=== PATIENT | female | born 1960 | race African-American/Black ===

== ENCOUNTER 2020-08-14 20:43 | Inpatient (IN) | payer MEDICARE, MEDICAID, SELFPAY ==
[2020-08-14] VITALS (7 sets, daily range): BP systolic 159–188; BP diastolic 77–93; PULSE 82–131; RESP 16–30; TEMP 36.6–37.3; O2SAT 99–100
--- NOTE | ~2020-08-14 | XR_ITS ---
EXAMINATION: XR abdomen/kub 1V DATE: 08/15/2020 15:28 INDICATION: Nonfunctioning femoral dialysis catheter. TECHNIQUE: A supine view of the abdomen was obtained. COMPARISON: None. FINDINGS: Large-bore right femoral dialysis catheter with distal tip projecting over the expected region of the confluence of the inferior vena cava and right common iliac vein. Normal bowel gas pattern with mode rate amount of scattered colonic stool. Visualized lung bases are clear. IMPRESSION: 1. Right femoral central venous catheter in expected position with distal tip tip near the junction o f the inferior vena cava and right common iliac vein. Reviewed, dictated and finalized at location A. IMPRESSION: 1. Right femoral central venous catheter in expected position with distal tip t ip near the junction of the inferior vena cava and right common iliac vein.
--- NOTE | ~2020-08-14 | XR_ITS ---
EXAMINATION: XR abdomen/kub 1V INDICATION: Lower abdominal pain, nausea and vomiting TECHNIQUE: Supine view of the abdomen is obtained. COMPARISON: 08/15/2020 FINDINGS: A right-sided femoral catheter ends with its tip projecting to the right of midline at the level of the L4 vertebral body. The bowel gas pattern is normal. No dilated loops of bowel are eviden t. IMPRESSION: 1. No radiographic correlate for the patient's symptoms. Reviewed, dictated and finalized at location A.
--- NOTE | ~2020-08-14 | XR_ITS ---
EXAMINATION: XR foot LT min 3V DATE: 08/14/2020 23:12 INDICATION: Dorsal left foot pain TECHNIQUE: Dorsoplantar, two oblique and lateral views of the left foot were obtained. COMPARISON: None. FINDINGS: Alignment is normal. No fracture. Joint spaces are normal. Diffuse osteopenia. Small enthesophytes an d minimal enthesopathic ossification at the calcaneal insertion of the distal Achilles tendon. Additi onal small enthesophytes at the dorsal aspect of the navicular cuneiform articulation. Mild soft tiss ue swelling over the dorsum of the hindfoot. IMPRESSION: 1. No acute osseous abnormality. Reviewed, dictated and finalized at location A.
--- NOTE | ~2020-08-14 | XR_ITS ---
EXAMINATION: XR chest port-a-cath/central EXAM DATE: 08/19/2020 11:21 INDICATION: Tunneled catheter insertion. TECHNIQUE: Portable AP frontal chest x-ray was obtained. Comparison is made to prior examination from 08/14/2020. FINDINGS: There is a new right-sided Aguilar catheter, IJ approach, in position. No evidence of postp rocedure pneumothorax. There is no focal acute air space disease. There are no pleural effusions. Car diomediastinal silhouette is normal. There is aortic arteriosclerosis. The bones are osteopenic. The re are bony degenerative changes. IMPRESSION: 1. Catheter in position. 2. No evidence postprocedure pneumothorax. Reviewed, dictated and finalized at location B.
--- NOTE | ~2020-08-14 | US_ITS ---
EXAMINATION: US right upper quadrant DATE: 08/21/2020 08:42 INDICATION: Nausea and vomiting. TECHNIQUE: Multiple grayscale and Doppler ultrasound images of the abdomen were obtained. COMPARISON: None FINDINGS: The visualized portions of the head and body of the pancreas are normal. The liver is hilda l without focal lesion. There is normal flow in main portal vein. The gallbladder is normal in size. No gallstones or gallbladder wall thickening. There was no sonographic Woods sign. The common duct i s normal and measures 4 mm. There is a 1.7 cm cyst in right kidney. There is increased parenchymal ec hogenicity in right kidney, consistent with medical renal disease. IMPRESSION: 1. Increased renal parenchymal echogenicity, consistent with medical renal disease. Reviewed, dictated and finalized at location D. IMPRESSION: 1. Increased renal parenchymal echogenicity, consistent with medical renal dise ase.
--- NOTE | ~2020-08-14 | US_ITS ---
EXAMINATION: US renal BI EXAM DATE: 08/15/2020 08:27 INDICATION: Uremia. TECHNIQUE: Multiple grayscale and Doppler images of the kidneys were obtained (by a technologist who performed the scan) and subsequently reviewed. There is no prior study for comparison. FINDINGS: Right kidney: There is normal contour and increased echogenicity. It measures 8.7 x 5.5 x 4.9 centim eters. There are several right renal cysts, largest measuring 1.8 cm. There is no hydronephrosis. Left kidney: There is normal contour and increased echogenicity. It measures 8.9 x 4.9 x 5.1 centime ters. There is a renal cyst measuring 1.0 cm. There is no hydronephrosis. Bladder unremarkable. Both ureteral jets were confirmed in the bladder. IMPRESSION: 1. Echogenic renal parenchyma, medical renal disease. 2. Renal cysts. 3. No hydronephrosis. Reviewed, dictated and finalized at location A.
--- NOTE | ~2020-08-14 | XR_ITS ---
EXAMINATION: XR chest 2V DATE: 08/14/2020 21:46 INDICATION: Weakness and vomiting TECHNIQUE: frontal and lateral views of the chest were obtained. COMPARISON: None FINDINGS: The lungs are clear with no focal airspace opacities, pulmonary edema, pleural effusion or pneumothor ax. Cardiomegaly. Likely coronary artery stenting versus atherosclerotic calcification. Mild thoracic spondylosis. IMPRESSION: 1. Cardiomegaly. No acute cardiopulmonary disease. Reviewed, dictated and finalized at location A.
--- NOTE | ~2020-08-14 | XR_ITS ---
EXAMINATION: XR fl guide central line place DATE: 08/19/2020 11:08 INDICATION: Insertion of tunneled dialysis catheter TECHNIQUE: A single fluoroscopic spot image of the upper chest was obtained during procedure performe d by Dr. Bar. Radiologist was not present for the imaging or procedure. The amount of fluoroscopy ti me used during this procedure was 0.8 minutes. COMPARISON: None. FINDINGS: A right internal jugular central venous catheter is seen looping into the inferior neck and then exte nding caudally to at least the mid superior vena cava and beyond the inferior margin of the field of imaging. IMPRESSION: 1. Fluoroscopy utilized during right internal jugular central venous catheter placement the visualize d portion of which appears unremarkable on the provided image. See procedure note for further detail. Reviewed, dictated and finalized at location A. IMPRESSION: 1. Fluoroscopy utilized during right internal jugular central venous catheter p lacement the visualized portion of which appears unremarkable on the provided i mage. See procedure note for further detail.
--- NOTE | 2020-08-14 21:04 | ECG_ITS ---
Measurements Intervals [place] Rate: 116 P: 68 [place]: 133 QRS: -15 QRSD: 86 T: 120 QT: 334 QTc: 464 Interpretive Statements SINUS TACHYCARDIA ATRIAL PREMATURE COMPLEX LEFT ATRIAL ENLARGEMENT VOLTAGE CRITERIA FOR LVH CANNOT RULE OUT SEPTAL INFARCT, AGE INDETERMINATE ST-T WAVE ABNORMALITY IN HIGH LATERAL LEADS- CONSIDER ISCHEMIA BASELINE ARTIFACT- I, II, AVR, AVL, AVF, V1-V2 ABNORMAL ECG Electronically Signed On 08-15-2020 7:27:58 CDT by Amrit Harvey D.O.
--- NOTE | 2020-08-14 21:11 | ED.NAVMDI ---
HPI - Nausea/Vomiting/Diarrhea General Chief complaint: Nausea/Vomiting/Diarrhea Stated complaint: vomiting Time Seen by Provider: 08/14/20 20:56 Source: patient Mode of arrival: ambulatory History of Present Illness HPI Narrative: This patient is a 59 year old female with history of Stage 5 kidney disease, hypertension and hyperlipidemia who presents for evaluation of nausea and vomiting for 4 days. She denies associated abdominal pain, chest pain, fever or chills. She is preparing to have a AV fistula placed at [facility] on 08/24/20 so that she can get started on dialysis. She states she urinates very little. She has urinated a small amount today. She denies cough or sob. She reports weakness. MD elicited complaint: nausea and vomiting Related Data Home Medications Medication Instructions Recorded Confirmed aspirin 81 mg PO DAILY 08/14/20 08/15/20 atorvastatin 80 mg PO DAILY 08/14/20 08/15/20 clonidine HCl 0.3 mg PO BID 08/14/20 08/15/20 ezetimibe 10 mg PO DAILY 08/14/20 08/15/20 icosapent ethyl [Vascepa] 1 g PO DAILY 08/14/20 08/15/20 semaglutide [Ozempic] 0.5 mg SUBCUT WEEKLY 08/15/20 08/15/20 Allergies Allergy/AdvReac Type Severity Reaction Status Date / Time codeine Allergy Hives Verified 08/14/20 20:48 rivaroxaban [From Xarelto] Allergy Hives Verified 08/14/20 20:48 Review of Systems Review of Systems: All systems reviewed & are unremarkable except as noted in HPI and below Constitutional: Constitutional: Denies chills and Denies fever(s) Cardiovascular: Cardiovascular: Denies chest pain Respiratory: Respiratory: Denies cough and Denies dyspnea Gastrointestinal: Gastrointestinal: Denies abdominal pain, Denies diarrhea, Reports nausea and Reports vomiting Genitourinary: Genitourinary: Denies hematuria and Denies dysuria [facility] Past Medical History Medical History (Updated 08/15/20 @ 05:32 by Priyanka William MD) End-stage renal disease (ESRD) Hypertension Family History Family History (Updated 08/15/20 @ 00:59 by Lurdes Conley RN) Mother Acute myocardial infarction Multiple myeloma Mother Diabetes mellitus Sibling Liver cancer Social History Social History Smoking packs per day: 0.5 Smoking cigarettes per day: 10.0 Smoking status: Current every day smoker Tobacco type: cigarettes Additional smoking assessment comments: started smoking around age 16 Alcohol intake: never Substance use: current Substance use type: marijuana Gender identity (if verbalized by the patient): Female Spiritual care concerns: No Exam Const: General: no acute distress and alert Nutritional Appearance: thin Orientation/consciousness: patient oriented x3 HENMT: Head: normocephalic and atraumatic Face and sinus: face symmetric Mouth: Yes Normal oral and palatal mucosa present and Yes oropharynx normal Teeth and gingiva: poor dentition Eyes: Pupils: Equal, round and reactive pupils present EOM: EOMs intact bilaterally Chest: Chest palpation & inspection: normal inspection of the chest Resp: Effort & Inspection: normal respiratory effort, no retractions and no use of accessory muscles Auscultation: clear to auscultation bilaterally Cardio: Rate: regular rate Rhythm: regular rhythm Heart sounds: Murmur heart sound present GI: GI Palp: Yes Soft to palpation, No Tenderness to palpation present (GI), No Guarding due to palpation present (GI) and No Rigid due to palpation Skin: General skin exam: normal color Rashes: no rashes Neuro: General: patient oriented x3 and moves all extremities Extrem: Other: left foot swelling Psych: Mental Status: mental status grossly normal Affect: normal affect Course Reevaluation(s) Reevaluation #1: I discussed with patient that she will need to be admitted and the cause of her symptoms is likely that she needs dialysis. She reports her doctors are in [place] but she does not want to go there for care at
[2020-08-14] MEDS: ONDANSETRON INJ 4 MG/2 ML VIAL IV PUSH (21:12)
[2020-08-14] MEDS: SODIUM CHLORIDE 0.9% IV 500 ML 999 ML IV CONT (21:20)
--- NOTE | 2020-08-14 21:27 | PC.NURSE ---
Andrez took the EKG, I am just charting it for him.
[2020-08-14 21:34] LABS: Basophils Percent Auto 0.4 % (0.2-1.2); Eosinophils Percent Auto 9.1 % (0-4.4); Hematocrit 31.2 % (37.0-47.0); Hemoglobin 9.8 g/dL (12.0-15.0); Immature Granulocyte Absolute 0.04 K/mm3 (0.00-0.031); Immature Granulocyte Percent A 0.4 % (0-0.5); Lymphocytes Absolute Auto 1.61 K/mm3 (0.9-3.2); Lymphocytes Percent Auto 14.6 % (18.3-44.2); Mean Corpuscular HGB Conc 31.4 g/dl (32-36); Mean Corpuscular Hemoglobin 24.4 pg (26-34); Mean Corpuscular Volume 77.8 fl (80-100); Mean Platelet Volume 10.4 fl (7.4-10.4); Monocytes Absolute Auto 0.7 K/mm3 (0.1-0.6); Neutrophils Absolute Auto 7.7 K/mm3 (1.3-6.7); Neutrophils Percent Auto 69.5 % (45.5-73.1); Platelet Count Result 452 k/mm3 (150-375); Red Blood Count 4.01 M/mm3 (4.2-5.4); Red Cell Distribution Width 16.5 % (11.5-14.5)
[2020-08-14 21:41] LABS: Add Urine Microscopic? YES; Appearance Urine Cloudy (Clear); Bilirubin Urine Negative (Negative); Blood Urine Negative (Negative); Color Urine Yellow (Yellow); Glucose Urine UA Negative (Negative); Ketones Urine Negative (Negative); Leukocyte Esterase Ur Negative LEU/UL (Negative); Mucus Urine Rare /lpf; Nitrate Urine Negative (Negative); Protein Urine 3+ mg/dL (Negative); RBC Urine 0-2 /hpf (0-2); Specific Grav Ur 1.013 (1.001-1.035); Squamous Epithelial Cell Urine Many /hpf (Few); Urobilinogen Urine Negative mg/dL (<2.0)
[2020-08-14 21:50] LABS: Alanine Aminotransferase 16 U/L (4-35); Albumin Level 4.6 g/dL (3.5-5.1); Alkaline Phosphatase 116 U/L (38-126); Anion Gap 20 mmol/L (8-16); Aspartate Amino Transferase 19 U/L (14-36); Bilirubin,Total 0.3 mg/dL (0.2-1.3); Blood Urea Nitrogen 112 mg/dL (7-17); Calcium 10.1 mg/dL (8.4-10.2); Carbon Dioxide 20 mmol/L (22-30); Chloride 103 mmol/L (98-107); Estimated CRCL calculation 6 ml/min; Estimated Glomerular Filt Rate 7; Glucose 123 mg/dL (65-105); Potassium 3.5 mmol/L (3.4-5.0); Sodium 143 mmol/L (137-145)
[2020-08-14 22:25] LABS: Glucose Point of Care 102 (65-105)
[2020-08-14 22:32] LABS: Lactic Acid Reflex 0.8 mmol/L (0.7-2.1)
[2020-08-14] MEDS: SODIUM CHLORIDE 0.9% IV 1,000 ML 75 ML IV CONT (23:01)
[2020-08-15] VITALS (13 sets, daily range): BP systolic 142–190; BP diastolic 68–87; PULSE 60–88; RESP 12–18; TEMP 36.2–37.2; O2SAT 99–100; BMI 17.0
--- NOTE | 2020-08-15 00:40 | ADMGEN ---
This patient, Rayne Gracia, was admitted to Medical [facility]- at 0035. Patient/family oriented to hospital policies and general routines including ID bracelet, bed and alarms, visiting hours, pain management, procedures, bathroom and other care routines, personal items, smoking policy, room service/diet, and visiting hours. Valuables list has been completed. Information on how to activate the Rapid Response Team has been discussed. Patient/Family are encouraged to report perceived risks to care and to ask questions if they do not understand what they are told or what they should do.
[2020-08-15] MEDS: SODIUM CHLORIDE 0.9% IV 1,000 ML 75 ML IV CONT (02:26)
--- NOTE | 2020-08-15 05:41 | PM.IMHP ---
H&P: HPI History of Present Illness Date/Time: 08/15/20 06:10 Chief complaint: Nausea and vomiting Narrative: Rayne Gracia is a 59 year old female with a past medical history of hypertension, diabetes mellitus, and chronic kidney disease stage 5 not yet on dialysis who presented to the ER with nausea and vomiting. The patient reports to me that she has had 30-40 lb weight loss over the last 3-4 months. She has had progressive decreased appetite. She has noticed that over the last couple of weeks food has not tasted right. She has had progressive generalized fatigue and itching. Over the last 4 days she has developed nausea and vomiting of clear emesis. She denies any coffee-ground emesis or hematemesis. She has not had any associated abdominal pain or changes in bowel habits. She has had 2 days of a mild headache and has been less organized than usual and feels a bit confused. She has very little urine output over the last several days. She is scheduled to have an AV fistula placed 08/24/2020 4 anticipated need for dialysis in the near future. She denies any cough or congestion. She has not had any fevers or chills. She does have intermittent shortness of breath associated with her COPD. She has obstructive sleep apnea and uses CPAP at home. She does report chronic sharp bilateral lower extremity pain in her feet. The pain is worse in her left foot compared to her right. She denies a history of diabetic peripheral neuropathy. She has been told in the past that she may have some gout. Her feet are chronically tender to palpation but she has not noticed any swelling or wounds. The patient decided to come to this facility instead of going to [facility] because her brother is currently undergoing treatment for liver cancer and he did not feel well enough to drive her to [facility]. Review of Systems Review of Systems: Narrative: 12 systems were reviewed with pertinent positives and negatives per HPI. Except as documented in the HPI, all other systems were reviewed and are negative. 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 Diabetes mellitus Diabetic retinopathy End-stage renal disease (ESRD) Patient is scheduled to have an AV fistula placed 08/24/2020 Hyperlipidemia Hypertension Obstructive sleep apnea With CPAP use with a pressure of 9 Surgical History Surgical History (Updated 08/15/20 @ 08:05 by Martha June DO) History of left-sided carotid endarterectomy 2005 History of total hysterectomy with bilateral salpingo-oophorectomy (BSO) Due to uterine fibroid and menorrhagia Family History Family History Mother Acute myocardial infarction Multiple myeloma Diabetes mellitus Sibling Liver cancer Brother age 51 Social History Social History (Updated 08/15/20 @ 08:01 by Martha June DO) Smoking packs per day: 0.5 Smoking cigarettes per day: 10.0 Years smoked: 43 Smoking pack-years: 21.50 Smoking status: Current every day smoker Tobacco type: cigarettes Additional smoking assessment comments: started smoking around age 16 Alcohol intake: former Alcohol use details: She is a recovering alcoholic. She used to drink a pt of Nelly had day but quit drinking 11 years ago when she had to raise her granddaughter while her daughter was in custodial. Substance use: current Substance use type: marijuana Other substance usage details: Twice weekly Additional living arrangements comments: She lives at home with her mother has multiple myeloma and her brother who is suffering from liver cancer. Gender identity (if verbalized by the patient): Female
[2020-08-15 06:21] LABS: Anion Gap 19 mmol/L (8-16); Blood Urea Nitrogen 113 mg/dL (7-17); Calcium 9.2 mg/dL (8.4-10.2); Carbon Dioxide 17 mmol/L (22-30); Chloride 109 mmol/L (98-107); Estimated CRCL calculation 7 ml/min; Estimated Glomerular Filt Rate 9; Glucose 124 mg/dL (65-105); Potassium 3.7 mmol/L (3.4-5.0); Sodium 145 mmol/L (137-145)
[2020-08-15 07:38] LABS: Basophils Absolute Auto 0.1 K/mm3 (0.0-0.1); Basophils Percent Auto 0.5 % (0.2-1.2); Eosinophils Percent Auto 9.9 % (0-4.4); Hematocrit 29.5 % (37.0-47.0); Hemoglobin 9.3 g/dL (12.0-15.0); Immature Granulocyte Absolute 0.04 K/mm3 (0.00-0.031); Immature Granulocyte Percent A 0.4 % (0-0.5); Lymphocytes Absolute Auto 1.52 K/mm3 (0.9-3.2); Lymphocytes Percent Auto 15.1 % (18.3-44.2); Mean Corpuscular HGB Conc 31.5 g/dl (32-36); Mean Corpuscular Hemoglobin 24.5 pg (26-34); Mean Corpuscular Volume 77.6 fl (80-100); Monocytes Absolute Auto 0.9 K/mm3 (0.1-0.6); Monocytes Percent Auto 8.5 % (2.6-8.5); Neutrophils Absolute Auto 6.6 K/mm3 (1.3-6.7); Neutrophils Percent Auto 65.6 % (45.5-73.1); Platelet Count Result 411 k/mm3 (150-375); Red Cell Distribution Width 16.2 % (11.5-14.5); White Blood Count 10.1 K/mm3 (4.5-10.0)
[2020-08-15 08:34] LABS: Glucose Point of Care 122 (65-105)
[2020-08-15] MEDS: ASPIRIN 81 MG CHEWABLE TABLET PO (09:36)
[2020-08-15] MEDS: ATORVASTATIN 40 MG TABLET 80 MG PO (09:36)
[2020-08-15] MEDS: cloNIDine HCL 0.1 MG TABLET 0.3 MG PO ×2 (09:36→17:37)
[2020-08-15] MEDS: OMEGA 3 POLYUNSAT FATTY ACIDS 1 GM CAP PO (09:36)
[2020-08-15] MEDS: EZETIMIBE 10 MG TABLET PO (09:36)
--- NOTE | 2020-08-15 09:38 | PM.CNGS ---
Assessment and Plan Assessment and plan (1) End-stage renal disease (ESRD): Code(s): N18.6 - End stage renal disease Status: Chronic (2) Encounter for central line placement: Code(s): Z45.2 - Encounter for adjustment and management of vascular access device Status: Acute Assessment and Plan: no consultation was performed. Patient will have Brian catheter placed femoral vein at the bedside. This should suffice for acute dialysis needs this weekend. 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 Diabetes mellitus Diabetic retinopathy End-stage renal disease (ESRD) Patient is scheduled to have an AV fistula placed 08/24/2020 Hyperlipidemia Hypertension Obstructive sleep apnea With CPAP use with a pressure of 9 Surgical History Surgical History (Updated 08/15/20 @ 08:05 by Martha June DO) History of left-sided carotid endarterectomy 2004 History of total hysterectomy with bilateral salpingo-oophorectomy (BSO) Due to uterine fibroid and menorrhagia Family History Family History Mother Acute myocardial infarction Multiple myeloma Diabetes mellitus Sibling Liver cancer Brother age 51 Social History Social History (Updated 08/15/20 @ 08:01 by Martha June DO) Smoking packs per day: 0.5 Smoking cigarettes per day: 10.0 Years smoked: 43 Smoking pack-years: 21.50 Smoking status: Current every day smoker Tobacco type: cigarettes Additional smoking assessment comments: started smoking around age 16 Alcohol intake: former Alcohol use details: She is a recovering alcoholic. She used to drink a pt of Nelly had day but quit drinking 11 years ago when she had to raise her granddaughter while her daughter was in assisted. Substance use: current Substance use type: marijuana Other substance usage details: Twice weekly Additional living arrangements comments: She lives at home with her mother has multiple myeloma and her brother who is suffering from liver cancer. Gender identity (if verbalized by the patient): Female Spiritual care concerns: No Meds Home Medications and Allergies Home Medications Medication Instructions Recorded Confirmed Type aspirin 81 mg PO DAILY 08/14/20 08/15/20 History atorvastatin 80 mg PO DAILY 08/14/20 08/15/20 History clonidine HCl 0.3 mg PO BID 08/14/20 08/15/20 History ezetimibe 10 mg PO DAILY 08/14/20 08/15/20 History icosapent ethyl [Vascepa] 1 g PO DAILY 08/14/20 08/15/20 History semaglutide [Ozempic] 0.5 mg SUBCUT WEEKLY 08/15/20 08/15/20 History Allergies Allergy/AdvReac Type Severity Reaction Status Date / Time codeine Allergy Hives Verified 08/14/20 20:48 rivaroxaban [From Xarelto] Allergy Hives Verified 08/14/20 20:48 Vital Signs Vital Signs - 24 hr 08/14/20 20:45 08/14/20 21:48 08/14/20 21:49 Temperature 37.3 C Pulse Rate 131 H 84 86 Respiratory Rate 18 Blood Pressure 188/93 H 180/77 H 168/85 H Pulse Oximetry 100 08/14/20 21:50 08/14/20 21:51 08/14/20 21:52 Temperature Pulse Rate 82 97 94 Respiratory Rate 16 30 H Blood Pressure 180/77 H 187/87 H 168/85 H Pulse Oximetry 100 99 08/14/20 22:31 08/15/20 00:18 08/15/20 01:19 Temperature 36.6 C 37.2 C Pulse Rate 86 88 80 Respiratory Rate 18 18 16 Blood Pressure 159/83 H 165/80 H 168/70 H Pulse Oximetry 100 100 08/15/20 06:00 08/15/20 06:20 Temperature 36.8 C Pulse Rate 85 Respiratory Rate 16 Blood Pressure 187/6
--- NOTE | 2020-08-15 09:40 | P.OP_ITS ---
Procedure Note - Detailed Date of procedure: 08/15/20 Pre-op diagnosis: End-stage renal disease, inadequate venous acces end-stage renal disease, inadequate venous access Post-op diagnosis: same Procedure performed: placement right femoral Brian catheter for acute dialysis Description of procedure: the patient was supine in her hospital bed. methods time analyst-out as well as prep and drape was carried out. Full sterile precautions were used. Local anesthetic using 1% lidocaine was infiltrated in the area of the right femoral vein. Several punctures were required to get an adequate venous return. Eventually this was accomplished and I was able to pass a guidewire easily into the inferior vena cava. Additional local was infiltrated. The tract was dilated and a heparinized dual-lumen 20 cm Brian catheter was passed easily from the right femoral vein into the iliac and eventually the vena cava. Both ports aspirated blood and flushed easily. Both ports were flushed with heparin. Both ports were capped. The line was sutured to the skin with 2 0 nylon. Sterile dressing was applied. Patient tolerated the procedure well. Anesthesia: local ( 1% lidocaine) Surgeon: Rakan Bar MD Estimated blood loss (mL): 10 Drains: No Packing: No Pathology: none sent Complications: None Condition: stable Disposition: floor
[2020-08-15 11:36] LABS: Glucose Point of Care 105 (65-105)
--- NOTE | 2020-08-15 12:40 | P.CONNP_ITS ---
Assessment and Plan Assessment and plan (1) End-stage renal disease (ESRD): Code(s): N18.6 - End stage renal disease Status: Chronic Assessment and Plan: * progressive decline in kidney function per patient * referred for vascular access (AVF/AVG) by primary radioisotope technologist (Dr. Anthony Wetzel) * unfortunately, now with evidence of uremic symptoms * plan initiate renal replacement therapy/dialysis -- would have preferred placement of tunneled HD catheter but noted temporary HD catheter placed this AM so for treatment today * plan tunneled HD catheter sometime next week * outpatient dialysis arrangements to be done under the care of Dr. Wetzel (2) Uremia: Code(s): N19 - Unspecified kidney failure Status: Acute Assessment and Plan: * as evidenced by symptoms on admission * per patient these symptoms have been progressively getting worse last few months: - weight loss - progressive decline in appetite. - food not tasting right - fatigue - itching (due to rising phosphorus?) - nausea/vomiting * should improve with dialysis and removal of the uremic toxins but it may take some time (3) Uncontrolled hypertension: Code(s): I10 - Essential (primary) hypertension Status: Chronic Assessment and Plan: * partly due to ESRD but suspect inability to take oral BP medications playing a role * a component of rebound HTN as will since missed doses of clonidine * dialysis may help to some degree * resume oral medications as tolerated * follow trend of hemodynamics (4) Anemia: Code(s): D64.9 - Anemia, unspecified Status: Chronic Assessment and Plan: * likely due to ESRD * check iron studies * Epogen with HD * start IV venofer with HD if needed * follow trend of H/H (5) Metabolic acidosis: Code(s): E87.2 - Acidosis Status: Chronic Assessment and Plan: * due to ESRD * should correct with dialysis * follow trend (6) Renal osteodystrophy: Code(s): N25.0 - Renal osteodystrophy Status: Chronic Assessment and Plan: * check phosphorus and PTH * follow parameters (7) Diabetes mellitus: Qualifiers: Chronic kidney disease stage: stage 5, not on chronic dialysis Diabetes mellitus complication detail: with chronic kidney disease Diabetes mellitus complication status: with kidney complications Diabetes mellitus halfway insulin use: without rat exterminator use Diabetes mellitus type: type 2 Qualified Code(s): E11.22 - Type 2 diabetes mellitus with diabetic chronic kidney disease; N18.5 - Chronic kidney disease, stage 5 Code(s): E11.9 - Type 2 diabetes mellitus without complications Status: Chronic Assessment and Plan: * follow accuchecks * on SSI Will continue to follow. History of Present Illness Reason for Consult Consult date: 08/15/20 Reason for consult: end stage renal disease Chief Complaint Chief complaint: End-stage renal disease, inadequate venous acces History of Present Illness Narrative: The patient is a 59 year old female with a past medical history as outlined below who presented to the [facility] ER with complaints of nausea and vomiting. Along with the nausea and vomiting that was a more recent symptom, she also reports a 30-40 weight loss over the last several months associated with progressive decline in appetite and the sensation that food is not tasting right. Other
--- NOTE | 2020-08-15 12:40 | PM.CNNEP ---
Assessment and Plan Assessment and plan (1) End-stage renal disease (ESRD): Code(s): N18.6 - End stage renal disease Status: Chronic Assessment and Plan: progressive decline in kidney function per patient referred for vascular access (AVF/AVG) by primary cableman (Dr. Anthony Wetzel) unfortunately, now with evidence of uremic symptoms plan initiate renal replacement therapy/dialysis -- would have preferred placement of tunneled HD catheter but noted temporary HD catheter placed this AM so for treatment today plan tunneled HD catheter sometime next week outpatient dialysis arrangements to be done under the care of Dr. Wetzel (2) Uremia: Code(s): N19 - Unspecified kidney failure Status: Acute Assessment and Plan: as evidenced by symptoms on admission per patient these symptoms have been progressively getting worse last few months: - weight loss - progressive decline in appetite. - food not tasting right - fatigue - itching (due to rising phosphorus?) - nausea/vomiting should improve with dialysis and removal of the uremic toxins but it may take some time (3) Uncontrolled hypertension: Code(s): I10 - Essential (primary) hypertension Status: Chronic Assessment and Plan: partly due to ESRD but suspect inability to take oral BP medications playing a role a component of rebound HTN as will since missed doses of clonidine dialysis may help to some degree resume oral medications as tolerated follow trend of hemodynamics (4) Anemia: Code(s): D64.9 - Anemia, unspecified Status: Chronic Assessment and Plan: likely due to ESRD check iron studies Epogen with HD start IV venofer with HD if needed follow trend of H/H (5) Metabolic acidosis: Code(s): E87.2 - Acidosis Status: Chronic Assessment and Plan: due to ESRD should correct with dialysis follow trend (6) Renal osteodystrophy: Code(s): N25.0 - Renal osteodystrophy Status: Chronic Assessment and Plan: check phosphorus and PTH follow parameters (7) Diabetes mellitus: Qualifiers: Chronic kidney disease stage: stage 5, not on chronic dialysis Diabetes mellitus complication detail: with chronic kidney disease Diabetes mellitus complication status: with kidney complications Diabetes mellitus residential door installer insulin use: without residential door installer use Diabetes mellitus type: type 2 Qualified Code(s): E11.22 - Type 2 diabetes mellitus with diabetic chronic kidney disease; N18.5 - Chronic kidney disease, stage 5 Code(s): E11.9 - Type 2 diabetes mellitus without complications Status: Chronic Assessment and Plan: follow accuchecks on SSI Will continue to follow. History of Present Illness Reason for Consult Consult date: 08/15/20 Reason for consult: end stage renal disease Chief Complaint Chief complaint: End-stage renal disease, inadequate venous acces History of Present Illness Narrative: The patient is a 59 year old female with a past medical history as outlined below who presented to the [facility] ER with complaints of nausea and vomiting. Along with the nausea and vomiting that was a more recent symptom, she also reports a 30-40 weight loss over the last several months associated with progressive decline in appetite and the sensation that food is not tasting right. Other associated symptoms include generalized fatigue, itching, and the aforementioned nausea and vomiting which was more been issue in the last 4-5 days. In spite of the nausea and vomiting, she has not noted any type of coffee-ground emesis or bilious content. Other new symptoms is that she has noticed a decrease in urine output in the last several days as well. it should be noted that the patient has fairly advanced chronic kidney disease and was tenta
--- NOTE | 2020-08-15 13:22 | PM.IMPN ---
Progress Note: A&P Assessment and Plan (1) End-stage renal disease (ESRD): Code(s): N18.6 - End stage renal disease Status: Chronic Assessment and Plan: The patient is reporting multiple symptoms consistent with worsening uremia and renal function. Nephrology has been consulted and appreciate recommendations. Temporary HD catheter placed per General Surgery this morning. Appears she will be going for HD. She is feeling better today. Appears she will be going for tunneled catheter next week Await further recommendations from Nephrology Monitor Trend kidney function, uremia (2) Uncontrolled hypertension: Code(s): I10 - Essential (primary) hypertension Status: Chronic Assessment and Plan: BP elevated likely due to ESRD; suspect improvement with HD. She used to be on an ARB but was d/c given worsening renal function. She had not taken her home clonidine given her N/V. Continue home clonidine Monitor (3) Uremia: Code(s): N19 - Unspecified kidney failure Status: Acute Assessment and Plan: Likely secondary to #1. Suspect improvement with HD. Further recommendation from Nephrology appreciated. See above a/p (4) Diabetes mellitus: Qualifiers: Diabetes mellitus type: type 2 Diabetes mellitus installation specialist insulin use: without installation specialist use Diabetes mellitus complication status: with kidney complications Diabetes mellitus complication detail: with chronic kidney disease Chronic kidney disease stage: stage 5, not on chronic dialysis Qualified Code(s): E11.22 - Type 2 diabetes mellitus with diabetic chronic kidney disease; N18.5 - Chronic kidney disease, stage 5 Code(s): E11.9 - Type 2 diabetes mellitus without complications Status: Chronic Assessment and Plan: BGL seems well controlled. Accuchecks ACHS, hypoglycemia protocol, correctional insulin, diabetic diet Ozempic on hold given it is NF (5) Obstructive sleep apnea: Code(s): G47.33 - Obstructive sleep apnea (adult) (pediatric) Status: Acute Assessment and Plan: Continue home CPAP (6) Hyperlipidemia: Code(s): E78.5 - Hyperlipidemia, unspecified Status: Acute Assessment and Plan: LFTs WNL Continue home statin, zetia, and Vascepa (7) Coronary artery disease: Code(s): I25.10 - Atherosclerotic heart disease of [place] coronary artery without angina pectoris Status: Acute Assessment and Plan: Reports [place] in mid 30s. No acute issues Continue with aspirin and statin Monitor (8) Left foot pain: Code(s): M79.672 - Pain in left foot Status: Acute Assessment and Plan: She thinks she may have injured the foot after stepping on it wrong . She says ice helps but tylenol does not help. Xray of foot shows no acute osseous abnormality but shows enthesophytes at dorsal aspect of navicular cuneiform articulation and soft tissue swelling over dorsum of hindfoot. Will do ice packs for now Tylenol PRN for pain as I would like to refrain from NSAIDs given kidney disease Subjective Date/time seen: 08/15/20 13:22 Interval history: Patient is a 59 yo F with hypertension, diabetes mellitus, and chronic kidney disease stage 5 not yet on dialysis who is seen in follow up for CKD5 with uremia likely from worsening kidney disease. Patient states she is feeling better today. Her main complaint is her left foot pain. She states she may have stepped on her foot wrong and now is having some pain over the top of her left foot. She notes producing little urine and occasionally has some lower abdominal pressure; no dysuria. No other complaints a
[2020-08-15 14:09] LABS: Hepatitis B Surface Antigen Negative (Negative)
[2020-08-15 14:15] LABS: HAV RESULT Negative (Negative); Hepatitis B Core IgM Result Negative (Negative)
[2020-08-15 14:27] LABS: Hepatitis B Surface Anti Res Negative; Hepatitis C Virus Antibody Negative (Negative)
[2020-08-15] MEDS: HEPARIN SODIUM 1,000 UNITS/ML VIAL 4000 UNITS (15:05)
[2020-08-15 16:17] LABS: Glucose Point of Care 107 (65-105)
[2020-08-15 21:40] LABS: Glucose Point of Care 146 (65-105)
[2020-08-16] VITALS (21 sets, daily range): BP systolic 120–192; BP diastolic 71–104; PULSE 54–96; RESP 14–18; TEMP 36.3–37.4; O2SAT 98–100
[2020-08-16 05:27] LABS: Basophils Percent Auto 0.5 % (0.2-1.2); Eosinophils Absolute Auto 0.8 K/mm3 (0-0.3); Eosinophils Percent Auto 9.9 % (0-4.4); Hemoglobin 9.1 g/dL (12.0-15.0); Immature Granulocyte Absolute 0.04 K/mm3 (0.00-0.031); Immature Granulocyte Percent A 0.5 % (0-0.5); Lymphocytes Absolute Auto 1.36 K/mm3 (0.9-3.2); Lymphocytes Percent Auto 16.8 % (18.3-44.2); Mean Corpuscular HGB Conc 31.4 g/dl (32-36); Mean Corpuscular Hemoglobin 24.6 pg (26-34); Mean Corpuscular Volume 78.4 fl (80-100); Mean Platelet Volume 10.3 fl (7.4-10.4); Monocytes Absolute Auto 0.5 K/mm3 (0.1-0.6); Monocytes Percent Auto 6.5 % (2.6-8.5); Neutrophils Absolute Auto 5.3 K/mm3 (1.3-6.7); Neutrophils Percent Auto 65.8 % (45.5-73.1); Platelet Count Result 359 k/mm3 (150-375); Red Cell Distribution Width 16.2 % (11.5-14.5); White Blood Count 8.1 K/mm3 (4.5-10.0)
[2020-08-16 05:50] LABS: Albumin Level 3.8 g/dL (3.5-5.1); Anion Gap 15 mmol/L (8-16); Blood Urea Nitrogen 93 mg/dL (7-17); Calcium 9.4 mg/dL (8.4-10.2); Carbon Dioxide 21 mmol/L (22-30); Chloride 109 mmol/L (98-107); Estimated CRCL calculation 7 ml/min; Estimated Glomerular Filt Rate 9; Glucose 119 mg/dL (65-105); Magnesium 2.1 mg/dL (1.6-2.3); Phosphorus 6.5 mg/dL (2.5-4.5); Potassium 3.6 mmol/L (3.4-5.0); Sodium 145 mmol/L (137-145)
[2020-08-16 06:10] LABS: Iron 25 ug/dL (37-170)
[2020-08-16 06:19] LABS: Percent Iron Saturation 11 % (20-50)
[2020-08-16] MEDS: ATORVASTATIN 40 MG TABLET 80 MG PO (07:52)
[2020-08-16] MEDS: ASPIRIN 81 MG CHEWABLE TABLET PO (07:52)
[2020-08-16] MEDS: cloNIDine HCL 0.1 MG TABLET 0.3 MG PO ×2 (07:53→20:18)
[2020-08-16] MEDS: OMEGA 3 POLYUNSAT FATTY ACIDS 1 GM CAP PO (07:53)
[2020-08-16] MEDS: EZETIMIBE 10 MG TABLET PO (07:53)
[2020-08-16 08:19] LABS: Glucose Point of Care 117 (65-105)
--- NOTE | 2020-08-16 11:22 | P.OP_ITS ---
Procedure Note - Detailed Date of procedure: 08/16/20 Pre-op diagnosis: End-stage renal disease, inadequate venous acces Right femoral vein catheter dysfunction Post-op diagnosis: same Procedure performed: removal 20 cm right femoral vein Brain catheter, placeme nt new 24 cm right femoral vein Brian catheter with side port Description of procedure: the patient was supine in her hospital bed. The dressing and the right femoral vein Brian catheter was removed. The sutures were removed. The area was thoroughly prepped with ChloraPrep. Sterile technique was used and sterile draping was then carried out. The catheter and the surrounding area was again prepped with ChloraPrep. Local anesthetic was infiltrated in the skin around the entrance site and where the sutures would later be placed. A guidewire was passed through the lumen of the current 20 cm Brian catheter. This catheter was then removed and discarded leaving the guidewire in place. The new 24 cm Brian catheter with side port was then passed over the guidewire and into the right femoral vein, hopefully passing well into the inferior vena cava. Once in position, the guidewire was removed. Both ports and the side port aspirated blood and flushed easily with saline. I flushed these ports as well with heparin and then capped and occluded them. The new catheter was sutured to the skin with 2 0 nylon suture. A sterile sand wiched type dressing was then placed. Patient tolerated the procedure well. Anesthesia: local ( 1% lidocaine) Surgeon: Rakan Bar MD Estimated blood loss (mL): 3 Drains: No Packing: No Pathology: none sent Complications: None Condition: stable Disposition: floor Findings: new catheter, longer length of 24 cm with side port, placed and in good condition.
[2020-08-16 11:32] LABS: Glucose Point of Care 127 (65-105)
--- NOTE | 2020-08-16 11:55 | P.PNNP_ITS ---
Progress Note: A&P Assessment and Plan (1) End-stage renal disease (ESRD): Code(s): N18.6 - End stage renal disease Status: Chronic Assessment and Plan: * progressive decline in kidney function per patient * referred for vascular access (AVF/AVG) by primary combiner operator (Dr. Anthony Segura) - to be done by Dr. Gong at [facility] in 2 weeks * unfortunately, now with evidence of uremic symptoms * plan initiate renal replacement therapy/dialysis -- would have preferred placement of tunneled HD catheter but not feasible till next week; temporary HD catheter replaced this AM so will attempt treatment today * plan tunneled HD catheter sometime next week * outpatient dialysis arrangements to be done under the care of Dr. Segura (2) Uremia: Code(s): N19 - Unspecified kidney failure Status: Acute Assessment and Plan: * as evidenced by symptoms on admission * per patient these symptoms have been progressively getting worse last few months: - weight loss - progressive decline in appetite. - food not tasting right - fatigue - itching (due to rising phosphorus?) - nausea/vomiting * should improve with dialysis and removal of the uremic toxins but it may take some time (3) Uncontrolled hypertension: Code(s): I10 - Essential (primary) hypertension Status: Chronic Assessment and Plan: * better at this time * partly due to ESRD but suspect inability to take oral BP medications playing a role * a component of rebound HTN as well since missed doses of clonidine * dialysis may help to some degree * resume oral medications as tolerated * consider adding ARB/KARL-I once on chronic dialysis * follow trend of hemodynamics (4) Anemia: Code(s): D64.9 - Anemia, unspecified Status: Chronic Assessment and Plan: * likely due to ESRD * anemia studies with iron deficiency * Epogen with HD * IV venofer with HD * follow trend of H/H (5) Metabolic acidosis: Code(s): E87.2 - Acidosis Status: Chronic Assessment and Plan: * due to ESRD * should correct with dialysis * follow trend (6) Renal osteodystrophy: Code(s): N25.0 - Renal osteodystrophy Status: Chronic Assessment and Plan: * check phosphorus and PTH * follow parameters (7) Diabetes mellitus: Qualifiers: Chronic kidney disease stage: stage 5, not on chronic dialysis Diabetes mellitus complication detail: with chronic kidney disease Diabetes mellitus complication status: with kidney complications Diabetes mellitus termite treater insulin use: without termite treater use Diabetes mellitus type: type 2 Qualified Code(s): E11.22 - Type 2 diabetes mellitus with diabetic chronic kidney disease; N18.5 - Chronic kidney disease, stage 5 Code(s): E11.9 - Type 2 diabetes mellitus without complications Status: Chronic Assessment and Plan: * follow accuchecks * on SSI Will continue to follow. Subjective Date/time seen: 08/16/20 11:55 Attempted dialysis treatment yesterday but temporary femoral HD catheter did not work despite multiple interventions (flushing, adjusting position, reducing blood flow...etc) so treatment abandoned; Dr. Bar placed a new longer femoral HD catheter as unclear when patient will be able to get tunneled HD catheter; BP is doing better at this time Exam Narrative: Exam Narrative: General: thin AA female in NAD Heart: normal S1 and S2; no ru
--- NOTE | 2020-08-16 11:55 | PM.PNNEP ---
Progress Note: A&P Assessment and Plan (1) End-stage renal disease (ESRD): Code(s): N18.6 - End stage renal disease Status: Chronic Assessment and Plan: progressive decline in kidney function per patient referred for vascular access (AVF/AVG) by primary helpdesk specialist (Dr. Anthony Segura) - to be done by Dr. Gong at [facility] in 2 weeks unfortunately, now with evidence of uremic symptoms plan initiate renal replacement therapy/dialysis -- would have preferred placement of tunneled HD catheter but not feasible till next week; temporary HD catheter replaced this AM so will attempt treatment today plan tunneled HD catheter sometime next week outpatient dialysis arrangements to be done under the care of Dr. Segura (2) Uremia: Code(s): N19 - Unspecified kidney failure Status: Acute Assessment and Plan: as evidenced by symptoms on admission per patient these symptoms have been progressively getting worse last few months: - weight loss - progressive decline in appetite. - food not tasting right - fatigue - itching (due to rising phosphorus?) - nausea/vomiting should improve with dialysis and removal of the uremic toxins but it may take some time (3) Uncontrolled hypertension: Code(s): I10 - Essential (primary) hypertension Status: Chronic Assessment and Plan: better at this time partly due to ESRD but suspect inability to take oral BP medications playing a role a component of rebound HTN as well since missed doses of clonidine dialysis may help to some degree resume oral medications as tolerated consider adding ARB/KARL-I once on chronic dialysis follow trend of hemodynamics (4) Anemia: Code(s): D64.9 - Anemia, unspecified Status: Chronic Assessment and Plan: likely due to ESRD anemia studies with iron deficiency Epogen with HD IV venofer with HD follow trend of H/H (5) Metabolic acidosis: Code(s): E87.2 - Acidosis Status: Chronic Assessment and Plan: due to ESRD should correct with dialysis follow trend (6) Renal osteodystrophy: Code(s): N25.0 - Renal osteodystrophy Status: Chronic Assessment and Plan: check phosphorus and PTH follow parameters (7) Diabetes mellitus: Qualifiers: Chronic kidney disease stage: stage 5, not on chronic dialysis Diabetes mellitus complication detail: with chronic kidney disease Diabetes mellitus complication status: with kidney complications Diabetes mellitus mcc insulin use: without laborer marine terminal use Diabetes mellitus type: type 2 Qualified Code(s): E11.22 - Type 2 diabetes mellitus with diabetic chronic kidney disease; N18.5 - Chronic kidney disease, stage 5 Code(s): E11.9 - Type 2 diabetes mellitus without complications Status: Chronic Assessment and Plan: follow accuchecks on SSI Will continue to follow. Subjective Date/time seen: 08/16/20 11:55 Attempted dialysis treatment yesterday but temporary femoral HD catheter did not work despite multiple interventions (flushing, adjusting position, reducing blood flow...etc) so treatment abandoned; Dr. Bar placed a new longer femoral HD catheter as unclear when patient will be able to get tunneled HD catheter; BP is doing better at this time Exam Narrative: Exam Narrative: General: thin AA female in NAD Heart: normal S1 and S2; no rub Lungs: clear to auscultation Abdomen: soft, nontender, nondistended, positive bowel sounds Extremities: no cyanosis or clubbing; no edema Skin: warm and dry Objective Data Vital Signs Vital Signs: Vital Signs Temp Pulse Resp BP Pulse Ox 08/16/20 09:31 96 120/80 08/16/20 09:28 76 150/76 H 08/16/20 09:25 55 L 170/81 H 08/16/20 05:39 36.4 C 64 16 167/75 H 98 08/15/20 20:57 36.2 C L 60 18 146/82 H 100 08/15/20 20:
--- NOTE | 2020-08-16 12:51 | PM.IMPN ---
Progress Note: A&P Assessment and Plan (1) End-stage renal disease (ESRD): Code(s): N18.6 - End stage renal disease Status: Chronic Assessment and Plan: The patient is reporting multiple symptoms consistent with worsening uremia and renal function. Nephrology has been consulted and appreciate recommendations. Temporary HD catheter replaced per General Surgery this morning after first HD catheter failed yesterday. Appears she will be going for HD today. She is feeling better today despite this. Evidence of mild met acidosis likely due to ESRD; suspect will improve with HD. Await further recommendations from Nephrology Monitor Trend kidney function, uremia (2) Uncontrolled hypertension: Code(s): I10 - Essential (primary) hypertension Status: Chronic Assessment and Plan: BP elevated likely due to ESRD; suspect improvement with HD. She used to be on an ARB but was d/c given worsening renal function. She had not taken her home clonidine prior to arrival given her N/V. BP somewhat improved today Continue home clonidine Monitor (3) Uremia: Code(s): N19 - Unspecified kidney failure Status: Acute Assessment and Plan: Likely secondary to #1. Suspect improvement with HD. Further recommendation from Nephrology appreciated. See above a/p (4) Diabetes mellitus: Qualifiers: Diabetes mellitus type: type 2 Diabetes mellitus superintendent terminal insulin use: without nursing home use Diabetes mellitus complication status: with kidney complications Diabetes mellitus complication detail: with chronic kidney disease Chronic kidney disease stage: stage 5, not on chronic dialysis Qualified Code(s): E11.22 - Type 2 diabetes mellitus with diabetic chronic kidney disease; N18.5 - Chronic kidney disease, stage 5 Code(s): E11.9 - Type 2 diabetes mellitus without complications Status: Chronic Assessment and Plan: BGL seems well controlled. Accuchecks ACHS, hypoglycemia protocol, correctional insulin, diabetic diet Ozempic on hold given it is NF (5) Obstructive sleep apnea: Code(s): G47.33 - Obstructive sleep apnea (adult) (pediatric) Status: Acute Assessment and Plan: Continue home CPAP (6) Hyperlipidemia: Code(s): E78.5 - Hyperlipidemia, unspecified Status: Acute Assessment and Plan: LFTs WNL Continue home statin, zetia, and Vascepa (7) Coronary artery disease: Code(s): I25.10 - Atherosclerotic heart disease of [place] coronary artery without angina pectoris Status: Acute Assessment and Plan: Reports [place] in mid 30s. No acute issues Continue with aspirin and statin Monitor (8) Left foot pain: Code(s): M79.672 - Pain in left foot Status: Acute Assessment and Plan: She thinks she may have injured the foot after stepping on it wrong . She says ice helps at home but tylenol does not help. Xray of foot shows no acute osseous abnormality but shows enthesophytes at dorsal aspect of navicular cuneiform articulation and soft tissue swelling over dorsum of hindfoot; suspect this is possible etiology. Will do ice packs PRN for now Tylenol PRN for pain as I would like to refrain from NSAIDs given kidney disease Subjective Date/time seen: 08/16/20 12:51 Interval history: Patient is a 59 yo F with hypertension, diabetes mellitus, and chronic kidney disease stage 5 not yet on dialysis who is seen in follow up for CKD5 with uremia likely from worsening kidney disease. Patient states she is feeling better again today, although has not gotten dialysis treatment yet as her first temporary catheter had failed;
[2020-08-16] MEDS: IRON SUCROSE COMPLEX 200 MG in SODIUM CHLORIDE 0.9% IV 50 ML 240 MG IVPB (17:44)
[2020-08-16] MEDS: EPOETIN ALFA-EPBX 10,000 UNITS/ML VIAL 10000 UNITS IV PUSH (17:44)
[2020-08-16] MEDS: HEPARIN SODIUM 1,000 UNITS/ML VIAL 4000 UNITS (18:59)
[2020-08-16 19:37] LABS: Glucose Point of Care 84 (65-105)
[2020-08-16 20:36] LABS: Glucose Point of Care 125 (65-105)
[2020-08-17] VITALS (20 sets, daily range): BP systolic 105–165; BP diastolic 46–75; PULSE 60–114; RESP 16–22; TEMP 36.4–37; O2SAT 94–100; BMI 17.2
[2020-08-17 05:32] LABS: Hematocrit 29.1 % (37.0-47.0); Hemoglobin 9.2 g/dL (12.0-15.0); Mean Corpuscular HGB Conc 31.6 g/dl (32-36); Mean Corpuscular Hemoglobin 24.1 pg (26-34); Mean Corpuscular Volume 76.4 fl (80-100); Mean Platelet Volume 9.4 fl (7.4-10.4); Platelet Count Result 278 k/mm3 (150-375); Red Blood Count 3.81 M/mm3 (4.2-5.4); White Blood Count 8.6 K/mm3 (4.5-10.0)
[2020-08-17 06:05] LABS: Anion Gap 13 mmol/L (8-16); Blood Urea Nitrogen 39 mg/dL (7-17); Calcium 9.1 mg/dL (8.4-10.2); Carbon Dioxide 28 mmol/L (22-30); Chloride 101 mmol/L (98-107); Estimated CRCL calculation 10 ml/min; Estimated Glomerular Filt Rate 13; Glucose 129 mg/dL (65-105); Phosphorus 4.8 mg/dL (2.5-4.5); Potassium 3.5 mmol/L (3.4-5.0); Sodium 142 mmol/L (137-145)
[2020-08-17 06:11] LABS: Parathyroid Intact 238.6 pg/mL (7.5-53.5)
[2020-08-17 06:32] LABS: Vitamin D 25 Hydroxy 77.9 ng/mL
[2020-08-17 08:03] LABS: Glucose Point of Care 118 (65-105)
--- NOTE | 2020-08-17 09:47 | PM.IMPN ---
Progress Note: A&P Assessment and Plan (1) End-stage renal disease (ESRD): Code(s): N18.6 - End stage renal disease Status: Chronic Assessment and Plan: The patient is reporting multiple symptoms consistent with worsening uremia and renal function. Nephrology has been consulted and appreciate recommendations. Temporary HD catheter replaced per General Surgery 08/16 after first HD catheter failed the day prior. She had HD yesterday with improvement in Cr and BUN and met acidosis. She is feeling nauseous today, but willing to re-try Zofran for her symptoms. Await further recommendations from Nephrology Monitor Trend kidney function, uremia (2) Uncontrolled hypertension: Code(s): I10 - Essential (primary) hypertension Status: Chronic Assessment and Plan: BP elevated likely due to ESRD; suspect improvement with HD. She used to be on an ARB but was d/c given worsening renal function. She had not taken her home clonidine prior to arrival given her N/V. BP 150s sys today Continue home clonidine Monitor (3) Uremia: Code(s): N19 - Unspecified kidney failure Status: Acute Assessment and Plan: Likely secondary to #1. Suspect improvement with HD. Further recommendation from Nephrology appreciated. See above a/p (4) Diabetes mellitus: Qualifiers: Diabetes mellitus type: type 2 Diabetes mellitus supervisor furnace process insulin use: without chcf use Diabetes mellitus complication status: with kidney complications Diabetes mellitus complication detail: with chronic kidney disease Chronic kidney disease stage: stage 5, not on chronic dialysis Qualified Code(s): E11.22 - Type 2 diabetes mellitus with diabetic chronic kidney disease; N18.5 - Chronic kidney disease, stage 5 Code(s): E11.9 - Type 2 diabetes mellitus without complications Status: Chronic Assessment and Plan: BGL seems well controlled. Accuchecks ACHS, hypoglycemia protocol, correctional insulin, diabetic diet Ozempic on hold given it is NF (5) Obstructive sleep apnea: Code(s): G47.33 - Obstructive sleep apnea (adult) (pediatric) Status: Acute Assessment and Plan: Continue home CPAP (6) Hyperlipidemia: Code(s): E78.5 - Hyperlipidemia, unspecified Status: Acute Assessment and Plan: Continue home statin, zetia, and Vascepa (7) Coronary artery disease: Code(s): I25.10 - Atherosclerotic heart disease of [place] coronary artery without angina pectoris Status: Acute Assessment and Plan: Reports [place] in mid-30s. No acute issues Continue with aspirin and statin Monitor (8) Left foot pain: Code(s): M79.672 - Pain in left foot Status: Acute Assessment and Plan: She thinks she may have injured the foot after stepping on it wrong . She says ice helps at home but tylenol does not help. Xray of foot shows no acute osseous abnormality but shows enthesophytes at dorsal aspect of navicular cuneiform articulation and soft tissue swelling over dorsum of hindfoot; suspect this is possible etiology. Will do ice packs PRN for now Tylenol PRN for pain as I would like to refrain from NSAIDs given kidney disease Subjective Date/time seen: 08/17/20 09:47 Interval history: Patient is a 59 yo F with hypertension, diabetes mellitus, and chronic kidney disease stage 5 not yet on dialysis who is seen in follow up for CKD5 with uremia likely from worsening kidney disease. Patient states she is feeling nauseous today but has not vomited. She said Paddy made her even sicker last time she tried it, but is willing to try it again. She tells me she
[2020-08-17] MEDS: ATORVASTATIN 40 MG TABLET 80 MG PO (10:33)
[2020-08-17] MEDS: cloNIDine HCL 0.1 MG TABLET 0.3 MG PO ×2 (10:33→17:15)
[2020-08-17] MEDS: EZETIMIBE 10 MG TABLET PO (10:34)
[2020-08-17] MEDS: ASPIRIN 81 MG CHEWABLE TABLET PO (10:34)
[2020-08-17] MEDS: OMEGA 3 POLYUNSAT FATTY ACIDS 1 GM CAP PO (10:34)
[2020-08-17 12:58] LABS: Glucose Point of Care 118 (65-105)
--- NOTE | 2020-08-17 13:10 | PCNSR ---
On 08/17/20, the student, Devika Martínez, provided care and completed [facility] documentation on this patient. I have reviewed the student's documentation and agree with the findings.
[2020-08-17] MEDS: CENTRAL LINE FLUSH 10 ML IV PUSH ×3 (15:41→21:31)
--- NOTE | 2020-08-17 15:48 | P.PNNP_ITS ---
Progress Note: A&P Assessment and Plan (1) End-stage renal disease (ESRD): Code(s): N18.6 - End stage renal disease Status: Chronic Assessment and Plan: * progressive decline in kidney function per patient * referred for vascular access (AVF/AVG) by primary health administration teacher (Dr. Anthony Segura) - to be done by Dr. Gong at [facility] in 2 weeks * now has a femoral catheter. * She will get dialysis today. * She will get a PermCath at some point. (2) Uremia: Code(s): N19 - Unspecified kidney failure Status: Acute Assessment and Plan: * as evidenced by symptoms on admission * per patient these symptoms have been progressively getting worse last few months: - weight loss - progressive decline in appetite. - food not tasting right - fatigue - itching (due to rising phosphorus?) - nausea/vomiting * No problems with fluid overload. * Hopefully the uremic symptoms will improve over the next few weeks. (3) Uncontrolled hypertension: Code(s): I10 - Essential (primary) hypertension Status: Chronic Assessment and Plan: * Blood pressure still running a bit high anywhere from 150-190 for the most part. * Currently on clonidine. * Will add amlodipine and then fold in lisinopril after she has had a few more treatments. (4) Anemia: Code(s): D64.9 - Anemia, unspecified Status: Chronic Assessment and Plan: * likely due to ESRD * anemia studies with iron deficiency * Epogen with HD * IV venofer with HD * Hemoglobin is 9.2. (5) Metabolic acidosis: Code(s): E87.2 - Acidosis Status: Chronic Assessment and Plan: * Today's bicarbonate up to 28. * On no bicarbonate supplements. (6) Renal osteodystrophy: Code(s): N25.0 - Renal osteodystrophy Status: Chronic Assessment and Plan: * Phosphorus level is okay. * PTH is in range. (7) Diabetes mellitus: Qualifiers: Diabetes mellitus type: type 2 Diabetes mellitus mcfp insulin use: without mcfp use Diabetes mellitus complication status: with kidney complications Diabetes mellitus complication detail: with chronic kidney disease Chronic kidney disease stage: stage 5, not on chronic dialysis Qualified Code(s): E11.22 - Type 2 diabetes mellitus with diabetic chronic kidney disease; N18.5 - Chronic kidney disease, stage 5 Code(s): E11.9 - Type 2 diabetes mellitus without complications Status: Chronic Assessment and Plan: * follow accuchecks * on SSI Subjective Date/time seen: 08/17/20 15:48 Interval history: Patient feels a little better today. She was still nauseated yesterday. She had her 1st dialysis yesterday and it went well. She denies any chest pain or shortness of breath Review of Systems Cardiovascular: Cardiovascular: Reports no additional cardiovascular complaints Respiratory: Respiratory: Reports no additional respiratory complaints Gastrointestinal: Gastrointestinal: Reports no additional gastrointestinal com plaints Genitourinary: Genitourinary: Reports no additional female genitourinary complaints Exam Narrative: Exam Narrative: General: thin AA female in NAD Heart: normal S1 and S2; no rub or gallop Lungs: clear Abdomen: soft, nontender, nondistended, positive bowel sounds Extremities: no cyanosis or clubbing; no
--- NOTE | 2020-08-17 15:48 | PM.PNNEP ---
Progress Note: A&P Assessment and Plan (1) End-stage renal disease (ESRD): Code(s): N18.6 - End stage renal disease Status: Chronic Assessment and Plan: progressive decline in kidney function per patient referred for vascular access (AVF/AVG) by primary service mechanic (Dr. Anthony Segura) - to be done by Dr. Gong at [facility] in 2 weeks now has a femoral catheter. She will get dialysis today. She will get a PermCath at some point. (2) Uremia: Code(s): N19 - Unspecified kidney failure Status: Acute Assessment and Plan: as evidenced by symptoms on admission per patient these symptoms have been progressively getting worse last few months: - weight loss - progressive decline in appetite. - food not tasting right - fatigue - itching (due to rising phosphorus?) - nausea/vomiting No problems with fluid overload. Hopefully the uremic symptoms will improve over the next few weeks. (3) Uncontrolled hypertension: Code(s): I10 - Essential (primary) hypertension Status: Chronic Assessment and Plan: Blood pressure still running a bit high anywhere from 150-190 for the most part. Currently on clonidine. Will add amlodipine and then fold in lisinopril after she has had a few more treatments. (4) Anemia: Code(s): D64.9 - Anemia, unspecified Status: Chronic Assessment and Plan: likely due to ESRD anemia studies with iron deficiency Epogen with HD IV venofer with HD Hemoglobin is 9.2. (5) Metabolic acidosis: Code(s): E87.2 - Acidosis Status: Chronic Assessment and Plan: Today's bicarbonate up to 28. On no bicarbonate supplements. (6) Renal osteodystrophy: Code(s): N25.0 - Renal osteodystrophy Status: Chronic Assessment and Plan: Phosphorus level is okay. PTH is in range. (7) Diabetes mellitus: Qualifiers: Diabetes mellitus type: type 2 Diabetes mellitus ad terminal makeup operator insulin use: without fpc use Diabetes mellitus complication status: with kidney complications Diabetes mellitus complication detail: with chronic kidney disease Chronic kidney disease stage: stage 5, not on chronic dialysis Qualified Code(s): E11.22 - Type 2 diabetes mellitus with diabetic chronic kidney disease; N18.5 - Chronic kidney disease, stage 5 Code(s): E11.9 - Type 2 diabetes mellitus without complications Status: Chronic Assessment and Plan: follow accuchecks on SSI Subjective Date/time seen: 08/17/20 15:48 Interval history: Patient feels a little better today. She was still nauseated yesterday. She had her 1st dialysis yesterday and it went well. She denies any chest pain or shortness of breath Review of Systems Cardiovascular: Cardiovascular: Reports no additional cardiovascular complaints Respiratory: Respiratory: Reports no additional respiratory complaints Gastrointestinal: Gastrointestinal: Reports no additional gastrointestinal complaints Genitourinary: Genitourinary: Reports no additional female genitourinary complaints Exam Narrative: Exam Narrative: General: thin AA female in NAD Heart: normal S1 and S2; no rub or gallop Lungs: clear Abdomen: soft, nontender, nondistended, positive bowel sounds Extremities: no cyanosis or clubbing; no edema Skin: no rash Objective Data Vital Signs Vital Signs: Vital Signs - 24 hr 08/16/20 16:07 08/16/20 16:18 08/16/20 16:30 Temperature 36.4 C L Pulse Rate 64 58 L 70 Respiratory Rate 18 Blood Pressure 168/90 H 192/86 H 169/87 H Pulse Oximetry 08/16/20 16:45 08/16/20 17:00 08/16/20 17:15 Temperature Pulse Rate 75 77 73 Respiratory Rate Blood Pressure 166/86 H 161/95 H 182/95 H Pulse Oximetry 08/16/20 17:30 08/16/20 17:45 08/16/20 18:00 Temperature Pulse Rate 79 80 81
[2020-08-17 17:01] LABS: Glucose Point of Care 128 (65-105)
[2020-08-17] MEDS: amLODIPine BESYLATE 5 MG TABLET PO (17:14)
--- NOTE | 2020-08-17 18:01 | PC.NURSE ---
patient went to dialysis per bed, report given to hammer smith
[2020-08-17] MEDS: HEPARIN SODIUM 1,000 UNITS/ML VIAL 1000 UNITS IV PUSH ×2 (18:27→21:15)
[2020-08-17] MEDS: HEPARIN SODIUM 1,000 UNITS/ML VIAL 500 UNITS IV PUSH ×3 (18:30→20:30)
[2020-08-17] MEDS: EPOETIN ALFA-EPBX 10,000 UNITS/ML VIAL 10000 UNITS IV PUSH (20:26)
[2020-08-17] MEDS: IRON SUCROSE COMPLEX 200 MG in SODIUM CHLORIDE 0.9% IV 50 ML 240 MG IVPB (21:30)
[2020-08-17 21:39] LABS: Glucose Point of Care 133 (65-105)
[2020-08-18] VITALS (20 sets, daily range): BP systolic 78–176; BP diastolic 34–97; PULSE 62–702; RESP 15–28; TEMP 36.8–37.9; O2SAT 94–100
[2020-08-18 05:53] LABS: Hematocrit 33.5 % (37.0-47.0); Hemoglobin 10.3 g/dL (12.0-15.0); Mean Corpuscular HGB Conc 30.7 g/dl (32-36); Mean Corpuscular Hemoglobin 24.6 pg (26-34); Mean Platelet Volume 10.2 fl (7.4-10.4); Platelet Count Result 275 k/mm3 (150-375); Red Blood Count 4.19 M/mm3 (4.2-5.4); Red Cell Distribution Width 16.3 % (11.5-14.5); White Blood Count 12.2 K/mm3 (4.5-10.0)
[2020-08-18] MEDS: CENTRAL LINE FLUSH 10 ML IV PUSH ×3 (06:12→21:00)
[2020-08-18 06:25] LABS: Albumin Level 4.2 g/dL (3.5-5.1); Anion Gap 14 mmol/L (8-16); Blood Urea Nitrogen 25 mg/dL (7-17); Calcium 9.4 mg/dL (8.4-10.2); Carbon Dioxide 30 mmol/L (22-30); Chloride 96 mmol/L (98-107); Estimated CRCL calculation 9 ml/min; Estimated Glomerular Filt Rate 14; Glucose 114 mg/dL (65-105); Magnesium 1.9 mg/dL (1.6-2.3); Phosphorus 5.1 mg/dL (2.5-4.5); Potassium 3.8 mmol/L (3.4-5.0); Sodium 140 mmol/L (137-145)
[2020-08-18 08:03] LABS: Glucose Point of Care 96 (65-105)
[2020-08-18] MEDS: EPOETIN ALFA-EPBX 10,000 UNITS/ML VIAL 10000 UNITS IV PUSH (10:27)
--- NOTE | 2020-08-18 10:32 | P.PNNP_ITS ---
Progress Note: A&P Assessment and Plan (1) End-stage renal disease (ESRD): Code(s): N18.6 - End stage renal disease Status: Chronic Assessment and Plan: * progressive decline in kidney function per patient * referred for vascular access (AVF/AVG) by primary vice president global digital marketing (Dr. Anthony Segura) - to be done by Dr. Gong at [facility] in 2 weeks * now has a femoral catheter. * She will get dialysis today. * She will get a PermCath at some point. I reached to Dr. Bar for plans to place this. She will need to before she goes home. (2) Uremia: Code(s): N19 - Unspecified kidney failure Status: Acute Assessment and Plan: * as evidenced by symptoms on admission * per patient these symptoms have been progressively getting worse last few months: - weight loss - progressive decline in appetite. - food not tasting right - fatigue - itching (due to rising phosphorus?) - nausea/vomiting * No problems with fluid overload. * Hopefully the uremic symptoms will improve over the next few weeks. * She still has some nausea. I talked with SAMUEL Piper. He is considering x-rays of she does not get better (3) Uncontrolled hypertension: Code(s): I10 - Essential (primary) hypertension Status: Chronic Assessment and Plan: * Blood pressure still running a bit high anywhere from 150-190 for the most part. * Currently on clonidine and amlodipine. * Blood pressures seems to be a little bit better today. (4) Anemia: Code(s): D64.9 - Anemia, unspecified Status: Chronic Assessment and Plan: * likely due to ESRD * anemia studies with iron deficiency * Epogen with HD * IV venofer with HD * Hemoglobin is 9.2. (5) Metabolic acidosis: Code(s): E87.2 - Acidosis Status: Chronic Assessment and Plan: * Today's bicarbonate up to 28. * On no bicarbonate supplements. (6) Renal osteodystrophy: Code(s): N25.0 - Renal osteodystrophy Status: Chronic Assessment and Plan: * Phosphorus level is okay. * PTH is in range. (7) Diabetes mellitus: Qualifiers: Diabetes mellitus type: type 2 Diabetes mellitus keno terminal operator insulin use: without retirement use Diabetes mellitus complication status: with kidney complications Diabetes mellitus complication detail: with chronic kidney disease Chronic kidney disease stage: stage 5, not on chronic dialysis Qualified Code(s): E11.22 - Type 2 diabetes mellitus with diabetic chronic kidney disease; N18.5 - Chronic kidney disease, stage 5 Code(s): E11.9 - Type 2 diabetes mellitus without complications Status: Chronic Assessment and Plan: * follow accuchecks * on SSI Subjective Date/time seen: 08/18/20 10:32 Interval history: Patient is on dialysis and tolerating it well. Blood pressure is okay. She did have some nausea and vomiting. She had this earlier today as well. Ultrafiltration was turned off. She was seen at 945 am Possibly she still uremic. Exam Narrative: Exam Narrative: General: thin AA female in NAD Heart: normal S1 and S2; no rub or gallop Lungs: clear Abdomen: soft, nontender, nondistended, positive bowel sounds Extremities: no cyanosis or clubbing; no edema Skin: no rash or subcu nodules Objective Data Vital Signs Vital Signs: Vital Signs - 24 hr
--- NOTE | 2020-08-18 10:32 | PM.PNNEP ---
Progress Note: A&P Assessment and Plan (1) End-stage renal disease (ESRD): Code(s): N18.6 - End stage renal disease Status: Chronic Assessment and Plan: progressive decline in kidney function per patient referred for vascular access (AVF/AVG) by primary sound assistant (Dr. Anthony Segura) - to be done by Dr. Gong at [facility] in 2 weeks now has a femoral catheter. She will get dialysis today. She will get a PermCath at some point. I reached to Dr. Bar for plans to place this. She will need to before she goes home. (2) Uremia: Code(s): N19 - Unspecified kidney failure Status: Acute Assessment and Plan: as evidenced by symptoms on admission per patient these symptoms have been progressively getting worse last few months: - weight loss - progressive decline in appetite. - food not tasting right - fatigue - itching (due to rising phosphorus?) - nausea/vomiting No problems with fluid overload. Hopefully the uremic symptoms will improve over the next few weeks. She still has some nausea. I talked with SAMUEL Piper. He is considering x-rays of she does not get better (3) Uncontrolled hypertension: Code(s): I10 - Essential (primary) hypertension Status: Chronic Assessment and Plan: Blood pressure still running a bit high anywhere from 150-190 for the most part. Currently on clonidine and amlodipine. Blood pressures seems to be a little bit better today. (4) Anemia: Code(s): D64.9 - Anemia, unspecified Status: Chronic Assessment and Plan: likely due to ESRD anemia studies with iron deficiency Epogen with HD IV venofer with HD Hemoglobin is 9.2. (5) Metabolic acidosis: Code(s): E87.2 - Acidosis Status: Chronic Assessment and Plan: Today's bicarbonate up to 28. On no bicarbonate supplements. (6) Renal osteodystrophy: Code(s): N25.0 - Renal osteodystrophy Status: Chronic Assessment and Plan: Phosphorus level is okay. PTH is in range. (7) Diabetes mellitus: Qualifiers: Diabetes mellitus type: type 2 Diabetes mellitus manager long term care insulin use: without retirement use Diabetes mellitus complication status: with kidney complications Diabetes mellitus complication detail: with chronic kidney disease Chronic kidney disease stage: stage 5, not on chronic dialysis Qualified Code(s): E11.22 - Type 2 diabetes mellitus with diabetic chronic kidney disease; N18.5 - Chronic kidney disease, stage 5 Code(s): E11.9 - Type 2 diabetes mellitus without complications Status: Chronic Assessment and Plan: follow accuchecks on SSI Subjective Date/time seen: 08/18/20 10:32 Interval history: Patient is on dialysis and tolerating it well. Blood pressure is okay. She did have some nausea and vomiting. She had this earlier today as well. Ultrafiltration was turned off. She was seen at 945 am Possibly she still uremic. Exam Narrative: Exam Narrative: General: thin AA female in NAD Heart: normal S1 and S2; no rub or gallop Lungs: clear Abdomen: soft, nontender, nondistended, positive bowel sounds Extremities: no cyanosis or clubbing; no edema Skin: no rash or subcu nodules Objective Data Vital Signs Vital Signs: Vital Signs - 24 hr 08/17/20 14:00 08/17/20 17:13 08/17/20 18:15 Temperature 36.8 C 36.9 C Pulse Rate 60 70 64 Respiratory Rate 16 16 Blood Pressure 161/72 H 140/70 165/73 H Pulse Oximetry 100 08/17/20 18:30 08/17/20 18:45 08/17/20 19:00 Temperature Pulse Rate 62 78 76 Respiratory Rate Blood Pressure 162/75 H 128/74 117/57 L Pulse Oximetry 08/17/20 19:15 08/17/20 19:30 08/17/20 19:45 Temperature Pulse Rate 86 88 78 Respiratory Rate Blood Pressure 116/59 L 115/63 111/67 Pulse Oximetry 08/17/20 20:00
[2020-08-18] MEDS: ONDANSETRON INJ 4 MG/2 ML VIAL IV PUSH (11:58)
[2020-08-18] MEDS: ASPIRIN 81 MG CHEWABLE TABLET PO (11:58)
[2020-08-18] MEDS: EZETIMIBE 10 MG TABLET PO (11:58)
[2020-08-18] MEDS: cloNIDine HCL 0.1 MG TABLET 0.3 MG PO ×2 (11:58→17:09)
[2020-08-18] MEDS: amLODIPine BESYLATE 5 MG TABLET PO (11:58)
[2020-08-18] MEDS: OMEGA 3 POLYUNSAT FATTY ACIDS 1 GM CAP PO (11:58)
[2020-08-18] MEDS: ATORVASTATIN 40 MG TABLET 80 MG PO (11:58)
--- NOTE | 2020-08-18 14:17 | PM.IMPN ---
Progress Note: A&P Assessment and Plan (1) End-stage renal disease (ESRD): Code(s): N18.6 - End stage renal disease Status: Chronic Assessment and Plan: The patient was reporting multiple symptoms consistent with worsening uremia and renal function. Nephrology has been consulted and appreciate recommendations. Temporary HD catheter replaced per General Surgery 08/16 after first HD catheter failed the day prior. She had HD the past several days with improvement in Cr and BUN and met acidosis. She is feeling nauseous/vomiting today; suspect due to uremia, but will do KUB and UA to rule out other etiologies; leukocytosis noted as well. Await further recommendations from Nephrology Will do compazine PRN for n/v KUB and UA to rule out other etiologies Monitor Trend kidney function, uremia (2) Uncontrolled hypertension: Code(s): I10 - Essential (primary) hypertension Status: Chronic Assessment and Plan: BP elevated earlier in stay likely due to ESRD; suspect improvement with HD. She used to be on an ARB but was d/c given worsening renal function. She had not taken her home clonidine prior to arrival given her N/V. BP 120s sys today after HD Continue home clonidine Monitor (3) Uremia: Code(s): N19 - Unspecified kidney failure Status: Acute Assessment and Plan: Likely secondary to #1. Suspect improvement with HD. Further recommendation from Nephrology appreciated. See above a/p (4) Diabetes mellitus: Qualifiers: Diabetes mellitus type: type 2 Diabetes mellitus long term care pharmacist insulin use: without long term care pharmacist use Diabetes mellitus complication status: with kidney complications Diabetes mellitus complication detail: with chronic kidney disease Chronic kidney disease stage: stage 5, not on chronic dialysis Qualified Code(s): E11.22 - Type 2 diabetes mellitus with diabetic chronic kidney disease; N18.5 - Chronic kidney disease, stage 5 Code(s): E11.9 - Type 2 diabetes mellitus without complications Status: Chronic Assessment and Plan: BGL seems well controlled. Accuchecks ACHS, hypoglycemia protocol, correctional insulin, diabetic diet Ozempic on hold given it is NF (5) Obstructive sleep apnea: Code(s): G47.33 - Obstructive sleep apnea (adult) (pediatric) Status: Acute Assessment and Plan: Continue home CPAP (6) Hyperlipidemia: Code(s): E78.5 - Hyperlipidemia, unspecified Status: Acute Assessment and Plan: Continue home statin, zetia, and Vascepa (7) Coronary artery disease: Code(s): I25.10 - Atherosclerotic heart disease of [place] coronary artery without angina pectoris Status: Acute Assessment and Plan: Reports RI in mid-30s. No acute issues Continue with aspirin and statin Monitor (8) Left foot pain: Code(s): M79.672 - Pain in left foot Status: Acute Assessment and Plan: She thinks she may have injured the foot after stepping on it wrong . She says ice helps at home but tylenol does not help. Xray of foot shows no acute osseous abnormality but shows enthesophytes at dorsal aspect of navicular cuneiform articulation and soft tissue swelling over dorsum of hindfoot; suspect this is possible etiology. Will do ice packs PRN for now Tylenol PRN for pain as I would like to refrain from NSAIDs given kidney disease (9) Leukocytosis: Code(s): D72.829 - Elevated white blood cell count, unspecified Status: Acute Assessment and Plan: WBC 12.2k today; possibly leukemoid reaction 2/2 n/v? vs infection such as UTI. Patient also noting vague lower abdominal pain
[2020-08-18 16:43] LABS: Glucose Point of Care 136 (65-105)
--- NOTE | 2020-08-18 17:00 | WPDANESEPP ---
Anes - Eval Pre Procedure Procedure: Operation Date: 08/19/20 12:00 Proposed Procedures p Insertion Tunneled Dialysis Catheter With Fluoroscopy - Rakan Bar MD Date/Time: 08/18/20 17:00 Pre Op Diagnosis: End-stage renal disease, inadequate venous acces Patient Data Age: 59 Gender: F Height: 5 ft 4 in Weight: 40.1 kg Last Vital Signs Temp 98.8 F 08/18/20 14:00 Pulse 120 H 08/18/20 14:00 Resp 15 08/18/20 14:00 BP 127/67 08/18/20 14:00 Pulse Ox 99 08/18/20 14:00 Allergies Allergy/AdvReac Type Severity Reaction Status Date / Time codeine Allergy Hives Verified 08/14/20 20:48 rivaroxaban [From Xarelto] Allergy Hives Verified 08/14/20 20:48 Home Medications Medication Instructions Recorded Confirmed Type aspirin 81 mg PO DAILY 08/14/20 08/15/20 History atorvastatin 80 mg PO DAILY 08/14/20 08/15/20 History clonidine HCl 0.3 mg PO BID 08/14/20 08/15/20 History ezetimibe 10 mg PO DAILY 08/14/20 08/15/20 History icosapent ethyl [Vascepa] 1 g PO DAILY 08/14/20 08/15/20 History semaglutide [Ozempic] 0.5 mg SUBCUT WEEKLY 08/15/20 08/15/20 History Laboratory Tests 08/17/20 08/17/20 08/18/20 16:49 21:29 05:02 WBC 12.2 K/mm3 H K/mm3 (4.5-10.0) RBC 4.19 M/mm3 L M/mm3 (4.2-5.4) Hgb 10.3 g/dL L g/dL (12.0-15.0) Hct 33.5 % L % (37.0-47.0) MCV 80.0 fl fl (80-100) MCH 24.6 pg L pg (26-34) MCHC 30.7 g/dl L g/dl (32-36) RDW 16.3 % H % (11.5-14.5) Plt Count 275 k/mm3 k/mm3 (150-375) MPV 10.2 fl fl (7.4-10.4) Sodium Potassium Chloride Carbon Dioxide Anion Gap BUN Creatinine Estim Creat Clear Calc Estimated GFR Glucose POC Capillary Glucose 128 mg/dl H mg/dl 133 mg/dl H mg/dl (65-105) (65-105) Calcium Phosphorus Magnesium Albumin Blood Type Antibody Screen 08/18/20 08/18/20 08/18/20 05:02 06:54 15:14 WBC RBC Hgb Hct MCV MCH MCHC RDW Plt Count MPV Sodium 140 mmol/L mmol/L (137-145) Potassium 3.8 mmol/L mmol/L (3.4-5.0) Chloride 96 mmol/L L mmol/L (98-107) Carbon Dioxide 30 mmol/L mmol/L (22-30) Anion Gap 14 mmol/L mmol/L (8-16) BUN 25 mg/dL H D mg/dL (7-17) Creatinine 3.90 mg/dL H mg/dL (0.7-1.0) Estim Creat Clear Calc 9 ml/min ml/min Estimated GFR 14 L (59 - ) Glucose 114 mg/dL H mg/dL (65-105) POC Capillary Glucose 96 mg/dl mg/dl (65-105) Calcium 9.4 mg/dL mg/dL (8.4-10.2) Phosphorus 5.1 mg/dL H mg/dL (2.5-4.5) Magnesium 1.9 mg/dL mg/dL (1.6-2.3) Albumin 4.2 g/dL g/dL (3.5-5.1) Blood Type B Positive Antibody Screen Negative 08/18/20 16:36 WBC RBC Hgb Hct MCV MCH MCHC RDW Plt Count MPV Sodium Potassium Chloride Carbon Dioxide Anion Gap BUN Creatinine Estim Creat Clear Calc Estimated GFR Glucose POC Capillary Glucose 136 mg/dl H mg/dl (65-105) Calcium Phosphorus Magnesium Albumin Blood Type Antibody Screen Patient hx anesthesia problems: none Family hx anesthesia problems: none PMFSH Past Medical History Medical History (Updated 08/18/20 @ 17:01 by Joby Lewis CRNA) Anemia Anxiety and depression COPD (chronic obstructive pulmonary disease) Coronary artery disease Patient reports she had an TN at age 36 in age 38 CVA (cerebral vascular accident)
[2020-08-18 21:50] LABS: Glucose Point of Care 213 (65-105)
[2020-08-19] VITALS (9 sets, daily range): BP systolic 100–157; BP diastolic 61–70; PULSE 71–90; RESP 11–19; TEMP 36.6–37; O2SAT 98–100
[2020-08-19 05:54] LABS: Basophils Absolute Auto 0.1 K/mm3 (0.0-0.1); Basophils Percent Auto 0.4 % (0.2-1.2); Eosinophils Absolute Auto 0.1 K/mm3 (0-0.3); Eosinophils Percent Auto 0.5 % (0-4.4); Hemoglobin 10.2 g/dL (12.0-15.0); Immature Granulocyte Absolute 0.16 K/mm3 (0.00-0.031); Immature Granulocyte Percent A 1.1 % (0-0.5); Lymphocytes Absolute Auto 2.01 K/mm3 (0.9-3.2); Lymphocytes Percent Auto 14.3 % (18.3-44.2); Mean Corpuscular HGB Conc 30.9 g/dl (32-36); Mean Corpuscular Hemoglobin 24.9 pg (26-34); Mean Corpuscular Volume 80.5 fl (80-100); Monocytes Percent Auto 7.2 % (2.6-8.5); Neutrophils Absolute Auto 10.8 K/mm3 (1.3-6.7); Neutrophils Percent Auto 76.5 % (45.5-73.1); Nucleated Red Blood Cells Absolute Auto 0.4 K/mm3 (0.0-0.012); Nucleated Red Blood Cells Perc 3.1 % (0.0-0.2); Platelet Count Result 287 k/mm3 (150-375); Red Cell Distribution Width 16.7 % (11.5-14.5); White Blood Count 14.1 K/mm3 (4.5-10.0)
[2020-08-19] MEDS: CENTRAL LINE FLUSH 10 ML IV PUSH (05:55)
[2020-08-19 06:10] LABS: Albumin Level 4.2 g/dL (3.5-5.1); Anion Gap 17 mmol/L (8-16); Blood Urea Nitrogen 36 mg/dL (7-17); Calcium 9.3 mg/dL (8.4-10.2); Carbon Dioxide 28 mmol/L (22-30); Chloride 93 mmol/L (98-107); Estimated CRCL calculation 8 ml/min; Estimated Glomerular Filt Rate 12; Glucose 162 mg/dL (65-105); Magnesium 2.2 mg/dL (1.6-2.3); Phosphorus 5.6 mg/dL (2.5-4.5); Potassium 4.4 mmol/L (3.4-5.0); Sodium 138 mmol/L (137-145)
--- NOTE | 2020-08-19 06:48 | WPDHPUPDATE1 ---
History and Physical Update Update Date/Time: 08/19/20 06:48 History and Physical has been reviewed, including an updated exam of the patient. There are NO changes in the patient's condition. Risks, benefits, and alternatives have been discussed and questions answered. Patient agrees to proceed with procedure.
[2020-08-19 07:52] LABS: Glucose Point of Care 165 (65-105)
[2020-08-19] MEDS: cloNIDine HCL 0.1 MG TABLET 0.3 MG PO ×2 (08:39→18:45)
[2020-08-19] MEDS: amLODIPine BESYLATE 5 MG TABLET PO (08:39)
[2020-08-19] MEDS: SODIUM CHLORIDE 0.9% IV 500 ML 30 ML IV CONT (08:55)
--- NOTE | 2020-08-19 09:11 | WPDANESEFPP ---
Anes - Eval Final PreProcedure Day of Procedure 08/19/20 09:11 Patient weight: cachectic Heart: regular rate and rhythm Lungs: clear to auscultation and normal air movement Airway: Mallampati scale class III Neurological: alert and oriented Last oral intake: >/= 8 hours ASA classification: IV Emergent: no Anesthetic plan: proceed Anesthesia type and monitoring: general GIVS and standard monitoring Informed Consent: The patient's anesthetic plan and its attendant risks and benefits were discussed with the patient/family/POA. Questions were solicited and answers provided to the satisfaction of the patient/family/POA.
[2020-08-19] MEDS: ceFAZolin 2 GM/D5W 50 ML 2 GM/50 ML BAG IVPB (10:05)
[2020-08-19] MEDS: LIDO 1%/EPINEPHRINE 1:100,000 20 ML VIAL INFILTRATE (10:34)
[2020-08-19] MEDS: HEPARIN SODIUM, PORCINE 10,000 UNITS/10 ML VIAL 5000 UNITS IRRIGATION (10:35)
[2020-08-19] MEDS: HEPARIN SOD FLUSH 500 UNITS/5 ML SYRINGE 10000 UNITS IV PUSH (10:38)
--- NOTE | 2020-08-19 11:21 | P.OP_ITS ---
Procedure Note - Detailed Date of procedure: 08/19/20 Pre-op diagnosis: End-stage renal disease, inadequate venous acces End-stage renal disease, inadequate venous access for dialysis Post-op diagnosis: same Procedure performed: Placement tunneled Dura Flow central venous catheter under fluoroscopy right internal jugular position, removal right femoral central venous catheter. Description of procedure: The patient was taken to surgery and IV sedation was administered. She was in a supine position with the head turned slightly to the left. The right neck and her upper chest were prepped and draped. She was p laced in Trendelenburg and after administering local anesthetic, the right internal jugular vein was cannulated and a guidewire was able to be passed into the superior vena cava. The position of the guidewire was documented by fluoroscopy. The patient was returned to a neutral position. The general lay out of the Dura Flow tunneled catheter was reviewed under fluoroscopy. Proposed counter incisions on the right neck leading up to the exit site of the guidewire were marked on the skin. Local anesthetic was infiltrated into each of these counter incisions and also around the exit site of the guidewire. Incisions were made at all these locations as well as the exit site of the guidewire. I then tunneled the 32 cm Dura Flow catheter retrograde starting on the right upper chest and proceeding through each counter incision until it exited adjacent to the guidewire in the upper right neck. I then passed serial dilators over the guidewire. The larger dilator with the sheath was then passed over the guidewire. Its position was reviewed with fluoroscopy and appeared to be satisfactory. I then removed the introducer and the guidewire. I pass the Dura Flow catheter into the sheath down into the superior vena cava. The sheath was removed. Any kinking was relieved the as the guidewire crossed the upper neck and turned into the internal jugular vein. I then checked the position of the tunneled dialysis catheter under fluoroscopy. The end appeared to be in the distal SVC and right atrium as planned. There was no kinking as it curved to go into the internal jugular vein. Both ports aspirated blood and flushed easily with heparin. A final flush was given to each of the ports. I then closed the counter incisions with subcuticular interrupted 4 O Vicryl suture. The dura Flow catheter was sutured to the skin with 3 0 nylon. The counter incisions were closed with Exofin surgical adhesive. A dressing was placed over the exit site of the catheter. I then removed my gown and gloves and exposed the right femoral Brian catheter. The dressing overlying the Brian catheter was removed. I placed sterile gloves on and then cut the sutures holding it in place. The right femoral Brian catheter was then removed without incident. Pressure was held on the site and a 4 by 4 dressing was applied. The patient tolerated these procedures well. She transferred to recovery in good condition. Counts were correct x2. Anesthesia: MAC and local (0.5% Marcaine with epinephrine) Surgeon: Rakan Bar MD Sole Splitter: Federico Hart Estimated blood loss (mL): 5 Drains: No Packing: No Pathology: none sent Complications: None Condition: stable Disposition: PACU Findings: Tunneled Dura Flow catheter tip in distal SVC, right atrial junction as expected.
[2020-08-19] MEDS: OMEGA 3 POLYUNSAT FATTY ACIDS 1 GM CAP PO (12:02)
[2020-08-19] MEDS: EZETIMIBE 10 MG TABLET PO (12:02)
[2020-08-19] MEDS: ASPIRIN 81 MG CHEWABLE TABLET PO (12:03)
[2020-08-19] MEDS: ATORVASTATIN 40 MG TABLET 80 MG PO (12:03)
[2020-08-19 12:38] LABS: Glucose Point of Care 159 (65-105)
[2020-08-19] MEDS: ACETAMINOPHEN 325 MG TABLET 650 MG PO (15:17)
--- NOTE | 2020-08-19 15:24 | P.PNNP_ITS ---
Progress Note: A&P Assessment and Plan (1) End-stage renal disease (ESRD): Code(s): N18.6 - End stage renal disease Status: Chronic Assessment and Plan: * progressive decline in kidney function per patient * referred for vascular access (AVF/AVG) by primary pianos and organs salesperson (Dr. Anthony Segura) - to be done by Dr. Gong at [facility] in 2 weeks * will get a PermCath done today. * She can be discharged once set up for an outpatient dialysis unit. (2) Uremia: Code(s): N19 - Unspecified kidney failure Status: Acute Assessment and Plan: * Gradually improving. (3) Uncontrolled hypertension: Code(s): I10 - Essential (primary) hypertension Status: Chronic Assessment and Plan: * Blood pressure Is better. (4) Anemia: Code(s): D64.9 - Anemia, unspecified Status: Chronic Assessment and Plan: * likely due to ESRD * anemia studies with iron deficiency * Epogen with HD * IV venofer with HD * Hemoglobin is 10.2. (5) Metabolic acidosis: Code(s): E87.2 - Acidosis Status: Chronic Assessment and Plan: * Today's bicarbonate up to 28. * On no bicarbonate supplements. (6) Renal osteodystrophy: Code(s): N25.0 - Renal osteodystrophy Status: Chronic Assessment and Plan: * Phosphorus level is okay. * PTH is in range. (7) Diabetes mellitus: Qualifiers: Diabetes mellitus type: type 2 Diabetes mellitus residential insulin use: without zigzag machine operator use Diabetes mellitus complication status: with kidney complications Diabetes mellitus complication detail: with chronic kidney disease Chronic kidney disease stage: stage 5, not on chronic dialysis Qualified Code(s): E11.22 - Type 2 diabetes mellitus with diabetic chronic kidney disease; N18.5 - Chronic kidney disease, stage 5 Code(s): E11.9 - Type 2 diabetes mellitus without complications Status: Chronic Assessment and Plan: * follow accuchecks * on SSI Subjective Date/time seen: 08/19/20 15:24 Interval history: Patient is Feeling okay. No nausea overnight. No shortness of breath Review of Systems Cardiovascular: Cardiovascular: Reports no additional cardiovascular complaints Respiratory: Respiratory: Reports no additional respiratory complaints Gastrointestinal: Gastrointestinal: Reports no additional gastrointestinal complaints Genitourinary: Genitourinary: Reports no additional female genitourinary complaints Exam Narrative: Exam Narrative: General: thin AA female in NAD Heart: normal S1 and S2; no rub or gallop Lungs: clear bilaterally Abdomen: soft, nontender, nondistended, positive bowel sounds Extremities: no cyanosis or clubbing; no edema Skin: no rash Objective Data Vital Signs Vital Signs: Vital Signs - 24 hr 08/18/20 20:00 08/18/20 20:59 08/18/20 22:10 Temperature 37.1 C Pulse Rate 83 83 Respiratory Rate 28 H 28 H Blood Pressure 78/42 L 98/58 L Pulse Oximetry 94 94 08/19/20 06:00 08/19/20 11:05 08/19/20 11:15 Temperature 36.7 C 36.8 C Pulse Rate 84 87 90 Respiratory Rate 16 11 L 15 Blood Pressure 100/61 118/70 106/70 Pulse Oximetry 98 100 100 08/19/20 11:30 08/19/20 11:45
--- NOTE | 2020-08-19 15:24 | PM.PNNEP ---
Progress Note: A&P Assessment and Plan (1) End-stage renal disease (ESRD): Code(s): N18.6 - End stage renal disease Status: Chronic Assessment and Plan: progressive decline in kidney function per patient referred for vascular access (AVF/AVG) by primary branch coordinator (Dr. Anthony Segura) - to be done by Dr. Gong at [facility] in 2 weeks will get a PermCath done today. She can be discharged once set up for an outpatient dialysis unit. (2) Uremia: Code(s): N19 - Unspecified kidney failure Status: Acute Assessment and Plan: Gradually improving. (3) Uncontrolled hypertension: Code(s): I10 - Essential (primary) hypertension Status: Chronic Assessment and Plan: Blood pressure Is better. (4) Anemia: Code(s): D64.9 - Anemia, unspecified Status: Chronic Assessment and Plan: likely due to ESRD anemia studies with iron deficiency Epogen with HD IV venofer with HD Hemoglobin is 10.2. (5) Metabolic acidosis: Code(s): E87.2 - Acidosis Status: Chronic Assessment and Plan: Today's bicarbonate up to 28. On no bicarbonate supplements. (6) Renal osteodystrophy: Code(s): N25.0 - Renal osteodystrophy Status: Chronic Assessment and Plan: Phosphorus level is okay. PTH is in range. (7) Diabetes mellitus: Qualifiers: Diabetes mellitus type: type 2 Diabetes mellitus intermediate accountant insulin use: without intermediate accountant use Diabetes mellitus complication status: with kidney complications Diabetes mellitus complication detail: with chronic kidney disease Chronic kidney disease stage: stage 5, not on chronic dialysis Qualified Code(s): E11.22 - Type 2 diabetes mellitus with diabetic chronic kidney disease; N18.5 - Chronic kidney disease, stage 5 Code(s): E11.9 - Type 2 diabetes mellitus without complications Status: Chronic Assessment and Plan: follow accuchecks on SSI Subjective Date/time seen: 08/19/20 15:24 Interval history: Patient is Feeling okay. No nausea overnight. No shortness of breath Review of Systems Cardiovascular: Cardiovascular: Reports no additional cardiovascular complaints Respiratory: Respiratory: Reports no additional respiratory complaints Gastrointestinal: Gastrointestinal: Reports no additional gastrointestinal complaints Genitourinary: Genitourinary: Reports no additional female genitourinary complaints Exam Narrative: Exam Narrative: General: thin AA female in NAD Heart: normal S1 and S2; no rub or gallop Lungs: clear bilaterally Abdomen: soft, nontender, nondistended, positive bowel sounds Extremities: no cyanosis or clubbing; no edema Skin: no rash Objective Data Vital Signs Vital Signs: Vital Signs - 24 hr 08/18/20 20:00 08/18/20 20:59 08/18/20 22:10 Temperature 37.1 C Pulse Rate 83 83 Respiratory Rate 28 H 28 H Blood Pressure 78/42 L 98/58 L Pulse Oximetry 94 94 08/19/20 06:00 08/19/20 11:05 08/19/20 11:15 Temperature 36.7 C 36.8 C Pulse Rate 84 87 90 Respiratory Rate 16 11 L 15 Blood Pressure 100/61 118/70 106/70 Pulse Oximetry 98 100 100 08/19/20 11:30 08/19/20 11:45 08/19/20 12:00 Temperature 37.0 C Pulse Rate 76 78 81 Respiratory Rate 17 16 17 Blood Pressure 116/70 109/65 127/64 Pulse Oximetry 100 100 100 08/19/20 12:25 Temperature 36.6 C Pulse Rate 72 Respiratory Rate 19 Blood Pressure 120/66 Pulse Oximetry 100 Intake/Output Intake/Output: Intake & Output 08/16/20 08/17/20 08/18/20 08/19/20 23:59 23:59 23:59 23:59 Intake Total 670 1080 490 150 Output Total 1050 1125 10 Balance -380 -45 490 140 Meds/Results Medications: Active Medications Generic Name Dose Route Start Last Admin Trade Name Freq PRN Reason Stop Dose Admin Acetaminophen 650 mg 08/15/20 13:43 08/19/20 15:17 Tylenol Tablet PO 650 mg Q6H PRN Admi
--- NOTE | 2020-08-19 15:42 | PM.IMPN ---
Progress Note: A&P Assessment and Plan (1) End-stage renal disease (ESRD): Code(s): N18.6 - End stage renal disease Status: Chronic Assessment and Plan: The patient was reporting multiple symptoms consistent with worsening uremia and renal function. Nephrology has been consulted and appreciate recommendations. Temporary HD catheter replaced per General Surgery 08/16 after first HD catheter failed the day prior. She had HD the past several days with improvement in Cr and BUN and met acidosis. She had tunneled HD catheter placed today per Dr. Bar Await further recommendations from Nephrology Will hold compazine;continue zofran PRN for n/v Likely discharge once OP HD is set up/confirmed; CC following and still awaiting confirmation. Monitor Trend kidney function, uremia (2) Uncontrolled hypertension: Code(s): I10 - Essential (primary) hypertension Status: Chronic Assessment and Plan: BP elevated earlier in stay likely due to ESRD; suspect improvement with HD. She used to be on an ARB but was d/c given worsening renal function. She had not taken her home clonidine prior to arrival given her N/V. BP 120s sys this afternoon Continue home clonidine Monitor (3) Uremia: Code(s): N19 - Unspecified kidney failure Status: Acute Assessment and Plan: Likely secondary to #1. Suspect improvement with HD. Further recommendation from Nephrology appreciated. See above a/p (4) Diabetes mellitus: Qualifiers: Diabetes mellitus type: type 2 Diabetes mellitus termite helper insulin use: without termite helper use Diabetes mellitus complication status: with kidney complications Diabetes mellitus complication detail: with chronic kidney disease Chronic kidney disease stage: stage 5, not on chronic dialysis Qualified Code(s): E11.22 - Type 2 diabetes mellitus with diabetic chronic kidney disease; N18.5 - Chronic kidney disease, stage 5 Code(s): E11.9 - Type 2 diabetes mellitus without complications Status: Chronic Assessment and Plan: BGL seems well controlled. Accuchecks ACHS, hypoglycemia protocol, correctional insulin, diabetic diet Ozempic on hold given it is NF (5) Obstructive sleep apnea: Code(s): G47.33 - Obstructive sleep apnea (adult) (pediatric) Status: Acute Assessment and Plan: Continue home CPAP (6) Hyperlipidemia: Code(s): E78.5 - Hyperlipidemia, unspecified Status: Acute Assessment and Plan: Continue home statin, zetia, and Vascepa (7) Coronary artery disease: Code(s): I25.10 - Atherosclerotic heart disease of [place] coronary artery without angina pectoris Status: Acute Assessment and Plan: Reports HI in mid-30s. No acute issues Continue with aspirin and statin Monitor (8) Left foot pain: Code(s): M79.672 - Pain in left foot Status: Acute Assessment and Plan: She thinks she may have injured the foot after stepping on it wrong . She says ice helps at home but tylenol does not help. Xray of foot shows no acute osseous abnormality but shows enthesophytes at dorsal aspect of navicular cuneiform articulation and soft tissue swelling over dorsum of hindfoot; suspect this is possible etiology. Pain has significantly improved overnight Continue ice packs PRN Tylenol PRN for pain as I would like to refrain from NSAIDs given kidney disease (9) Leukocytosis: Code(s): D72.829 - Elevated white blood cell count, unspecified Status: Acute Assessment and Plan: WBC 14.1k today; possibly leukemoid reaction 2/2 n/v? vs infection such as UTI, although patient not endor
[2020-08-19] MEDS: oxyCODONE/ACETAMINOPHEN (*CRX) 5-325 MG TABLET 0.5 TABLET PO ×2 (16:07→21:50)
[2020-08-19 16:33] LABS: Glucose Point of Care 186 (65-105)
[2020-08-19 20:49] LABS: Glucose Point of Care 159 (65-105)
[2020-08-20] VITALS (19 sets, daily range): BP systolic 106–167; BP diastolic 62–87; PULSE 63–130; RESP 16–20; TEMP 36.7–37.1; O2SAT 95–100
[2020-08-20] MEDS: oxyCODONE/ACETAMINOPHEN (*CRX) 5-325 MG TABLET 0.5 TABLET PO ×2 (04:00→14:11)
[2020-08-20 06:11] LABS: Basophils Absolute Auto 0.1 K/mm3 (0.0-0.1); Basophils Percent Auto 0.7 % (0.2-1.2); Eosinophils Absolute Auto 0.3 K/mm3 (0-0.3); Eosinophils Percent Auto 2.8 % (0-4.4); Hematocrit 29.3 % (37.0-47.0); Immature Granulocyte Absolute 0.07 K/mm3 (0.00-0.031); Immature Granulocyte Percent A 0.6 % (0-0.5); Lymphocytes Absolute Auto 1.77 K/mm3 (0.9-3.2); Lymphocytes Percent Auto 15.7 % (18.3-44.2); Mean Corpuscular HGB Conc 30.7 g/dl (32-36); Mean Corpuscular Volume 81.4 fl (80-100); Mean Platelet Volume 10.4 fl (7.4-10.4); Monocytes Absolute Auto 0.8 K/mm3 (0.1-0.6); Monocytes Percent Auto 6.9 % (2.6-8.5); Neutrophils Absolute Auto 8.2 K/mm3 (1.3-6.7); Neutrophils Percent Auto 73.3 % (45.5-73.1); Nucleated Red Blood Cells Absolute Auto 0.1 K/mm3 (0.0-0.012); Platelet Count Result 256 k/mm3 (150-375); Red Cell Distribution Width 16.6 % (11.5-14.5); White Blood Count 11.3 K/mm3 (4.5-10.0)
[2020-08-20 07:12] LABS: Albumin Level 3.8 g/dL (3.5-5.1); Anion Gap 20 mmol/L (8-16); Blood Urea Nitrogen 55 mg/dL (7-17); Calcium 8.5 mg/dL (8.4-10.2); Carbon Dioxide 25 mmol/L (22-30); Chloride 90 mmol/L (98-107); Glucose 114 mg/dL (65-105); Magnesium 2.2 mg/dL (1.6-2.3); Phosphorus 7.1 mg/dL (2.5-4.5); Sodium 135 mmol/L (137-145)
[2020-08-20 07:40] LABS: Glucose Point of Care 101 (65-105)
[2020-08-20 08:10] LABS: Estimated CRCL calculation 10 ml/min; Estimated Glomerular Filt Rate 8
--- NOTE | 2020-08-20 09:53 | P.PNAN_ITS ---
Anes - Prog Note Post-Op Date/Time: 08/20/20 09:53 Cardiovascular status: normal Respiratory status: normal Airway patency: baseline Mental status: baseline Post-Op hydration status: normal Vital Signs: Last Vital Signs Temp 37.1 C 08/20/20 04:58 Pulse 63 08/20/20 08:23 Resp 16 08/20/20 08:23 BP 137/65 08/20/20 04:58 Pulse Ox 100 08/20/20 08:23 Pain Score (VAS): 0 I/O: Intake & Output 08/19/20 08/20/20 08/20/20 23:59 07:59 15:59 Intake Total 440 300 120 Output Total 0 Balance 440 300 120 Laboratory Tests 08/20/20 04:11 08/20/20 05:20 08/19/20 08/19/20 08/19/20 12:28 16:30 20:15 WBC RBC Hgb Hct MCV MCH MCHC RDW Plt Count MPV Immature Gran % (Auto) Neut % (Auto) Lymph % (Auto) [place] % (Auto) Eos % (Auto) Baso % (Auto) Lymph # (Auto) [place] # (Auto) Eos # (Auto) Baso # (Auto) Abs Immat Gran (auto) Absolute Neuts (auto) Absolute Nucleated RBC Nucleated RBC % Sodium Potassium Chloride Carbon Dioxide Anion Gap BUN Creatinine Estim Creat Clear Calc Estimated GFR Glucose POC Capillary Glucose 159 H 186 H 159 H Calcium Phosphorus Magnesium Albumin 08/20/20 08/20/20 08/20/20 04:11 05:20 07:36 WBC 11.3 H RBC 3.60 L Hgb 9.0 L Hct 29.3 L MCV 81.4 MCH 25.0 L MCHC 30.7 L RDW 16.6 H Plt Count 256 MPV 10.4 Immature Gran % (Auto) 0.6 H Neut % (Auto) 73.3 H Lymph % (Auto) 15.7 L [place] % (Auto) 6.9 Eos % (Auto) 2.8 Baso % (Auto) 0.7 Lymph # (Auto) 1.77 [place] # (Auto) 0.8 H Eos # (Auto) 0.3 Baso # (Auto) 0.1 Abs Immat Gran (auto) 0.07 H Absolute Neuts (auto) 8.2 H Absolute Nucleated RBC 0.1 H Nucleated RBC % 1.0 H Sodium 135 L Potassium 4.0 Chloride 90 L Carbon Dioxide 25 Anion Gap 20 H BUN 55 H D Creatinine 6.30 H Estim Creat Clear Calc 10 Estimated GFR 8 L Glucose 114 H POC Capillary Glucose 101 Calcium 8.5 Phosphorus 7.1 H Magnesium 2.2 Albumin 3.8 Post-procedural complaints: none Patient Feedback: Patient satisfied with anesthetic care.
--- NOTE | 2020-08-20 11:22 | PCDIET ---
CALL RECEIVED FROM EDUCATION ADMINISTRATOR THAT HR KEEPS JUMPING UP IN 130'S THEN GOES BACK IN THE 70'S. WILL NOTIFY OWEN BAKER
--- NOTE | 2020-08-20 13:01 | PCDIET ---
Nutrition Follow-Up Complete: Inadequate energy intake related to end stage renal disease as evidenced by poor appetite and BMI of 17.3 kg/m2. Pt. will consume 90% of caloric needs abiding by renal diet and promoting weight gain. Goal: Goal not met. Continue with goal. Pt current nutrition is Renal Dialysis Nutrition recommendation: Agree Last recorded weight is 85.9 kg (last wt 45.6kg, question accuracy or this is wt in lbs. Recommend new wt) Bowel Motility:n No BM noted Labs Reviewed:GFR 8, Phos 7.1, Na 135 Meds Noted:NS, Lipitor, Zofran, Oxycodone, Fish Oil Additional Notes: Pt now receiving hemodialysis. Tunneled catheter placed yesterday. No N/V today. Better appetite. Dialysis received this am. Average intake is 35% of meals. Pt agreeable to Nepro BID. Nepro provides 425 kcal and 19.1g protein per serving. It is a good source of fiber and an excellent source of high quality protein to help meet nutritional needs and replace protein lost in dialysis. It is low in phosphorus, potassium, and sodium with a carbohydrate steady blend to manage blood glucose response. Edu on additional protein needs with dialysis provided. We will continue to monitor PO intake, labs, wt every five days.
[2020-08-20 13:07] LABS: Glucose Point of Care 97 (65-105)
--- NOTE | 2020-08-20 13:36 | P.PNNP_ITS ---
Progress Note: A&P Assessment and Plan (1) End-stage renal disease (ESRD): Code(s): N18.6 - End stage renal disease Status: Chronic Assessment and Plan: * progressive decline in kidney function per patient * referred for vascular access (AVF/AVG) by primary fermentation operator (Dr. Anthony Segura) - to be done by Dr. Gong at [facility] in 2 weeks * The patient had her Fourth dialysis treatment today. * she still has nausea. It is unclear if this is uremic or if this is because of dialysis. She says she does have some issues when not on the machine but its worst when she is on the machine. * I wonder if there is another reason for her nausea. * Her obstructive series shows no etiology for the nausea. * The she need more workup? Consider GI consult. Add a PPI. give 4 doses of ondansetron scheduled for 24 hours * if no other reason for the nausea is found and she continues to have problems on dialysis then perhaps she would want to switch to peritoneal dialysis. (2) Uremia: Code(s): N19 - Unspecified kidney failure Status: Acute Assessment and Plan: * Gradually improving. (3) Uncontrolled hypertension: Code(s): I10 - Essential (primary) hypertension Status: Chronic Assessment and Plan: * Blood pressure Is better. (4) Anemia: Code(s): D64.9 - Anemia, unspecified Status: Chronic Assessment and Plan: * likely due to ESRD * anemia studies with iron deficiency * Epogen with HD * IV venofer with HD * Hemoglobin is Up and down between 9 and 10.3. * Check stool guaiac. (5) Metabolic acidosis: Code(s): E87.2 - Acidosis Status: Chronic Assessment and Plan: * Today's bicarbonate Twenty-five * On no bicarbonate supplements. (6) Renal osteodystrophy: Code(s): N25.0 - Renal osteodystrophy Status: Chronic Assessment and Plan: * Phosphorus level is okay. * PTH is in range. (7) Diabetes mellitus: Qualifiers: Chronic kidney disease stage: stage 5, not on chronic dialysis Diabetes mellitus complication detail: with chronic kidney disease Diabetes mellitus complication status: with kidney complications Diabetes mellitus mcc insulin use: without mcc use Diabetes mellitus type: type 2 Qualified Code(s): E11.22 - Type 2 diabetes mellitus with diabetic chronic kidney disease; N18.5 - Chronic kidney disease, stage 5 Code(s): E11.9 - Type 2 diabetes mellitus without complications Status: Chronic Assessment and Plan: * follow accuchecks * on SSI Subjective Date/time seen: 08/20/20 13:36 Interval history: Patient is Feeling poorly. She had dialysis earlier today and had more nausea with the treatment. It was a somewhat gentle treatment today and we skipped yesterday. She says she has lost weight. She has lost some swelling. No shortness of breath She says I cannot go on living like this . She talks about and get all. I told the nurse about this and she has told SAMUEL Piper about this. Review of Systems Cardiovascular: Cardiovascular: Reports no additional cardiovascular complaints Respiratory: Respiratory: Reports no additional respiratory complaints Gastrointestinal: Gastrointestinal: Reports no additional gastrointestinal complaints Genitourinary: Genitourinary: Reports no additional female genitourinary com plaints Exam
--- NOTE | 2020-08-20 13:36 | PM.PNNEP ---
Progress Note: A&P Assessment and Plan (1) End-stage renal disease (ESRD): Code(s): N18.6 - End stage renal disease Status: Chronic Assessment and Plan: progressive decline in kidney function per patient referred for vascular access (AVF/AVG) by primary electrician office (Dr. Anthony Segura) - to be done by Dr. Gong at [facility] in 2 weeks The patient had her Fourth dialysis treatment today. she still has nausea. It is unclear if this is uremic or if this is because of dialysis. She says she does have some issues when not on the machine but its worst when she is on the machine. I wonder if there is another reason for her nausea. Her obstructive series shows no etiology for the nausea. The she need more workup? Consider GI consult. Add a PPI. give 4 doses of ondansetron scheduled for 24 hours if no other reason for the nausea is found and she continues to have problems on dialysis then perhaps she would want to switch to peritoneal dialysis. (2) Uremia: Code(s): N19 - Unspecified kidney failure Status: Acute Assessment and Plan: Gradually improving. (3) Uncontrolled hypertension: Code(s): I10 - Essential (primary) hypertension Status: Chronic Assessment and Plan: Blood pressure Is better. (4) Anemia: Code(s): D64.9 - Anemia, unspecified Status: Chronic Assessment and Plan: likely due to ESRD anemia studies with iron deficiency Epogen with HD IV venofer with HD Hemoglobin is Up and down between 9 and 10.3. Check stool guaiac. (5) Metabolic acidosis: Code(s): E87.2 - Acidosis Status: Chronic Assessment and Plan: Today's bicarbonate Twenty-five On no bicarbonate supplements. (6) Renal osteodystrophy: Code(s): N25.0 - Renal osteodystrophy Status: Chronic Assessment and Plan: Phosphorus level is okay. PTH is in range. (7) Diabetes mellitus: Qualifiers: Chronic kidney disease stage: stage 5, not on chronic dialysis Diabetes mellitus complication detail: with chronic kidney disease Diabetes mellitus complication status: with kidney complications Diabetes mellitus dedicated intermodal truck driver insulin use: without dedicated intermodal truck driver use Diabetes mellitus type: type 2 Qualified Code(s): E11.22 - Type 2 diabetes mellitus with diabetic chronic kidney disease; N18.5 - Chronic kidney disease, stage 5 Code(s): E11.9 - Type 2 diabetes mellitus without complications Status: Chronic Assessment and Plan: follow accuchecks on SSI Subjective Date/time seen: 08/20/20 13:36 Interval history: Patient is Feeling poorly. She had dialysis earlier today and had more nausea with the treatment. It was a somewhat gentle treatment today and we skipped yesterday. She says she has lost weight. She has lost some swelling. No shortness of breath She says I cannot go on living like this . She talks about and get all. I told the nurse about this and she has told SAMUEL Piper about this. Review of Systems Cardiovascular: Cardiovascular: Reports no additional cardiovascular complaints Respiratory: Respiratory: Reports no additional respiratory complaints Gastrointestinal: Gastrointestinal: Reports no additional gastrointestinal complaints Genitourinary: Genitourinary: Reports no additional female genitourinary complaints Exam Narrative: Exam Narrative: General: thin AA female in NAD Heart: normal S1 and S2; no rub or gallop Lungs: clear bilaterally Abdomen: soft, nontender, nondistended, positive bowel sounds Extremities: no cyanosis or clubbing; no edema Skin: no rash Objective Data Vital Signs Vital Signs: Vital Signs - 24 hr 08/19/20 20:00 08/19/20 20:01 08/20/20 04:58 Temperature 36.9 C 37.1 C Pulse Rate 71 71 63 Respiratory Rate 16 16 16 Blood Pressure 157/67 H 137/65 Pulse Oximetry 100 100 100
--- NOTE | 2020-08-20 13:53 | PM.IMPN ---
Progress Note: A&P Assessment and Plan (1) End-stage renal disease (ESRD): Code(s): N18.6 - End stage renal disease Status: Chronic Assessment and Plan: The patient was reporting multiple symptoms consistent with worsening uremia and renal function. Nephrology has been consulted and appreciate recommendations. Temporary HD catheter replaced per General Surgery 08/16 after first HD catheter failed the day prior. She had HD the past several days with improvement in Cr and BUN and met acidosis. She had tunneled HD catheter placed 08/[address] Bar Await further recommendations from Nephrology Will hold compazine;continue zofran PRN for n/v Likely discharge once OP HD is set up/confirmed; CC following and still awaiting confirmation. Monitor Trend kidney function, uremia (2) Uncontrolled hypertension: Code(s): I10 - Essential (primary) hypertension Status: Chronic Assessment and Plan: BP elevated earlier in stay likely due to ESRD; suspect improvement with HD. She used to be on an ARB but was d/c given worsening renal function. She had not taken her home clonidine prior to arrival given her N/V. BP 150s sys this afternoon Continue home clonidine Monitor (3) Uremia: Code(s): N19 - Unspecified kidney failure Status: Acute Assessment and Plan: Likely secondary to #1. Suspect improvement with HD. Further recommendation from Nephrology appreciated. See above a/p (4) Diabetes mellitus: Qualifiers: Diabetes mellitus type: type 2 Diabetes mellitus prison insulin use: without prison use Diabetes mellitus complication status: with kidney complications Diabetes mellitus complication detail: with chronic kidney disease Chronic kidney disease stage: stage 5, not on chronic dialysis Qualified Code(s): E11.22 - Type 2 diabetes mellitus with diabetic chronic kidney disease; N18.5 - Chronic kidney disease, stage 5 Code(s): E11.9 - Type 2 diabetes mellitus without complications Status: Chronic Assessment and Plan: BGL seems well controlled. Accuchecks ACHS, hypoglycemia protocol, correctional insulin, diabetic diet Ozempic on hold given it is NF (5) Obstructive sleep apnea: Code(s): G47.33 - Obstructive sleep apnea (adult) (pediatric) Status: Acute Assessment and Plan: Continue home CPAP (6) Hyperlipidemia: Code(s): E78.5 - Hyperlipidemia, unspecified Status: Acute Assessment and Plan: Continue home statin, zetia, and Vascepa (7) Coronary artery disease: Code(s): I25.10 - Atherosclerotic heart disease of [place] coronary artery without angina pectoris Status: Acute Assessment and Plan: Reports [place] in mid-30s. No acute issues Continue with aspirin and statin Monitor (8) Left foot pain: Code(s): M79.672 - Pain in left foot Status: Acute Assessment and Plan: She thinks she may have injured the foot after stepping on it wrong . She says ice helps at home but tylenol does not help. Xray of foot shows no acute osseous abnormality but shows enthesophytes at dorsal aspect of navicular cuneiform articulation and soft tissue swelling over dorsum of hindfoot; suspect this is possible etiology. Pain has significantly improved overnight Continue ice packs PRN Tylenol PRN for pain as I would like to refrain from NSAIDs given kidney disease (9) Leukocytosis: Code(s): D72.829 - Elevated white blood cell count, unspecified Status: Acute Assessment and Plan: WBC 11.3k today; possibly leukemoid reaction 2/2 n/v? vs infection such as UTI, although patient not endors
[2020-08-20] MEDS: ATORVASTATIN 40 MG TABLET 80 MG PO (13:54)
[2020-08-20] MEDS: amLODIPine BESYLATE 5 MG TABLET PO (13:54)
[2020-08-20] MEDS: ASPIRIN 81 MG CHEWABLE TABLET PO (13:54)
[2020-08-20] MEDS: EZETIMIBE 10 MG TABLET PO (13:55)
[2020-08-20] MEDS: OMEGA 3 POLYUNSAT FATTY ACIDS 1 GM CAP PO (13:55)
[2020-08-20] MEDS: cloNIDine HCL 0.1 MG TABLET 0.3 MG PO ×2 (14:10→17:01)
--- NOTE | 2020-08-20 14:27 | PC.NURSE ---
SARAH HARDING RN IN DIALYSIS WITH PT CALLED AND NOTIFIED ME THAT PATIENT MADE COMMENTS DURING TREATMENT THAT IF THIS IS HOW ITS GOING TO BE EVERY TIME SHE HAS DIALYSIS SHE WAS GOING TO KILL HERSELF. DR PARRA AND OWEN DORANTES PA NOTIFED
--- NOTE | 2020-08-20 15:38 | PC.NURSE ---
This patient, Rayne Gracia, was transferred to ICU on 08/20/20 at 1450. Personal belongings sent with patient. Belongings list checked and signed with receiving . Report given to VICENTE RITTER. Appropriate documentation sent with patient.
[2020-08-20 17:10] LABS: Glucose Point of Care 153 (65-105)
[2020-08-20 21:44] LABS: Glucose Point of Care 219 (65-105)
[2020-08-21] VITALS: BP 112/60; PULSE 66; RESP 16; TEMP 37; O2SAT 95
[2020-08-21] MEDS: ONDANSETRON HCL ODT 4 MG TABLET PO ×2 (00:24→06:47)
[2020-08-21 05:00] LABS: Basophils Absolute Auto 0.1 K/mm3 (0.0-0.1); Basophils Percent Auto 0.7 % (0.2-1.2); Eosinophils Absolute Auto 0.4 K/mm3 (0-0.3); Eosinophils Percent Auto 4.7 % (0-4.4); Hematocrit 30.5 % (37.0-47.0); Hemoglobin 9.3 g/dL (12.0-15.0); Immature Granulocyte Absolute 0.07 K/mm3 (0.00-0.031); Immature Granulocyte Percent A 0.7 % (0-0.5); Lymphocytes Percent Auto 18.1 % (18.3-44.2); Mean Corpuscular HGB Conc 30.5 g/dl (32-36); Mean Platelet Volume 10.1 fl (7.4-10.4); Monocytes Absolute Auto 0.7 K/mm3 (0.1-0.6); Monocytes Percent Auto 7.8 % (2.6-8.5); Neutrophils Absolute Auto 6.4 K/mm3 (1.3-6.7); Nucleated Red Blood Cells Perc 0.4 % (0.0-0.2); Platelet Count Result 216 k/mm3 (150-375); Red Blood Count 3.72 M/mm3 (4.2-5.4); Red Cell Distribution Width 17.7 % (11.5-14.5); White Blood Count 9.4 K/mm3 (4.5-10.0)
[2020-08-21 07:09] LABS: Alkaline Phosphatase 120 U/L (38-126); Anion Gap 13 mmol/L (8-16); Aspartate Amino Transferase 26 U/L (14-36); Bilirubin,Total 0.4 mg/dL (0.2-1.3); Blood Urea Nitrogen 37 mg/dL (7-17); Calcium 8.8 mg/dL (8.4-10.2); Carbon Dioxide 28 mmol/L (22-30); Chloride 96 mmol/L (98-107); Estimated CRCL calculation 14 ml/min; Estimated Glomerular Filt Rate 12; Glucose 137 mg/dL (65-105); Lipase 222 U/L (23-300); Magnesium 2.3 mg/dL (1.6-2.3); Phosphorus 4.8 mg/dL (2.5-4.5); Potassium 4.2 mmol/L (3.4-5.0); Sodium 137 mmol/L (137-145)
[2020-08-21 07:15] LABS: Alanine Aminotransferase < 4 U/L (4-35)
--- NOTE | 2020-08-21 08:25 | PC.NURSE ---
patient to ultra sound with patient sitter.
--- NOTE | 2020-08-21 08:56 | PC.NURSE ---
0845 returned from [employer]
[2020-08-21 08:57] VITALS: BP 147/70; PULSE 80; RESP 18; TEMP 36.8; O2SAT 99
[2020-08-21] MEDS: ASPIRIN 81 MG CHEWABLE TABLET PO (09:49)
[2020-08-21] MEDS: PANTOPRAZOLE 40 MG TABLET PO (09:51)
[2020-08-21] MEDS: amLODIPine BESYLATE 5 MG TABLET PO (09:51)
[2020-08-21] MEDS: OMEGA 3 POLYUNSAT FATTY ACIDS 1 GM CAP PO (09:52)
[2020-08-21] MEDS: EZETIMIBE 10 MG TABLET PO (09:52)
[2020-08-21] MEDS: cloNIDine HCL 0.1 MG TABLET 0.3 MG PO ×2 (09:52→17:43)
[2020-08-21] MEDS: ATORVASTATIN 40 MG TABLET 80 MG PO (09:52)
[2020-08-21 09:59] LABS: Glucose Point of Care 109 (65-105)
[2020-08-21 12:45] LABS: Glucose Point of Care 130 (65-105)
--- NOTE | 2020-08-21 13:37 | PM.IMPN ---
Progress Note: A&P Assessment and Plan (1) End-stage renal disease (ESRD): Code(s): N18.6 - End stage renal disease Status: Chronic Assessment and Plan: The patient was reporting multiple symptoms consistent with worsening uremia and renal function. Nephrology has been consulted and appreciate recommendations. Temporary HD catheter replaced per General Surgery 08/16 after first HD catheter failed the day prior, she had several HD sessions with this. Tunneled HD cathter then placed on 08/[address] Bar Await further recommendations from Nephrology Will hold compazine;continue zofran for n/v Likely discharge once OP HD is set up/confirmed; CC following and still awaiting confirmation. Monitor Trend kidney function, uremia (2) Uncontrolled hypertension: Code(s): I10 - Essential (primary) hypertension Status: Chronic Assessment and Plan: BP elevated earlier in stay likely due to ESRD; suspect improvement with HD. She used to be on an ARB but was d/c given worsening renal function. She had not taken her home clonidine prior to arrival given her N/V. BP 140s sys this morning Continue home clonidine Monitor (3) Uremia: Code(s): N19 - Unspecified kidney failure Status: Acute Assessment and Plan: Likely secondary to #1. Suspect improvement with HD. Further recommendation from Nephrology appreciated. See above a/p (4) Diabetes mellitus: Qualifiers: Diabetes mellitus type: type 2 Diabetes mellitus moth exterminator insulin use: without intermediate use Diabetes mellitus complication status: with kidney complications Diabetes mellitus complication detail: with chronic kidney disease Chronic kidney disease stage: stage 5, not on chronic dialysis Qualified Code(s): E11.22 - Type 2 diabetes mellitus with diabetic chronic kidney disease; N18.5 - Chronic kidney disease, stage 5 Code(s): E11.9 - Type 2 diabetes mellitus without complications Status: Chronic Assessment and Plan: BGL seems well controlled. Accuchecks ACHS, hypoglycemia protocol, correctional insulin, diabetic diet Ozempic on hold given it is NF (5) Obstructive sleep apnea: Code(s): G47.33 - Obstructive sleep apnea (adult) (pediatric) Status: Acute Assessment and Plan: Continue home CPAP (6) Hyperlipidemia: Code(s): E78.5 - Hyperlipidemia, unspecified Status: Acute Assessment and Plan: Continue home statin, zetia, and Vascepa (7) Coronary artery disease: Code(s): I25.10 - Atherosclerotic heart disease of [place] coronary artery without angina pectoris Status: Acute Assessment and Plan: Reports [place] in mid-30s. No acute issues Continue with aspirin and statin Monitor (8) Left foot pain: Code(s): M79.672 - Pain in left foot Status: Acute Assessment and Plan: She thinks she may have injured the foot after stepping on it wrong . She says ice helps at home but tylenol does not help. Xray of foot shows no acute osseous abnormality but shows enthesophytes at dorsal aspect of navicular cuneiform articulation and soft tissue swelling over dorsum of hindfoot; suspect this is possible etiology. Pain reasonable again today Continue ice packs PRN Tylenol PRN for pain as I would like to refrain from NSAIDs given kidney disease (9) Leukocytosis: Code(s): D72.829 - Elevated white blood cell count, unspecified Status: Acute Assessment and Plan: WBC 9.4k today; possibly leukemoid reaction 2/2 n/v? vs infection such as UTI, although patient not endorsing any symptoms. Not producing urine. Occasional vague abdominal
--- NOTE | 2020-08-21 15:10 | P.PNNP_ITS ---
Progress Note: A&P Assessment and Plan (1) End-stage renal disease (ESRD): Code(s): N18.6 - End stage renal disease Status: Chronic Assessment and Plan: * progressive decline in kidney function per patient * referred for vascular access (AVF/AVG) by primary senior buyer (Dr. Anthony Segura) - to be done by Dr. Gong at [facility] in 2 weeks * the patient is getting set up for dialysis a [place]. Case workers are working through the red [employer]. * The patient's nausea is better. (2) Uremia: Code(s): N19 - Unspecified kidney failure Status: Acute Assessment and Plan: * Gradually improving. * The patient has had nausea. I suspect that this is probably at least partly uremic. * We look for other causes for nausea.COLD ROLLING SUPERVISOR Feliz Has ordered a right upper quadrant ultrasound which was negative. Obstructive series was negative. We put her on Protonix and also scheduled ondansetron for 4 doses in the nausea is better. * Will try ondansetron before treatments and see if this helps prevent the nausea. (3) Uncontrolled hypertension: Code(s): I10 - Essential (primary) hypertension Status: Chronic Assessment and Plan: * Blood pressure Is better. (4) Anemia: Code(s): D64.9 - Anemia, unspecified Status: Chronic Assessment and Plan: * likely due to ESRD * anemia studies with iron deficiency * Epogen with HD * IV venofer with HD * Hemoglobin is Up and down between 9 and 10.3. (5) Metabolic acidosis: Code(s): E87.2 - Acidosis Status: Chronic Assessment and Plan: * Today's bicarbonate Twenty-five * On no bicarbonate supplements. (6) Renal osteodystrophy: Code(s): N25.0 - Renal osteodystrophy Status: Chronic Assessment and Plan: * Phosphorus level is okay. * PTH is in range. (7) Diabetes mellitus: Qualifiers: Diabetes mellitus type: type 2 Diabetes mellitus termite control service representative insulin use: without half-way use Diabetes mellitus complication status: with kidney complications Diabetes mellitus complication detail: with chronic kidney disease Chronic kidney disease stage: stage 5, not on chronic dialysis Qu alified Code(s): E11.22 - Type 2 diabetes mellitus with diabetic chronic kidney disease; N18.5 - Chronic kidney disease, stage 5 Code(s): E11.9 - Type 2 diabetes mellitus without complications Status: Chronic Assessment and Plan: * follow accuchecks * on SSI Subjective Date/time seen: 08/21/20 15:10 Interval history: Patient is Feeling better. No more nausea. Spirits are better. Review of Systems Cardiovascular: Cardiovascular: Reports no additional cardiovascular complaints Respiratory: Respiratory: Reports no additional respiratory complaints Gastrointestinal: Gastrointestinal: Reports no additional gastrointestinal complaints Genitourinary: Genitourinary: Reports no additional female genitourinary complaints Exam Narrative: Exam Narrative: General: thin AA female in NAD Heart: normal S1 and S2; no rub or gallop Lungs: clear bilaterally Abdomen: soft, nontender, nondistended, positive bowel sounds Extremities: no edema Skin: no rash Or subcu nodules Objective Data Vital Signs Vital Signs: Vital Signs - 24 hr 08/20/20 20:00 08/21/20 00:00 08/21/20 08:57
--- NOTE | 2020-08-21 15:10 | PM.PNNEP ---
Progress Note: A&P Assessment and Plan (1) End-stage renal disease (ESRD): Code(s): N18.6 - End stage renal disease Status: Chronic Assessment and Plan: progressive decline in kidney function per patient referred for vascular access (AVF/AVG) by primary parts cleaner (Dr. Anthony Segura) - to be done by Dr. Gong at [facility] in 2 weeks the patient is getting set up for dialysis a [place]. Case workers are working through the red tape. The patient's nausea is better. (2) Uremia: Code(s): N19 - Unspecified kidney failure Status: Acute Assessment and Plan: Gradually improving. The patient has had nausea. I suspect that this is probably at least partly uremic. We look for other causes for nausea.INTELLIGENCE OFFICER Feliz Has ordered a right upper quadrant ultrasound which was negative. Obstructive series was negative. We put her on Protonix and also scheduled ondansetron for 4 doses in the nausea is better. Will try ondansetron before treatments and see if this helps prevent the nausea. (3) Uncontrolled hypertension: Code(s): I10 - Essential (primary) hypertension Status: Chronic Assessment and Plan: Blood pressure Is better. (4) Anemia: Code(s): D64.9 - Anemia, unspecified Status: Chronic Assessment and Plan: likely due to ESRD anemia studies with iron deficiency Epogen with HD IV venofer with HD Hemoglobin is Up and down between 9 and 10.3. (5) Metabolic acidosis: Code(s): E87.2 - Acidosis Status: Chronic Assessment and Plan: Today's bicarbonate Twenty-five On no bicarbonate supplements. (6) Renal osteodystrophy: Code(s): N25.0 - Renal osteodystrophy Status: Chronic Assessment and Plan: Phosphorus level is okay. PTH is in range. (7) Diabetes mellitus: Qualifiers: Diabetes mellitus type: type 2 Diabetes mellitus terminologist insulin use: without terminologist use Diabetes mellitus complication status: with kidney complications Diabetes mellitus complication detail: with chronic kidney disease Chronic kidney disease stage: stage 5, not on chronic dialysis Qualified Code(s): E11.22 - Type 2 diabetes mellitus with diabetic chronic kidney disease; N18.5 - Chronic kidney disease, stage 5 Code(s): E11.9 - Type 2 diabetes mellitus without complications Status: Chronic Assessment and Plan: follow accuchecks on SSI Subjective Date/time seen: 08/21/20 15:10 Interval history: Patient is Feeling better. No more nausea. Spirits are better. Review of Systems Cardiovascular: Cardiovascular: Reports no additional cardiovascular complaints Respiratory: Respiratory: Reports no additional respiratory complaints Gastrointestinal: Gastrointestinal: Reports no additional gastrointestinal complaints Genitourinary: Genitourinary: Reports no additional female genitourinary complaints Exam Narrative: Exam Narrative: General: thin AA female in NAD Heart: normal S1 and S2; no rub or gallop Lungs: clear bilaterally Abdomen: soft, nontender, nondistended, positive bowel sounds Extremities: no edema Skin: no rash Or subcu nodules Objective Data Vital Signs Vital Signs: Vital Signs - 24 hr 08/20/20 20:00 08/21/20 00:00 08/21/20 08:57 Temperature 36.9 C 37.0 C 36.8 C Pulse Rate 74 66 80 Respiratory Rate 20 16 18 Blood Pressure 106/62 112/60 147/70 H Pulse Oximetry 95 95 99 Intake/Output Intake/Output: Intake & Output 08/18/20 08/19/20 08/20/20 08/21/20 23:59 23:59 23:59 23:59 Intake Total 490 710 420 125 Output Total 10 1300 0 Balance 490 700 -880 125 Meds/Results Medications: Active Medications Generic Name Dose Route Start Last Admin Trade Name Freq PRN Reason Stop Dose Admin Acetaminophen 650 mg 08/15/20 13:43 08/19/20 15:17 Tylenol Tablet PO 650 mg Q6H PRN Administrati
--- NOTE | 2020-08-21 15:54 | PM.DS ---
DS: Admitting Diagnosis Admitting Diagnosis Admitting Diagnosis: Uremia, ESRD DS: Discharge Diagnosis Discharge Diagnosis (1) End-stage renal disease (ESRD): Code(s): N18.6 - End stage renal disease Status: Chronic Assessment and Plan: The patient was reporting multiple symptoms consistent with worsening uremia and renal function. Nephrology has been consulted and appreciate recommendations. Temporary HD catheter replaced per General Surgery 08/16 after first HD catheter failed the day prior, she had several HD sessions with this. Tunneled HD catheter then placed on 08/[address] Bar F/u with her flower grower as an outpatient Will hold compazine;continue zofran for n/v Likely discharge today as OP HD has been set up/confirmed per CC; CC following. Trend kidney function, uremia (2) Uncontrolled hypertension: Code(s): I10 - Essential (primary) hypertension Status: Chronic Assessment and Plan: BP elevated earlier in stay likely due to ESRD; suspect improvement with HD. She used to be on an ARB but was d/c given worsening renal function. She had not taken her home clonidine prior to arrival given her N/V. BP 140s sys this morning Continue home clonidine f/u with PCP (3) Uremia: Code(s): N19 - Unspecified kidney failure Status: Acute Assessment and Plan: Likely secondary to #1. Suspect improvement with HD. Further recommendation from Nephrology appreciated. See above a/p (4) Diabetes mellitus: Qualifiers: Chronic kidney disease stage: stage 5, not on chronic dialysis Diabetes mellitus complication detail: with chronic kidney disease Diabetes mellitus complication status: with kidney complications Diabetes mellitus fpc insulin use: without pipe turner use Diabetes mellitus type: type 2 Qualified Code(s): E11.22 - Type 2 diabetes mellitus with diabetic chronic kidney disease; N18.5 - Chronic kidney disease, stage 5 Code(s): E11.9 - Type 2 diabetes mellitus without complications Status: Chronic Assessment and Plan: BGL seems well controlled. Accuchecks ACHS, hypoglycemia protocol, correctional insulin, diabetic diet during stay Ozempic on hold given it is NF; continue at discharge (5) Obstructive sleep apnea: Code(s): G47.33 - Obstructive sleep apnea (adult) (pediatric) Status: Acute Assessment and Plan: Continue home CPAP (6) Hyperlipidemia: Code(s): E78.5 - Hyperlipidemia, unspecified Status: Acute Assessment and Plan: Continue home statin, zetia, and Vascepa (7) Coronary artery disease: Code(s): I25.10 - Atherosclerotic heart disease of [place] coronary artery without angina pectoris Status: Acute Assessment and Plan: Reports [place] in mid-30s. No acute issues Continue with aspirin and statin Monitor (8) Left foot pain: Code(s): M79.672 - Pain in left foot Status: Acute Assessment and Plan: She thinks she may have injured the foot after stepping on it wrong . She says ice helps at home but tylenol does not help. Xray of foot shows no acute osseous abnormality but shows enthesophytes at dorsal aspect of navicular cuneiform articulation and soft tissue swelling over dorsum of hindfoot; suspect this is possible etiology. Pain reasonable again today Continue ice packs PRN Tylenol PRN for pain as I would like to refrain from NSAIDs given kidney disease (9) Leukocytosis: Code(s): D72.829 - Elevated white blood cell count, unspecified Status: Acute Assessment and Plan: WBC 9.4k today; possibly leukemoid reaction 2/2 n/v? vs infection such
[2020-08-21 16:00] VITALS: BP 117/65; TEMP 36.6
--- NOTE | 2020-08-21 16:21 | PC.NURSE ---
0800 If I was going to kill myself I would not have told anyone. I would have just went home. I was just surprised and didn't know what to expect with dialysis and I just didn't feel good.
[2020-08-21 17:45] LABS: Glucose Point of Care 131 (65-105)
== END 2020-08-21 18:30 | disposition home or self-care (01) | DRG 673 ==
LOC: ANHED 23:32 → ANH2MED 08-15 01:24 → ANHICU 08-21 15:47 → ANH2MED 08-24 17:50 → ANHICU 08-24 17:50
PROVIDERS: Internal Medicine Nephrology; Surgery; Admitting Provider Internal Medicine; Emergency Provider General Practice; PCP Internal Medicine Infectious Disease; Visit Provider Physician Assistant
PROC: 0JH63XZ Insertion of Tunneled Vascular Access Device into Chest Subcutaneous Tissue and Fascia, Percutaneous Approach (ICD-10-PCS; CPT 36908; principal; 2020-08-19 10:00)
DX: I12.0 Hypertensive chronic kidney disease with stage 5 chronic kidney disease or end stage renal disease (principal); N18.6 End stage renal disease; R45.851 Suicidal ideations; I69.351 Hemiplegia and hemiparesis following cerebral infarction affecting right dominant side; E87.2 Acidosis; R64 Cachexia; T82.898A Other specified complication of vascular prosthetic devices, implants and grafts, initial encounter; E11.22 Type 2 diabetes mellitus with diabetic chronic kidney disease; G47.33 Obstructive sleep apnea (adult) (pediatric); E78.5 Hyperlipidemia, unspecified; I25.10 Atherosclerotic heart disease of native coronary artery without angina pectoris; J44.9 Chronic obstructive pulmonary disease, unspecified; M79.672 Pain in left foot; D72.829 Elevated white blood cell count, unspecified; F17.210 Nicotine dependence, cigarettes, uncomplicated; E11.319 Type 2 diabetes mellitus with unspecified diabetic retinopathy without macular edema; E11.29 Type 2 diabetes mellitus with other diabetic kidney complication; N19 Unspecified kidney failure; N25.0 Renal osteodystrophy; D63.1 Anemia in chronic kidney disease; Z99.2 Dependence on renal dialysis; I25.2 Old myocardial infarction; Z90.710 Acquired absence of both cervix and uterus; D50.9 Iron deficiency anemia, unspecified; Z68.31 Body mass index [BMI] 31.0-31.9, adult
CPT/HCPCS: 36415; 71046; 73630; 74018; 76705; 76775; 77001; 80048; 80053; 80069; 80074; 80076; 81001; 82306; 82728; 82948; 83540; 83550; 83605; 83690; 83735; 83970; 85025; 85027; 86706; 86850; 86900; 86901; 93005; 96374; 99285; C1752; A9270; C1750; G0257; G0378; G0379; J0690; J1642; J1644; J1756; J2370; J2405; J2704; J3010; J7030; J7040; Q5106

== ENCOUNTER 2022-07-08 13:50 | Inpatient (IN) | payer MEDICARE, MEDICAID, SELFPAY ==
[2022-07-08] VITALS (13 sets, daily range): BP systolic 92–136; BP diastolic 50–75; PULSE 50–117; RESP 16–20; TEMP 36.9; O2SAT 96–100; BMI 20.5
--- NOTE | ~2022-07-08 | CT_ITS ---
EXAMINATION: CT abdomen pelvis wo con DATE: 07/08/2022 16:05 INDICATION: Lower abdominal pain TECHNIQUE: Computed tomography (CT) of the abdomen and pelvis was performed without intravenous contr ast. Automated exposure control and iterative reconstruction technique were employed. The dose-length product was 204.15 mGy-cm. COMPARISON: None FINDINGS: Small focus of air trapping versus mild emphysematous changes in the right lower lobe. Mild streaky b ibasilar atelectasis. Heart size is normal. Atherosclerotic coronary artery calcific lesions and like ly coronary artery stenting. Aortic valve calcification. No pericardial or pleural effusion. There is high attenuation material suggesting vicariously excreted contrast within the otherwise normal-appea ring gallbladder with no evident wall thickening or pericholecystic inflammatory stranding. Liver, sp carlita, pancreas, left adrenal gland and left kidney are normal. 2.5 cm cyst at the upper pole of the r ight kidney. 1.9 cm low-attenuation right adrenal adenoma. Right lower quadrant peritoneal dialysis c atheter which is coiled at the right paracolic gutter. Small to moderate amount of free intraperitone al fluid in the abdomen and pelvis likely related to peritoneal dialysis. Bowels are normal including a normal appendix. Decompressed bladder is normal. The uterus is not identified and has likely been surgically resected. No abscess or free intraperitoneal gas. No pathologically enlarged abdominal or pelvic lymphadenopathy. There is calcified atherosclerosis of the aorta and several of the other anibal falguni. Mild likely physiologic anterior wedging at T12. Moderate lumbar facet osteoarthritis. IMPRESSION: 1. Small to moderate amount of free intraperitoneal fluid in the abdomen and pelvis likely related to peritoneal dialysis with right lower quadrant peritoneal dialysis catheter. Reviewed, dictated and finalized at location A. IMPRESSION: 1. Small to moderate amount of free intraperitoneal fluid in the abdomen and pe lvis likely related to peritoneal dialysis with right lower quadrant peritoneal dialysis catheter.
[2022-07-08] MEDS: SODIUM CHLORIDE 0.9% IV 1,000 ML 500 ML IV CONT ×2 (15:43→22:35)
--- NOTE | 2022-07-08 15:47 | ED.GENADULT ---
HPI - General Adult General Chief complaint: Nausea/Vomiting/Diarrhea Stated complaint: im sick diarrhea Time Seen by Provider: 07/08/22 14:59 History of Present Illness HPI narrative: 61-year-old female that gets peritoneal dialysis nightly presents to the emergency department for complaint of diarrhea and abdominal cramping. Patient states last week she started developing diarrhea and it is lasted approximately 1 week. Patient initially stated she was concerned that her dialysis rash was not working or that the dialysis fluid did not drain. Patient denies any associate abdominal pain. Related Data Home Medications Medication Instructions Recorded Confirmed aspirin 81 mg chewable tablet 81 mg PO DAILY 08/14/20 08/15/20 atorvastatin 40 mg tablet 80 mg PO DAILY 08/14/20 08/15/20 clonidine HCl 0.3 mg tablet 0.3 mg PO BID 08/14/20 08/15/20 ezetimibe 10 mg tablet 10 mg PO DAILY 08/14/20 08/15/20 icosapent ethyl 1 gram capsule 1 g PO DAILY 08/14/20 08/15/20 (Vascepa) semaglutide 0.25 mg or 0.5 mg (2 0.5 mg subcut WEEKLY 08/15/20 08/15/20 mg/1.5 mL) subcutaneous pen injector (Ozempic) Allergies Allergy/AdvReac Type Severity Reaction Status Date / Time codeine Allergy Hives Verified 07/08/22 17:48 rivaroxaban [From Xarelto] Allergy Hives Verified 07/08/22 17:48 Review of Systems Review of Systems: CONSTITUTIONAL: Denies fever, chills, or sweats. EYES: Denies visual changes, redness, or discharge. ENT: Denies rhinorrhea, congestion, sore throat, or otalgia. CARDIOVASCULAR: Denies chest pain, palpitations, or edema. RESPIRATORY: Denies cough or dyspnea. GASTROINTESTINAL: See HPI GENITOURINARY: Denies dysuria or hematuria. SKIN: Denies rash or itching. MUSCULOSKELETAL: Denies back pain, joint pain, or myalgia. NEUROLOGIC: Denies headache, numbness, or weakness. [facility] Past Medical History Medical History (Updated 07/08/22 @ 23:03 by Andrew Monroy MD) Anemia Anxiety and depression COPD (chronic obstructive pulmonary disease) Coronary artery disease Patient reports she had an MA at age 36 in age 38 CVA (cerebral vascular accident) With residual right-sided weakness Diabetes mellitus Diabetic retinopathy End-stage renal disease (ESRD) Patient is scheduled to have an AV fistula placed 08/24/2020 Hyperlipidemia Hypertension Leukocytosis Metabolic acidosis Obstructive sleep apnea With CPAP use with a pressure of 9 Renal osteodystrophy Uncontrolled hypertension Uremia Surgical History Surgical History History of left-sided carotid endarterectomy 2004 History of total hysterectomy with bilateral salpingo-oophorectomy (BSO) Due to uterine fibroid and menorrhagia Family History Family History Mother Acute myocardial infarction Multiple myeloma Diabetes mellitus Sibling Liver cancer Brother age 51 Social History Social History Smoking packs per day: 0.5 Smoking cigarettes per day: 10.0 Years smoked: 43 Smoking pack-years: 21.50 Smoking status: Current every day smoker Tobacco type: cigarettes Additional smoking assessment comments: started smoking around age 16 Alcohol intake: former Alcohol use details: She is a recovering alcoholic. She used to drink a pt of Nelly had day but quit drinking 11 years ago when she had to raise her infant granddaughter while her daughter was in long term. Substance use: current Substance use type: marijuana Other substance usage details: Twice weekly Additional living arrangements comments: She lives at home with her mother has multiple myeloma and her brother who is suffering from liver cancer. Gender identity (if verbalized by the patient): Female Spiritual care concerns: No Exam Narrative: APPEARANCE: Well appearing, no pain, no distress, well-nourished. HE
[2022-07-08 15:58] LABS: Basophils Absolute Auto 0.1 K/mm3 (0.0-0.1); Basophils Percent Auto 0.5 % (0.2-1.2); Eosinophils Percent Auto 0.1 % (0-4.4); Hematocrit 48.9 % (37.0-47.0); Hemoglobin 15.2 g/dL (12.0-15.0); Immature Granulocyte Absolute 0.14 K/mm3 (0.00-0.031); Lymphocytes Absolute Auto 0.52 K/mm3 (0.9-3.2); Lymphocytes Percent Auto 3.9 % (18.3-44.2); Mean Corpuscular HGB Conc 31.1 g/dl (32-36); Mean Corpuscular Hemoglobin 28.4 pg (26-34); Mean Corpuscular Volume 91.2 fl (80-100); Mean Platelet Volume 9.9 fl (7.4-10.4); Monocytes Absolute Auto 0.6 K/mm3 (0.1-0.6); Monocytes Percent Auto 4.2 % (2.6-8.5); Neutrophils Absolute Auto 12.1 K/mm3 (1.3-6.7); Neutrophils Percent Auto 90.3 % (45.5-73.1); Nucleated Red Blood Cells Absolute Auto 0.3 K/mm3 (0.0-0.012); Nucleated Red Blood Cells Perc 1.9 % (0.0-0.2); Platelet Count Result 378 k/mm3 (150-375); Red Blood Count 5.36 M/mm3 (4.2-5.4); Red Cell Distribution Width 19.7 % (11.5-14.5); White Blood Count 13.4 K/mm3 (4.5-10.0)
[2022-07-08 16:19] LABS: Alanine Aminotransferase 46 U/L (6-35); Albumin Level 5.2 g/dL (3.5-5.1); Alkaline Phosphatase 287 U/L (38-126); Anion Gap 33 mmol/L (8-16); Aspartate Amino Transferase 40 U/L (14-36); Bilirubin,Total 0.7 mg/dL (0.2-1.3); Blood Urea Nitrogen 54 mg/dL (7-17); Calcium 9.9 mg/dL (8.4-10.2); Carbon Dioxide 18 mmol/L (22-30); Chloride 88 mmol/L (98-107); Estimated CRCL calculation 3 ml/min; Estimated Glomerular Filt Rate 3; Glucose 289 mg/dL (65-110); Lipase 402 U/L (23-300); Potassium 3.5 mmol/L (3.4-5.0); Sodium 139 mmol/L (137-145)
--- NOTE | 2022-07-08 21:48 | PCHDNOTE ---
This RN performed CAPD- Manual drain at bedside. Transfer Set Exchange performed. Approximately 300cc clear light yellow effluent drained without difficulty. Disconnect cap applied.
--- NOTE | 2022-07-08 22:52 | ADMGEN ---
This patient, Rayne Gracia, was admitted to [facility] Surg Room 321-02. Patient/family oriented to hospital policies and general routines including ID bracelet, bed and alarms, visiting hours, pain management, procedures, bathroom and other care routines, personal items, smoking policy, room service/diet, and visiting hours. Information on how to activate the Rapid Response Team has been discussed. Patient/Family are encouraged to report perceived risks to care and to ask questions if they do not understand what they are told or what they should do.
[2022-07-09] VITALS (11 sets, daily range): BP systolic 95–134; BP diastolic 51–73; PULSE 89–105; RESP 19–20; TEMP 35.9–36.9; O2SAT 96–100
[2022-07-09] MEDS: SODIUM CHLORIDE 0.9% IV 1,000 ML 50 ML IV CONT (12:30)
[2022-07-09 12:39] LABS: Basophils Percent Auto 0.2 % (0.2-1.2); Eosinophils Absolute Auto 0.1 K/mm3 (0-0.3); Eosinophils Percent Auto 0.4 % (0-4.4); Hematocrit 40.7 % (37.0-47.0); Hemoglobin 12.6 g/dL (12.0-15.0); Immature Granulocyte Absolute 0.06 K/mm3 (0.00-0.031); Immature Granulocyte Percent A 0.4 % (0-0.5); Lymphocytes Absolute Auto 0.84 K/mm3 (0.9-3.2); Lymphocytes Percent Auto 6.1 % (18.3-44.2); Mean Corpuscular Hemoglobin 28.3 pg (26-34); Mean Corpuscular Volume 91.5 fl (80-100); Mean Platelet Volume 9.4 fl (7.4-10.4); Monocytes Absolute Auto 1.3 K/mm3 (0.1-0.6); Monocytes Percent Auto 9.2 % (2.6-8.5); Neutrophils Absolute Auto 11.4 K/mm3 (1.3-6.7); Neutrophils Percent Auto 83.7 % (45.5-73.1); Nucleated Red Blood Cells Absolute Auto 0.1 K/mm3 (0.0-0.012); Platelet Count Result 291 k/mm3 (150-375); Red Blood Count 4.45 M/mm3 (4.2-5.4); Red Cell Distribution Width 18.9 % (11.5-14.5); White Blood Count 13.7 K/mm3 (4.5-10.0)
[2022-07-09 12:50] LABS: Hemoglobin A1C 6.7 % (<5.7)
--- NOTE | 2022-07-09 12:55 | PM.CNNEP ---
Assessment and Plan Assessment and plan (1) End-stage renal disease (ESRD): Code(s): N18.6 - End stage renal disease Status: Chronic Assessment and Plan: resume CCPD tonight follow with Dr. Segura at [facility] follow electrolytes, volume status, and clearace may need new PD cycler at home given history will see how treatments go here.... (2) Diarrhea: Code(s): R19.7 - Diarrhea, unspecified Status: Acute Assessment and Plan: infectious versus metabolic? stool cultures sent follow stool output may need some gentle IVF hydration (3) Hypertension: Code(s): I10 - Essential (primary) hypertension Status: Chronic Assessment and Plan: reasonable control apparently not taking any medications for this follow trend of hemodynamics (4) Anemia: Code(s): D64.9 - Anemia, unspecified Status: Chronic Assessment and Plan: stable for ESRD follow trend of H/H start Epogen once Hgb goes below 10 (5) Diabetes mellitus: Qualifiers: Diabetes mellitus type: type 2 Diabetes mellitus usp insulin use: without usp use Diabetes mellitus complication status: with kidney complications Diabetes mellitus complication detail: with chronic kidney disease Chronic kidney disease stage: stage 5, not on chronic dialysis Qualified Code(s): E11.22 - Type 2 diabetes mellitus with diabetic chronic kidney disease; N18.5 - Chronic kidney disease, stage 5 Code(s): E11.9 - Type 2 diabetes mellitus without complications Status: Chronic Assessment and Plan: not currently on any medications follow accuchecks glycemic control Will continue to follow. History of Present Illness Reason for Consult Consult date: 07/09/22 Reason for consult: end stage renal disease Chief Complaint Chief complaint: dehydration History of Present Illness Narrative: The patient is a 61-year-old female with a past medical history as outlined below who presented to [facility] Emergency room due to complaints of diarrhea and abdominal cramping. The patient reports the symptoms have been present for the last week but seemed to have acutely worsened in the last 24-48 hours. I am not clear if the patient did any type of conservative therapy with regard to the symptoms but given the persistent nature of them, she presented to the ER for further evaluation. Workup and evaluation in the emergency room demonstrated labs consistent with her known history of end-stage renal disease. She had no critical electrolyte abnormalities and although her BUN and creatinine was elevated, this is likely more consistent with the fact that she is on peritoneal dialysis. On further questioning, the patient reported that she was having some difficulties with her peritoneal dialysis treatments. Apparently, her PD cycler, would not fully drain her fluid based on my discussion with her. It would but appear that she did not try to trouble shoot this problem with her peritoneal dialysis nurse or the a for mentioned symptoms led to her presentation here to the emergency room prior to any further intervention. Given her constellation of symptoms and the concern that her peritoneal cyanosis treatments were not working at home, she was admitted the hospital for further evaluation and therapy Renal consultation was requested due to her end-stage renal disease. The patient normally does peritoneal dialysis treatments at home under the care of Dr. Anthoyn Luque through [facility]. As far as I am aware, her perineal dialysis treatments had been going fairly well up until the issues with her diarrhea and the recent PD cycler problems. She has been on peritoneal dialysis for about three months. Currently, at the time my visit, she appears to be in no acute distress. Review of Systems Review of Systems: As per HPI. [facility] Past Medical History
[2022-07-09 13:06] LABS: Alanine Aminotransferase 20 U/L (6-35); Alkaline Phosphatase 187 U/L (38-126); Anion Gap 27 mmol/L (8-16); Aspartate Amino Transferase 28 U/L (14-36); Bilirubin,Total 0.4 mg/dL (0.2-1.3); Blood Urea Nitrogen 71 mg/dL (7-17); Calcium 8.4 mg/dL (8.4-10.2); Carbon Dioxide 16 mmol/L (22-30); Chloride 97 mmol/L (98-107); Glucose 210 mg/dL (65-110); Potassium 3.5 mmol/L (3.4-5.0); Sodium 140 mmol/L (137-145)
[2022-07-09 13:22] LABS: Anisocytosis 2+ (NORMAL); Ovalocytes 1+ (NORMAL); Platelet Estimate Adequate (Adequate)
[2022-07-09 13:33] LABS: Estimated CRCL calculation 3 ml/min; Estimated Glomerular Filt Rate 3
--- NOTE | 2022-07-09 15:53 | PM.IMPN ---
Progress Note: A&P Assessment and Plan (1) Diarrhea: Code(s): R19.7 - Diarrhea, unspecified Status: Acute Assessment and Plan: Infectious versus metabolic secondary to suspected dialysis malfunction with uremia. Will send off stool culture, start Zosyn. Light hydration with normal saline 50 cc/HR. Uremia management as below (2) End-stage renal disease (ESRD): Code(s): N18.6 - End stage renal disease Status: Chronic Assessment and Plan: Nephrology consulted. Patient to be dialyzed tonight. Continue Nephrocaps. Patient unsure if she is on phos binder, will continue to monitor. (3) Diabetes mellitus: Qualifiers: Diabetes mellitus type: type 2 Diabetes mellitus custodial insulin use: without custodial use Diabetes mellitus complication status: with kidney complications Diabetes mellitus complication detail: with chronic kidney disease Chronic kidney disease stage: stage 5, not on chronic dialysis Qualified Code(s): E11.22 - Type 2 diabetes mellitus with diabetic chronic kidney disease; N18.5 - Chronic kidney disease, stage 5 Code(s): E11.9 - Type 2 diabetes mellitus without complications Status: Chronic Assessment and Plan: Documented, however patient reports she is not on any medications. Check A1c (4) Obstructive sleep apnea: Code(s): G47.33 - Obstructive sleep apnea (adult) (pediatric) Status: Acute Assessment and Plan: Patient reports she has a CPAP machine, however does not work. Will trial CPAP at night here (5) Coronary artery disease: Code(s): I25.10 - Atherosclerotic heart disease of [place] coronary artery without angina pectoris Status: Acute Assessment and Plan: Patient reports she is status post PCI with stent placement 6 months ago in [place]. Continue aspirin and Plavix. Continue statin and Zetia (6) Hypertension: Code(s): I10 - Essential (primary) hypertension Status: Acute Assessment and Plan: Patient is not on medications, continue to monitor (7) Hypothyroidism: Code(s): E03.9 - Hypothyroidism, unspecified Status: Acute Assessment and Plan: Patient reports she takes Synthroid, unclear of dose. Check TSH Subjective Date/time seen: 07/09/22 15:53 61-year-old female past medical history of depression/anxiety, stroke, ANGIE on CPAP, COPD, CAD status post PCI 12/2021 on Plavix, documented diabetes complicated by retinopathy, ESRD on PD, HLD/HTN. Of note, it appears patient gets most of her care in [place]. Patient presents with 1 week history of liquid diarrhea. She denies eating anything unusual or anything spoiled. Denies blood in her stool. Patient reports she was switched over to peritoneal dialysis 2 months ago and has not noticed any issues with running it. She does state that when she is running peritoneal dialysis she feels abdominal fullness. Patient reports nausea/vomiting episode 1 time in the past week. No other symptoms currently. Review of Systems Review of Systems: Ten point ROS reviewed, negative unless otherwise specified per subjective Exam Const: General: comfortable and no acute distress HENMT: Mouth: Yes dry mucous membranes Eyes: General: appearance normal, both eyes and all related structures Sclera: sclerae normal Pupils: Equal, round and reactive pupils present Neck: Neck: supple and no JVD Resp: Effort & Inspection: normal respiratory effort Auscultation: clear to auscultation bilaterally Cardio: Rate: regular rate Rhythm: regular rhythm Other: No gallop, no murmur GI: GI Palp: Yes Soft to palpation Auscultation: normal bowel sounds Other: Nontender, nondistended. Peritoneal dialysis catheter noted, no tenderness or erythema around the site. Skin: General skin exam: normal color Other: Poor skin turgor Neuro: Speech: normal speech Sensory Exam: normal sensation Extrem: General: normal to inspec
[2022-07-09] MEDS: CLOPIDOGREL BISULFATE 75 MG TABLET PO (16:42)
[2022-07-09] MEDS: ATORVASTATIN 40 MG TABLET 80 MG PO (16:43)
[2022-07-09 17:27] LABS: Hepatitis B Surface Antigen Negative (Negative)
[2022-07-09 17:47] LABS: Hepatitis B Surface Anti Res Positive
[2022-07-09] MEDS: HEPARIN SODIUM 5,000 UNITS/ML VIAL 5000 UNITS SUB-Q (20:53)
[2022-07-09] MEDS: EZETIMIBE 10 MG TABLET PO (20:53)
[2022-07-10] VITALS (10 sets, daily range): BP systolic 82–124; BP diastolic 46–59; PULSE 80–101; RESP 16–20; TEMP 36.6–37.5; O2SAT 94–100
[2022-07-10] MEDS: SODIUM CHLORIDE 0.9% IV 1,000 ML 50 ML IV CONT (05:25)
[2022-07-10 05:59] LABS: Basophils Percent Auto 0.2 % (0.2-1.2); Eosinophils Absolute Auto 0.2 K/mm3 (0-0.3); Eosinophils Percent Auto 1.6 % (0-4.4); Hematocrit 34.3 % (37.0-47.0); Hemoglobin 10.8 g/dL (12.0-15.0); Immature Granulocyte Absolute 0.19 K/mm3 (0.00-0.031); Immature Granulocyte Percent A 1.4 % (0-0.5); Lymphocytes Absolute Auto 0.96 K/mm3 (0.9-3.2); Lymphocytes Percent Auto 7.1 % (18.3-44.2); Mean Corpuscular HGB Conc 31.5 g/dl (32-36); Mean Corpuscular Hemoglobin 28.5 pg (26-34); Mean Corpuscular Volume 90.5 fl (80-100); Mean Platelet Volume 10.5 fl (7.4-10.4); Monocytes Absolute Auto 1.1 K/mm3 (0.1-0.6); Monocytes Percent Auto 8.1 % (2.6-8.5); Neutrophils Percent Auto 81.6 % (45.5-73.1); Nucleated Red Blood Cells Absolute Auto 0.1 K/mm3 (0.0-0.012); Nucleated Red Blood Cells Perc 0.5 % (0.0-0.2); Platelet Count Result 266 k/mm3 (150-375); Red Blood Count 3.79 M/mm3 (4.2-5.4); Red Cell Distribution Width 18.5 % (11.5-14.5); White Blood Count 13.5 K/mm3 (4.5-10.0)
[2022-07-10 06:53] LABS: Alanine Aminotransferase 15 U/L (6-35); Albumin Level 3.1 g/dL (3.5-5.1); Alkaline Phosphatase 151 U/L (38-126); Anion Gap 23 mmol/L (8-16); Aspartate Amino Transferase 20 U/L (14-36); Bilirubin,Total 0.4 mg/dL (0.2-1.3); Blood Urea Nitrogen 62 mg/dL (7-17); Calcium 8.1 mg/dL (8.4-10.2); Carbon Dioxide 17 mmol/L (22-30); Chloride 97 mmol/L (98-107); Estimated CRCL calculation 3 ml/min; Estimated Glomerular Filt Rate 4; Glucose 156 mg/dL (65-110); Phosphorus 6.2 mg/dL (2.5-4.5); Potassium 2.7 mmol/L (3.4-5.0); Sodium 137 mmol/L (137-145)
[2022-07-10 06:57] LABS: Platelet Estimate Adequate (Adequate)
[2022-07-10 06:58] LABS: Anisocytosis 2+ (NORMAL); Ovalocytes 1+ (NORMAL); Poikilocytosis 1+ (NORMAL)
[2022-07-10] MEDS: POTASSIUM CHLORIDE 20 MEQ TABLET 40 MEQ PO ×2 (07:29→13:49)
[2022-07-10 08:19] LABS: Thyroid Stimulating Hormone 0.308 uIU/mL (0.465-4.680)
[2022-07-10] MEDS: ASPIRIN 81 MG CHEWABLE TABLET PO (09:00)
[2022-07-10] MEDS: HEPARIN SODIUM 5,000 UNITS/ML VIAL 5000 UNITS SUB-Q ×2 (09:01→20:19)
[2022-07-10] MEDS: VITAMIN B CMPLX/VIT C/FOLIC AC 1 CAPSULE 1 CAP PO (09:01)
[2022-07-10] MEDS: CLOPIDOGREL BISULFATE 75 MG TABLET PO (09:01)
[2022-07-10] MEDS: NICOTINE (*PBKC) 14 MG PATCH 1 PATCH TRANSDERM (11:55)
--- NOTE | 2022-07-10 12:24 | PM.IMPN ---
Progress Note: A&P Assessment and Plan (1) Diarrhea: Code(s): R19.7 - Diarrhea, unspecified Status: Acute Assessment and Plan: Infectious versus metabolic secondary to suspected dialysis malfunction with uremia. Will send off stool culture, start Zosyn. Light hydration with normal saline 50 cc/HR. Uremia management as below 07/10/2028 interval history: 61-year-old female with end-stage renal disease on peritoneal dialysis daily presented with diarrhea suspect infectious patient being treated with Zosyn and so far stool culture no growth, patient states her diarrhea have improved and is hungry wants advanced the diet, will start renal diet, patient with hypokalemia most likely secondary to diarrhea will monitor and supplement. (2) End-stage renal disease (ESRD): Code(s): N18.6 - End stage renal disease Status: Chronic Assessment and Plan: Nephrology consulted. Patient to be dialyzed tonight. Continue Nephrocaps. Patient unsure if she is on phos binder, will continue to monitor. (3) Diabetes mellitus: Qualifiers: Diabetes mellitus type: type 2 Diabetes mellitus [facility] insulin use: without [facility] use Diabetes mellitus complication status: with kidney complications Diabetes mellitus complication detail: with chronic kidney disease Chronic kidney disease stage: stage 5, not on chronic dialysis Qualified Code(s): E11.22 - Type 2 diabetes mellitus with diabetic chronic kidney disease; N18.5 - Chronic kidney disease, stage 5 Code(s): E11.9 - Type 2 diabetes mellitus without complications Status: Chronic Assessment and Plan: Documented, however patient reports she is not on any medications. Check A1c (4) Obstructive sleep apnea: Code(s): G47.33 - Obstructive sleep apnea (adult) (pediatric) Status: Acute Assessment and Plan: Patient reports she has a CPAP machine, however does not work. Will trial CPAP at night here (5) Coronary artery disease: Code(s): I25.10 - Atherosclerotic heart disease of [place] coronary artery without angina pectoris Status: Acute Assessment and Plan: Patient reports she is status post PCI with stent placement 6 months ago in [place]. Continue aspirin and Plavix. Continue statin and Zetia (6) Hypertension: Code(s): I10 - Essential (primary) hypertension Status: Chronic Assessment and Plan: Patient is not on medications, continue to monitor (7) Hypothyroidism: Code(s): E03.9 - Hypothyroidism, unspecified Status: Acute Assessment and Plan: Patient reports she takes Synthroid, unclear of dose. Check TSH Subjective Date/time seen: 07/10/22 12:24 07/10/2028 interval history: 61-year-old female with end-stage renal disease on peritoneal dialysis daily presented with diarrhea suspect infectious patient being treated with Zosyn and so far stool culture no growth, patient states her diarrhea have improved and is hungry wants advanced the diet, will start renal diet, patient with hypokalemia most likely secondary to diarrhea will monitor and supplement. Objective Data Vital Signs Vital Signs: Vital Signs - 24 hr 07/09/22 13:25 07/09/22 16:00 07/09/22 16:00 Temperature 97.9 F Pulse Rate 90 94 90 Respiratory Rate 20 Blood Pressure 129/57 L Pulse Oximetry 100 Oxygen Delivery 07/09/22 16:00 07/09/22 20:00 07/09/22 20:30 Temperature 98.5 F Pulse Rate 90 95 89 Respiratory Rate 20 Blood Pressure 95/51 L Pulse Oximetry 96 Oxygen Delivery 07/09/22 20:30 07/09/22 21:20 07/09/22 21:20 Temperature Pulse Rate 95 Respiratory Rate 20 Blood Pressure Pulse Oximetry 97 97 97 Oxygen Delivery Room Air CPAP Room Air 07/10/22 00:00 07/10/22 00:00 07/10/22 03:43 Temperature 98.4 F 99.0 F Pulse Rate 95 101 H 92 Respiratory Rate 16 17 Blood Pressure 87/52 L 86/51 L Pulse Oximetry 94 100 Oxygen Delivery 0
[2022-07-10 12:38] LABS: Albumin Level 3.2 g/dL (3.5-5.1); Anion Gap 19 mmol/L (8-16); Blood Urea Nitrogen 62 mg/dL (7-17); Calcium 7.8 mg/dL (8.4-10.2); Carbon Dioxide 18 mmol/L (22-30); Chloride 97 mmol/L (98-107); Estimated CRCL calculation 3 ml/min; Estimated Glomerular Filt Rate 4; Glucose 176 mg/dL (65-110); Phosphorus 5.2 mg/dL (2.5-4.5); Potassium 3.1 mmol/L (3.4-5.0); Sodium 134 mmol/L (137-145)
--- NOTE | 2022-07-10 13:00 | PM.PNNEP ---
Progress Note: A&P Assessment and Plan (1) End-stage renal disease (ESRD): Code(s): N18.6 - End stage renal disease Status: Chronic Assessment and Plan: resume CCPD tonight follows with Dr. Segura at [facility] follow electrolytes, volume status, and clearace may need new PD cycler at home given history (2) Diarrhea: Code(s): R19.7 - Diarrhea, unspecified Status: Acute Assessment and Plan: infectious versus metabolic? stool cultures sent follow stool output may need some gentle IVF hydration (3) Hypokalemia: Code(s): E87.6 - Hypokalemia Status: Acute Assessment and Plan: suspect related to dialysis, diarrhea, and fluctuing oral intake replete as needed (4) Hypertension: Code(s): I10 - Essential (primary) hypertension Status: Chronic Assessment and Plan: running on the lower side of normal apparently not taking any medications for this follow trend of hemodynamics (5) Anemia: Code(s): D64.9 - Anemia, unspecified Status: Chronic Assessment and Plan: stable for ESRD follow trend of H/H start Epogen once Hgb goes below 10 (6) Diabetes mellitus: Qualifiers: Chronic kidney disease stage: stage 5, not on chronic dialysis Diabetes mellitus complication detail: with chronic kidney disease Diabetes mellitus complication status: with kidney complications Diabetes mellitus behavioral therapist insulin use: without behavioral therapist use Diabetes mellitus type: type 2 Qualified Code(s): E11.22 - Type 2 diabetes mellitus with diabetic chronic kidney disease; N18.5 - Chronic kidney disease, stage 5 Code(s): E11.9 - Type 2 diabetes mellitus without complications Status: Chronic Assessment and Plan: not currently on any medications follow accuchecks glycemic control Will continue to follow. Subjective Date/time seen: 07/10/22 13:00 Tolerated CCPD treatment overnight without any issues or problems; she is feeling better and diet being advanced as tolerated; hypokalemia noted by AM and getting oral supplementation; no acute issues/events voiced at this time; no apparent distress noted. Exam Narrative: General: WD/WN AA female in NAD Heart: normal S1 and S2; no rub Lungs: clear to auscultation Abdomen: soft, nontender, nondistended, positive bowel sounds Extremities: no cyanosis or clubbing; no edema Skin: warm and dry Objective Data Vital Signs Vital Signs: Vital Signs Temp Pulse Resp BP Pulse Ox O2 Del Method 07/10/22 12:00 85 07/10/22 12:00 36.6 C 86 20 93/49 L 100 07/10/22 09:00 Room Air 07/10/22 09:40 36.6 C 07/10/22 08:00 36.6 C 91 18 99/54 L 99 07/10/22 04:00 88 07/10/22 03:43 37.2 C 92 17 86/51 L 100 07/10/22 00:00 101 H 07/10/22 00:00 36.9 C 95 16 87/52 L 94 07/09/22 21:20 97 Room Air 07/09/22 21:20 97 CPAP 07/09/22 20:30 95 20 97 Room Air 07/09/22 20:30 89 07/09/22 20:00 36.9 C 95 20 95/51 L 96 Intake/Output Intake/Output: Intake & Output 07/07/22 07/08/22 07/09/22 07/10/22 23:59 23:59 23:59 23:59 Intake Total 5266 543 8855 Output Total 4 Balance 4062 550 4451 Meds/Results Medications: Active Medications Generic Name Dose Route Start Last Admin Trade Name Glen PRN Reason Stop Dose Admin Aspirin 81 mg 07/10/22 09:00 07/10/22 09:00 Aspirin 81 Mg Chewable Tablet PO 81 mg DAILY YENI Administration Atorvastatin Calcium 80 mg 07/09/22 17:00 07/09/22 16:43 Atorvastatin 40 Mg Tablet PO 80 mg DAILY@1700 YENI Administration Clopidogrel Bisulfate 75 mg 07/09/22 16:05 07/10/22 09:01 Clopidogrel Bisulfate 75 Mg Tablet PO 75 mg DAILY YENI Administration Ezetimibe 10 mg 07/09/22 21:00 07/09/22 20:53 Ezetimibe 10 Mg Tablet PO 10 mg HS YENI Administration Heparin Sodium (Porcine) 5,000 units
--- NOTE | 2022-07-10 13:00 | P.PNNP_ITS ---
Progress Note: A&P Assessment and Plan (1) End-stage renal disease (ESRD): Code(s): N18.6 - End stage renal disease Status: Chronic Assessment and Plan: * resume CCPD tonight * follows with Dr. Segura at [facility] * follow electrolytes, volume status, and clearace * may need new PD cycler at home given history (2) Diarrhea: Code(s): R19.7 - Diarrhea, unspecified Status: Acute Assessment and Plan: * infectious versus metabolic? * stool cultures sent * follow stool output * may need some gentle IVF hydration (3) Hypokalemia: Code(s): E87.6 - Hypokalemia Status: Acute Assessment and Plan: * suspect related to dialysis, diarrhea, and fluctuing oral intake * replete as needed (4) Hypertension: Code(s): I10 - Essential (primary) hypertension Status: Chronic Assessment and Plan: * running on the lower side of normal * apparently not taking any medications for this * follow trend of hemodynamics (5) Anemia: Code(s): D64.9 - Anemia, unspecified Status: Chronic Assessment and Plan: * stable for ESRD * follow trend of H/H * start Epogen once Hgb goes below 10 (6) Diabetes mellitus: Qualifiers: Chronic kidney disease stage: stage 5, not on chronic dialysis Diabetes mellitus complication detail: with chronic kidney disease Diabetes mellitus complication status: with kidney complications Diabetes mellitus retirement insulin use: without retirement use Diabetes mellitus type: type 2 Qualified Code(s): E11.22 - Type 2 diabetes mellitus with diabetic chronic kidney disease; N18.5 - Chronic kidney disease, stage 5 Code(s): E11.9 - Type 2 diabetes mellitus without complications Status: Chronic Assessment and Plan: * not currently on any medications * follow accuchecks * glycemic control Will continue to follow. Subjective Date/time seen: 07/10/22 13:00 Tolerated CCPD treatment overnight without any issues or problems; she is feeling better and diet being advanced as tolerated; hypokalemia noted by AM and getting oral supplementation; no acute issues/events voiced at this time; no apparent distress noted. Exam Narrative: General: WD/WN AA female in NAD Heart: normal S1 and S2; no rub Lungs: clear to auscultation Abdomen: soft, nontender, nondistended, positive bowel sounds Extremities: no cyanosis or clubbing; no edema Skin: warm and dry Objective Data Vital Signs Vital Signs: Vital Signs Temp Pulse Resp BP Pulse Ox O2 Del Method 07/10/22 12:00 85 07/10/22 12:00 36.6 C 86 20 93/49 L 100 07/10/22 09:00 Room Air 07/10/22 09:40 36.6 C 07/10/22 08:00 36.6 C 91 18 99/54 L 99 07/10/22 04:00 88 07/10/22 03:43 37.2 C 92 17 86/51 L 100 07/10/22 00:00 101 H 07/10/22 00:00 36.9 C 95 16 87/52 L 94 07/09/22 21:20 97 Room Air 07/09/22 21:20 97 CPAP 07/09/22 20:30 95 20 97 Room Air 07/09/22 20:30 89 07/09/22 20:00 36.9 C 95 20 95/51 L 96 Intake/Output Intake/Output: Intake & Output 07/07/22 07/08/22 07/09/22 07/10/22 23:59 23:59 23:59 23:59 Intake Total 8533 786 8600
[2022-07-10] MEDS: ATORVASTATIN 40 MG TABLET 80 MG PO (16:59)
[2022-07-10] MEDS: EZETIMIBE 10 MG TABLET PO (20:18)
[2022-07-11] VITALS (9 sets, daily range): BP systolic 94–119; BP diastolic 46–55; PULSE 74–94; RESP 16–20; TEMP 36.3–37.5; O2SAT 98–100
[2022-07-11] MEDS: SODIUM CHLORIDE 0.9% IV 1,000 ML 50 ML IV CONT ×2 (01:17→21:45)
[2022-07-11 06:10] LABS: Basophils Absolute Auto 0.1 K/mm3 (0.0-0.1); Basophils Percent Auto 0.6 % (0.2-1.2); Eosinophils Absolute Auto 0.3 K/mm3 (0-0.3); Eosinophils Percent Auto 1.7 % (0-4.4); Hematocrit 31.2 % (37.0-47.0); Hemoglobin 9.7 g/dL (12.0-15.0); Immature Granulocyte Absolute 0.38 K/mm3 (0.00-0.031); Immature Granulocyte Percent A 2.3 % (0-0.5); Lymphocytes Absolute Auto 1.09 K/mm3 (0.9-3.2); Lymphocytes Percent Auto 6.7 % (18.3-44.2); Mean Corpuscular HGB Conc 31.1 g/dl (32-36); Mean Corpuscular Volume 90.2 fl (80-100); Mean Platelet Volume 9.6 fl (7.4-10.4); Monocytes Percent Auto 6.4 % (2.6-8.5); Neutrophils Absolute Auto 13.4 K/mm3 (1.3-6.7); Neutrophils Percent Auto 82.3 % (45.5-73.1); Nucleated Red Blood Cells Perc 0.2 % (0.0-0.2); Platelet Count Result 245 k/mm3 (150-375); Red Blood Count 3.46 M/mm3 (4.2-5.4); Red Cell Distribution Width 18.4 % (11.5-14.5); White Blood Count 16.2 K/mm3 (4.5-10.0)
[2022-07-11 06:35] LABS: Alanine Aminotransferase 30 U/L (6-35); Alkaline Phosphatase 151 U/L (38-126); Anion Gap 9 mmol/L (8-16); Aspartate Amino Transferase 38 U/L (14-36); Bilirubin,Total 0.3 mg/dL (0.2-1.3); Blood Urea Nitrogen 47 mg/dL (7-17); Calcium 7.5 mg/dL (8.4-10.2); Carbon Dioxide 19 mmol/L (22-30); Chloride 103 mmol/L (98-107); Glucose 139 mg/dL (65-110); Phosphorus 3.7 mg/dL (2.5-4.5); Potassium 2.7 mmol/L (3.4-5.0); Sodium 131 mmol/L (137-145)
[2022-07-11 07:07] LABS: Anisocytosis 2+ (NORMAL); Platelet Estimate Adequate (Adequate); Poikilocytosis 1+ (NORMAL)
[2022-07-11 07:11] LABS: Estimated CRCL calculation 4 ml/min; Estimated Glomerular Filt Rate 4
[2022-07-11 07:43] LABS: IFOB Positive Control Positive; Immunochemical Fecal Occult Bl Positive (N)
[2022-07-11] MEDS: POTASSIUM CHLORIDE 20 MEQ TABLET 40 MEQ PO ×3 (07:53→20:55)
[2022-07-11] MEDS: HEPARIN SODIUM 5,000 UNITS/ML VIAL 5000 UNITS SUB-Q (07:59)
[2022-07-11] MEDS: ASPIRIN 81 MG CHEWABLE TABLET PO (07:59)
[2022-07-11] MEDS: VITAMIN B CMPLX/VIT C/FOLIC AC 1 CAPSULE 1 CAP PO (07:59)
[2022-07-11] MEDS: CLOPIDOGREL BISULFATE 75 MG TABLET PO (07:59)
[2022-07-11] MEDS: NICOTINE (*PBKC) 14 MG PATCH 1 PATCH TRANSDERM (08:00)
[2022-07-11 12:23] LABS: Magnesium 1.5 mg/dL (1.6-2.3); Potassium 3.1 mmol/L (3.4-5.0)
--- NOTE | 2022-07-11 13:19 | P.PNNP_ITS ---
Progress Note: A&P Assessment and Plan (1) End-stage renal disease (ESRD): Code(s): N18.6 - End stage renal disease Status: Chronic Assessment and Plan: * resume CCPD tonight * follows with Dr. Segura at [facility] * follow electrolytes, volume status, and clearace * may need new PD cycler at home given history (2) Diarrhea: Code(s): R19.7 - Diarrhea, unspecified Status: Acute Assessment and Plan: * infectious versus metabolic? * stool cultures sent * now with blood in stool * GI consultation (3) Hypokalemia: Code(s): E87.6 - Hypokalemia Status: Acute Assessment and Plan: * suspect related to dialysis, diarrhea, and fluctuing oral intake * replete as needed (4) Hypertension: Code(s): I10 - Essential (primary) hypertension Status: Chronic Assessment and Plan: * running on the lower side of normal * apparently not taking any medications for this * follow trend of hemodynamics (5) Anemia: Code(s): D64.9 - Anemia, unspecified Status: Chronic Assessment and Plan: * stable for ESRD * follow trend of H/H * start Epogen once Hgb goes below 10 (6) Diabetes mellitus: Qualifiers: Chronic kidney disease stage: stage 5, not on chronic dialysis Diabetes mellitus complication detail: with chronic kidney disease Diabetes mellitus complication status: with kidney complications Diabetes mellitus chcf insulin use: without chcf use Diabetes mellitus type: type 2 Qualified Code(s): E11.22 - Type 2 diabetes mellitus with diabetic chronic kidney disease; N18.5 - Chronic kidney disease, stage 5 Code(s): E11.9 - Type 2 diabetes mellitus without complications Status: Chronic Assessment and Plan: * not currently on any medications * follow accuchecks * glycemic control Will continue to follow. Subjective Date/time seen: 07/11/22 13:19 Tolerated peritoneal dialysis overnight without any issue or problems; reports that she thinks he has noted blood in her stool in the last 24 hours; no other acute issues/events overnight or earlier this AM. Exam Narrative: General: WD/WN AA female in NAD Heart: normal S1 and S2; no rub Lungs: clear to auscultation Abdomen: soft, nontender, nondistended, positive bowel sounds Extremities: no cyanosis or clubbing; no edema Skin: warm and intact Objective Data Vital Signs Vital Signs: Vital Signs Temp Pulse Resp BP Pulse Ox O2 Del Method 07/11/22 12:00 36.7 C 84 18 94/46 L 100 07/11/22 08:00 Room Air 07/11/22 08:00 36.3 C L 79 16 119/55 L 100 07/11/22 04:00 74 07/11/22 00:00 94 07/11/22 03:37 37.5 C 81 18 111/53 L 100 07/10/22 23:31 37.5 C 82 17 124/59 L 97 07/10/22 20:00 84 07/10/22 20:00 37.4 C 85 18 99/46 L 98 07/10/22 16:00 36.7 C 82 20 82/51 L 99 07/10/22 16:09 80 Intake/Output Intake/Output: Intake & Output 07/08/22 07/09/22 07/10/22 07/11/22 23:59 23:59 23:59 23:59 Intake Total 5297 585 4573 1170 Output Total 4 0 3175 Balance 3293 488 3788 -2004 Meds/Results Medications: Active Medications
--- NOTE | 2022-07-11 13:19 | PM.PNNEP ---
Progress Note: A&P Assessment and Plan (1) End-stage renal disease (ESRD): Code(s): N18.6 - End stage renal disease Status: Chronic Assessment and Plan: resume CCPD tonight follows with Dr. Segura at [facility] follow electrolytes, volume status, and clearace may need new PD cycler at home given history (2) Diarrhea: Code(s): R19.7 - Diarrhea, unspecified Status: Acute Assessment and Plan: infectious versus metabolic? stool cultures sent now with blood in stool GI consultation (3) Hypokalemia: Code(s): E87.6 - Hypokalemia Status: Acute Assessment and Plan: suspect related to dialysis, diarrhea, and fluctuing oral intake replete as needed (4) Hypertension: Code(s): I10 - Essential (primary) hypertension Status: Chronic Assessment and Plan: running on the lower side of normal apparently not taking any medications for this follow trend of hemodynamics (5) Anemia: Code(s): D64.9 - Anemia, unspecified Status: Chronic Assessment and Plan: stable for ESRD follow trend of H/H start Epogen once Hgb goes below 10 (6) Diabetes mellitus: Qualifiers: Chronic kidney disease stage: stage 5, not on chronic dialysis Diabetes mellitus complication detail: with chronic kidney disease Diabetes mellitus complication status: with kidney complications Diabetes mellitus prison insulin use: without prison use Diabetes mellitus type: type 2 Qualified Code(s): E11.22 - Type 2 diabetes mellitus with diabetic chronic kidney disease; N18.5 - Chronic kidney disease, stage 5 Code(s): E11.9 - Type 2 diabetes mellitus without complications Status: Chronic Assessment and Plan: not currently on any medications follow accuchecks glycemic control Will continue to follow. Subjective Date/time seen: 07/11/22 13:19 Tolerated peritoneal dialysis overnight without any issue or problems; reports that she thinks he has noted blood in her stool in the last 24 hours; no other acute issues/events overnight or earlier this AM. Exam Narrative: General: WD/WN AA female in NAD Heart: normal S1 and S2; no rub Lungs: clear to auscultation Abdomen: soft, nontender, nondistended, positive bowel sounds Extremities: no cyanosis or clubbing; no edema Skin: warm and intact Objective Data Vital Signs Vital Signs: Vital Signs Temp Pulse Resp BP Pulse Ox O2 Del Method 07/11/22 12:00 36.7 C 84 18 94/46 L 100 07/11/22 08:00 Room Air 07/11/22 08:00 36.3 C L 79 16 119/55 L 100 07/11/22 04:00 74 07/11/22 00:00 94 07/11/22 03:37 37.5 C 81 18 111/53 L 100 07/10/22 23:31 37.5 C 82 17 124/59 L 97 07/10/22 20:00 84 07/10/22 20:00 37.4 C 85 18 99/46 L 98 07/10/22 16:00 36.7 C 82 20 82/51 L 99 07/10/22 16:09 80 Intake/Output Intake/Output: Intake & Output 07/08/22 07/09/22 07/10/22 07/11/22 23:59 23:59 23:59 23:59 Intake Total 1411 840 3661 1170 Output Total 4 0 3175 Balance 2009 395 7527 -2004 Meds/Results Medications: Active Medications Generic Name Dose Route Start Last Admin Trade Name Glen PRN Reason Stop Dose Admin Aspirin 81 mg 07/10/22 09:00 07/11/22 07:59 Aspirin 81 Mg Chewable Tablet PO 81 mg DAILY [facility] Administration Atorvastatin Calcium 80 mg 07/09/22 17:00 07/10/22 16:59 Atorvastatin 40 Mg Tablet PO 80 mg DAILY@1700 [facility] Administration Clopidogrel Bisulfate 75 mg 07/09/22 16:05 07/11/22 07:59 Clopidogrel Bisulfate 75 Mg Tablet PO 75 mg DAILY YENI Administration Ezetimibe 10 mg 07/11/22 17:00 Ezetimibe 10 Mg Tablet PO 1700 [facility] Heparin Sodium (Porcine) 5,000 units 07/09/22 21:00 07/11/22 07:59 Heparin Sodium 5,000 Units/Ml Vial SUB-Q 5,000 units Q12HR YENI Administration Sodium Chloride 1,000 mls @ 50 mls/hr 07/09/22 11:
--- NOTE | 2022-07-11 13:52 | PM.IMPN ---
Progress Note: A&P Assessment and Plan (1) Diarrhea: Code(s): R19.7 - Diarrhea, unspecified Status: Acute Assessment and Plan: Infectious versus metabolic secondary to suspected dialysis malfunction with uremia. Will send off stool culture, start Zosyn. Light hydration with normal saline 50 cc/HR. Uremia management as below 07/10/2028 interval history: 61-year-old female with end-stage renal disease on peritoneal dialysis daily presented with diarrhea suspect infectious patient being treated with Zosyn and so far stool culture no growth, patient states her diarrhea have improved and is hungry wants advanced the diet, will start renal diet, patient with hypokalemia most likely secondary to diarrhea will monitor and supplement. 07/11/2028 interval history: 61-year-old female with end-stage renal disease on peritoneal dialysis daily presented with diarrhea suspect infectious patient being treated with Zosyn and so far stool culture no growth, patient states her diarrhea have improved however today patient has blood diarrhea will consult GI and was hungry advanced the diet, started renal diet, patient with hypokalemia most likely secondary to diarrhea will monitor and supplement. (2) End-stage renal disease (ESRD): Code(s): N18.6 - End stage renal disease Status: Chronic Assessment and Plan: Nephrology consulted. Patient to be dialyzed tonight. Continue Nephrocaps. Patient unsure if she is on phos binder, will continue to monitor. (3) Diabetes mellitus: Qualifiers: Diabetes mellitus type: type 2 Diabetes mellitus meterman insulin use: without meterman use Diabetes mellitus complication status: with kidney complications Diabetes mellitus complication detail: with chronic kidney disease Chronic kidney disease stage: stage 5, not on chronic dialysis Qualified Code(s): E11.22 - Type 2 diabetes mellitus with diabetic chronic kidney disease; N18.5 - Chronic kidney disease, stage 5 Code(s): E11.9 - Type 2 diabetes mellitus without complications Status: Chronic Assessment and Plan: Documented, however patient reports she is not on any medications. Check A1c (4) Obstructive sleep apnea: Code(s): G47.33 - Obstructive sleep apnea (adult) (pediatric) Status: Acute Assessment and Plan: Patient reports she has a CPAP machine, however does not work. Will trial CPAP at night here (5) Coronary artery disease: Code(s): I25.10 - Atherosclerotic heart disease of robinson coronary artery without angina pectoris Status: Acute Assessment and Plan: Patient reports she is status post PCI with stent placement 6 months ago in [place]. Continue aspirin and Plavix. Continue statin and Zetia (6) Hypertension: Code(s): I10 - Essential (primary) hypertension Status: Chronic Assessment and Plan: Patient is not on medications, continue to monitor (7) Hypothyroidism: Code(s): E03.9 - Hypothyroidism, unspecified Status: Acute Assessment and Plan: Patient reports she takes Synthroid, unclear of dose. Check TSH Subjective Date/time seen: 07/11/22 13:52 07/11/2028 interval history: 61-year-old female with end-stage renal disease on peritoneal dialysis daily presented with diarrhea suspect infectious patient being treated with Zosyn and so far stool culture no growth, patient states her diarrhea have improved however today patient has blood diarrhea will consult GI and was hungry advanced the diet, started renal diet, patient with hypokalemia most likely secondary to diarrhea will monitor and supplement. Exam Narrative: Patient is comfortable, NAD HEENT: eyes are clear and none icteric LUNGS: normal respiratory effort ABD: not distended Lower extremities: no edema SKIN: nonjaundiced Neuro: grossly intact. Objective Data Vital Signs Vital Signs: Vital Signs - 24 hr 07/10/22 16:09 07/10/22 16:00
[2022-07-11] MEDS: MAGNESIUM SULF 2 GM/WATER 50ML 2 GM/50 ML BAG IVPB (15:37)
--- NOTE | 2022-07-11 16:06 | WPDGICN ---
Assessment and Plan Assessment and plan (1) Diarrhea: Code(s): R19.7 - Diarrhea, unspecified Status: Acute Assessment and Plan: Patient with 1 week history of diarrhea that has become bloody. Modest decline in hemoglobin noted since rehydration admission to the hospital. Patient has significant electrolyte disturbance including hypokalemia. She has rather profound azotemia as well. Stool cultures are in progress and have been negative to date. A colonoscopy may be beneficial but should be deferred until patient is rehydrated. Preparation may be somewhat difficult as she is on a fluid restriction. We will monitor hemoglobin with you in the interim as stool cultures are continue to be obtained. (2) Blood in stool: Code(s): K92.1 - Melena Status: Acute Assessment and Plan: Patient with red to bright red bloody stools appear to suggest underlying colitis associated with diarrhea. Stool cultures in progress. Will monitor for now proceed with colonoscopy after she is rehydrated in renal function more stable. (3) End-stage renal disease (ESRD): Code(s): N18.6 - End stage renal disease Status: Chronic (4) Uremia: Code(s): N19 - Unspecified kidney failure Status: Acute (5) Anemia: Code(s): D64.9 - Anemia, unspecified Status: Chronic Assessment and Plan: Patient with decline in hemoglobin associated with rehydration potentially related to chronic kidney disease as well as GI blood loss. (6) Hypokalemia: Code(s): E87.6 - Hypokalemia Status: Acute Assessment and Plan: Hypokalemia likely related to chronic kidney disease potentially also related to diarrhea. Will monitor electrolytes as she is rehydrated. Defer colonoscopy to electrolytes are more stable. GI Consult Note Consult date/time: 07/11/22 16:06 Reason for consult: Bloody diarrhea HPI: Rayne Gracia is a 61 year old female I am asked to see at the request of the hospitalist service because of diarrhea and blood in stool. Patient has a long history of end-stage renal disease. Is on peritoneal dialysis. Patient reports presentation to the hospital after 1 week of diarrhea and progressive weakness. Over the last 1-2 days patient has had blood admixed with her stool. The quantity is somewhat uncertain but patient states it was a Significant amount. Review of Systems Review of Systems: Review of systems noncontributory PMFSH Past Medical History Medical History (Updated 07/11/22 @ 16:11 by Kurtis Barnes MD) Anemia Anxiety and depression COPD (chronic obstructive pulmonary disease) Coronary artery disease Patient reports she had an AL at age 36 in age 38 CVA (cerebral vascular accident) With residual right-sided weakness Diabetes mellitus Diabetic retinopathy End-stage renal disease (ESRD) Patient is scheduled to have an AV fistula placed 08/24/2020 Hyperlipidemia Hypertension Leukocytosis Metabolic acidosis Obstructive sleep apnea With CPAP use with a pressure of 9 Renal osteodystrophy Uncontrolled hypertension Uremia Surgical History Surgical History History of left-sided carotid endarterectomy 2004 History of total hysterectomy with bilateral salpingo-oophorectomy (BSO) Due to uterine fibroid and menorrhagia Family History Family History Mother Acute myocardial infarction Multiple myeloma Diabetes mellitus Sibling Liver cancer Brother age 51 Social History Social History Smoking packs per day: 0.25 Smoking cigarettes per day: 5.0 Years smoked: 43 Smoking pack-years: 10.75 Smoking status: Current every day smoker Tobacco type: cigarettes Additional smoking assessment comments: started smoking around age 16 Alcohol intake: former Alcohol u
[2022-07-11] MEDS: ATORVASTATIN 40 MG TABLET 80 MG PO (16:42)
[2022-07-11] MEDS: EZETIMIBE 10 MG TABLET PO (16:42)
[2022-07-11 18:39] LABS: Hematocrit 34.4 % (37.0-47.0); Hemoglobin 10.7 g/dL (12.0-15.0); Mean Corpuscular HGB Conc 31.1 g/dl (32-36); Mean Corpuscular Hemoglobin 28.5 pg (26-34); Mean Corpuscular Volume 91.5 fl (80-100); Mean Platelet Volume 9.8 fl (7.4-10.4); Platelet Count Result 256 k/mm3 (150-375); Red Blood Count 3.76 M/mm3 (4.2-5.4); Red Cell Distribution Width 18.6 % (11.5-14.5); White Blood Count 14.6 K/mm3 (4.5-10.0)
[2022-07-11 18:49] LABS: Potassium 3.8 mmol/L (3.4-5.0)
[2022-07-12] VITALS (12 sets, daily range): BP systolic 98–149; BP diastolic 51–56; PULSE 72–88; RESP 16–20; TEMP 36.1–36.9; O2SAT 95–100
--- NOTE | 2022-07-12 02:44 | PC.NURSE ---
Addendum entered by Sherron Calero RN 07/12/22 04:55: at appx 0400 Chel from [facility] called and stated no one was irrigation foreman, the machine should be turned off and a telephone lines repairer would be present in the morning to disconnect pt. Original Note: pt's PD alarm sounding low drain volume and check pt lines. Lines checked by RN, fullerette and [employer]. No problems found. Machine was reset but continued to alarm. [facility] exchanged called, Art stated he would send someone out after 0700, fullerette notified Art that this was not acceptable and pt needed intervention tonight. He continued to state no one would come until after 0700. PD machine turned off at demand of patient
[2022-07-12 05:48] LABS: Basophils Absolute Auto 0.1 K/mm3 (0.0-0.1); Basophils Percent Auto 0.7 % (0.2-1.2); Eosinophils Absolute Auto 0.3 K/mm3 (0-0.3); Eosinophils Percent Auto 2.1 % (0-4.4); Hematocrit 30.1 % (37.0-47.0); Hemoglobin 9.4 g/dL (12.0-15.0); Immature Granulocyte Percent A 4.9 % (0-0.5); Lymphocytes Absolute Auto 0.89 K/mm3 (0.9-3.2); Lymphocytes Percent Auto 7.2 % (18.3-44.2); Mean Corpuscular HGB Conc 31.2 g/dl (32-36); Mean Corpuscular Hemoglobin 28.5 pg (26-34); Mean Corpuscular Volume 91.2 fl (80-100); Mean Platelet Volume 9.6 fl (7.4-10.4); Monocytes Percent Auto 8.3 % (2.6-8.5); Neutrophils Absolute Auto 9.5 K/mm3 (1.3-6.7); Neutrophils Percent Auto 76.8 % (45.5-73.1); Platelet Count Result 238 k/mm3 (150-375); Red Cell Distribution Width 18.1 % (11.5-14.5); White Blood Count 12.4 K/mm3 (4.5-10.0)
[2022-07-12 05:59] LABS: Alanine Aminotransferase 43 U/L (6-35); Albumin Level 2.6 g/dL (3.5-5.1); Alkaline Phosphatase 160 U/L (38-126); Anion Gap 7 mmol/L (8-16); Aspartate Amino Transferase 47 U/L (14-36); Bilirubin,Total 0.2 mg/dL (0.2-1.3); Blood Urea Nitrogen 47 mg/dL (7-17); Calcium 7.6 mg/dL (8.4-10.2); Carbon Dioxide 18 mmol/L (22-30); Chloride 109 mmol/L (98-107); Glucose 103 mg/dL (65-110); Magnesium 2.3 mg/dL (1.6-2.3); Phosphorus 3.3 mg/dL (2.5-4.5); Potassium 4.2 mmol/L (3.4-5.0); Sodium 134 mmol/L (137-145)
[2022-07-12 06:07] LABS: Estimated CRCL calculation 4 ml/min; Estimated Glomerular Filt Rate 4
[2022-07-12] MEDS: CLOPIDOGREL BISULFATE 75 MG TABLET PO (08:06)
[2022-07-12] MEDS: VITAMIN B CMPLX/VIT C/FOLIC AC 1 CAPSULE 1 CAP PO (08:06)
[2022-07-12] MEDS: ASPIRIN 81 MG CHEWABLE TABLET PO (08:06)
[2022-07-12] MEDS: NICOTINE (*PBKC) 14 MG PATCH 1 PATCH TRANSDERM (08:06)
[2022-07-12] MEDS: HEPARIN SODIUM 5,000 UNITS/ML VIAL 5000 UNITS SUB-Q ×2 (08:06→20:08)
--- NOTE | 2022-07-12 12:11 | PM.PNNEP ---
Progress Note: A&P Assessment and Plan (1) End-stage renal disease (ESRD): Code(s): N18.6 - End stage renal disease Status: Chronic Assessment and Plan: will hold CCPD tonight given bowel prep today normally follows with Dr. Segura at [facility] follow electrolytes, volume status, and clearace may need new PD cycler at home given admission history (2) Diarrhea: Code(s): R19.7 - Diarrhea, unspecified Status: Acute Assessment and Plan: infectious versus metabolic? stool cultures sent now with blood in stool Gastroenterology following - plan colonoscopy tomorrow (3) Hypokalemia: Code(s): E87.6 - Hypokalemia Status: Acute Assessment and Plan: doing better suspect related to dialysis, diarrhea, and fluctuating oral intake replete as needed (4) Hypertension: Code(s): I10 - Essential (primary) hypertension Status: Chronic Assessment and Plan: running on the lower side of normal apparently not taking any medications for this follow trend of hemodynamics (5) Anemia: Code(s): D64.9 - Anemia, unspecified Status: Chronic Assessment and Plan: stable for ESRD follow trend of H/H start Epogen since Hgn < 10 (6) Diabetes mellitus: Qualifiers: Chronic kidney disease stage: stage 5, not on chronic dialysis Diabetes mellitus complication detail: with chronic kidney disease Diabetes mellitus complication status: with kidney complications Diabetes mellitus ad terminal makeup operator insulin use: without residential use Diabetes mellitus type: type 2 Qualified Code(s): E11.22 - Type 2 diabetes mellitus with diabetic chronic kidney disease; N18.5 - Chronic kidney disease, stage 5 Code(s): E11.9 - Type 2 diabetes mellitus without complications Status: Chronic Assessment and Plan: not currently on any medications follow accuchecks glycemic control Will continue to follow. Subjective Date/time seen: 07/12/22 12:11 Patient did not receive peritoneal dialysis yesterday evening -- she states that PD cycler kept alarming so she turned off the machine; noted tentative plans for colonoscopy tomorrow due to concerns of possible lower GI bleed; no acute distress noted at the time of my visit. Exam Narrative: General: WD/WN AA female in NAD Heart: normal S1 and S2; no rub Lungs: clear to auscultation Abdomen: soft, nontender, nondistended, positive bowel sounds Extremities: no cyanosis or clubbing; no edema Skin: warm and intact Objective Data Vital Signs Vital Signs: Vital Signs Temp Pulse Resp BP Pulse Ox O2 Del Method FiO2 07/12/22 08:00 99 CPAP 07/12/22 08:00 36.9 C 88 16 123/54 L 100 07/12/22 08:07 36.9 C 75 19 98/52 L 07/12/22 06:00 36.9 C 75 19 98/52 L 97 07/12/22 04:00 76 07/12/22 00:00 82 07/12/22 03:19 79 95 CPAP 07/11/22 20:00 36.9 C 86 18 95/50 L 100 07/11/22 22:46 98 CPAP 21 07/11/22 22:44 78 98 CPAP 07/11/22 20:00 80 07/11/22 16:00 78 07/11/22 16:00 36.7 C 79 20 95/47 L 98 Intake/Output Intake/Output: Intake & Output 07/09/22 07/10/22 07/11/22 07/12/22 23:59 23:59 23:59 23:59 Intake Total 920 2540 2510 Output Total 4 0 3177 103 Balance 916 2540 -667 -103 Meds/Results Medications: Active Medications Generic Name Dose Route Start Last Admin Trade Name Glen PRN Reason Stop Dose Admin Aspirin 81 mg 07/10/22 09:00 07/12/22 08:06 Aspirin 81 Mg Chewable Tablet PO 81 mg DAILY [facility]I Administration Atorvastatin Calcium 80 mg 07/09/22 17:00 07/11/22 16:42 Atorvastatin 40 Mg Tablet PO 80 mg DAILY@1700 YENI Administration Clopidogrel Bisulfate 75 mg 07/09/22 16:05 07/12/22 08:06 Clopidogrel Bisulfate 75 Mg Tablet PO 75 mg DAILY [facility]I Administration Ezetimibe 10 mg 07/11/22 17:00 07/11/22 16:42 Ezetimibe 10 Mg Ta
--- NOTE | 2022-07-12 12:11 | P.PNNP_ITS ---
Progress Note: A&P Assessment and Plan (1) End-stage renal disease (ESRD): Code(s): N18.6 - End stage renal disease Status: Chronic Assessment and Plan: * will hold CCPD tonight given bowel prep today * normally follows with Dr. Segura at [facility] * follow electrolytes, volume status, and clearace * may need new PD cycler at home given admission history (2) Diarrhea: Code(s): R19.7 - Diarrhea, unspecified Status: Acute Assessment and Plan: * infectious versus metabolic? * stool cultures sent * now with blood in stool * Gastroenterology following - plan colonoscopy tomorrow (3) Hypokalemia: Code(s): E87.6 - Hypokalemia Status: Acute Assessment and Plan: * doing better * suspect related to dialysis, diarrhea, and fluctuating oral intake * replete as needed (4) Hypertension: Code(s): I10 - Essential (primary) hypertension Status: Chronic Assessment and Plan: * running on the lower side of normal * apparently not taking any medications for this * follow trend of hemodynamics (5) Anemia: Code(s): D64.9 - Anemia, unspecified Status: Chronic Assessment and Plan: * stable for ESRD * follow trend of H/H * start Epogen since Hgn < 10 (6) Diabetes mellitus: Qualifiers: Chronic kidney disease stage: stage 5, not on chronic dialysis Diabetes mellitus complication detail: with chronic kidney disease Diabetes mellitus complication status: with kidney complications Diabetes mellitus termite technician insulin use: without termite technician use Diabetes mellitus type: type 2 Qualified Code(s): E11.22 - Type 2 diabetes mellitus with diabetic chronic kidney disease; N18.5 - Chronic kidney disease, stage 5 Code(s): E11.9 - Type 2 diabetes mellitus without complications Status: Chronic Assessment and Plan: * not currently on any medications * follow accuchecks * glycemic control Will continue to follow. Subjective Date/time seen: 07/12/22 12:11 Patient did not receive peritoneal dialysis yesterday evening -- she states that PD cycler kept alarming so she turned off the machine; noted tentative plans for colonoscopy tomorrow due to concerns of possible lower GI bleed; no acute distress noted at the time of my visit. Exam Narrative: General: WD/WN AA female in NAD Heart: normal S1 and S2; no rub Lungs: clear to auscultation Abdomen: soft, nontender, nondistended, positive bowel sounds Extremities: no cyanosis or clubbing; no edema Skin: warm and intact Objective Data Vital Signs Vital Signs: Vital Signs Temp Pulse Resp BP Pulse Ox O2 Del Method FiO2 07/12/22 08:00 99 CPAP 07/12/22 08:00 36.9 C 88 16 123/54 L 100 07/12/22 08:07 36.9 C 75 19 98/52 L 07/12/22 06:00 36.9 C 75 19 98/52 L 97 07/12/22 04:00 76 07/12/22 00:00 82 07/12/22 03:19 79 95 CPAP 07/11/22 20:00 36.9 C 86 18 95/50 L 100 07/11/22 22:46 98 CPAP 21 07/11/22 22:44 78 98 CPAP 07/11/22 20:00 80 07/11/22 16:00 78 07/11/22 16:00 36.7 C 79 20 95/47 L 98 Intake/Output Intake/Output: Intake & Output 07/09/22 07/10/22 07/11/22 07/12/22 23:5
--- NOTE | 2022-07-12 12:40 | WPDGIPROGNO ---
Progress Note: A&P Assessment and Plan (1) Blood in stool: Code(s): K92.1 - Melena Status: Acute Assessment and Plan: Patient with bloody diarrhea. Etiology unclear. Stool cultures negative to date although it appears at stool for C diff was not obtained. Plan for colonoscopy because of ongoing bleeding. It appears the patient has become somewhat dehydrated contributing to her azotemia and electrolyte imbalance. Electrolytes have now improved potassium in a normal range. Hemoglobin stable but has declined since admission with rehydration. Plan to proceed with colonoscopy Tomorrow. after preparation today. (2) Diarrhea: Code(s): R19.7 - Diarrhea, unspecified Status: Acute (3) Hypokalemia: Code(s): E87.6 - Hypokalemia Status: Acute (4) Uremia: Code(s): N19 - Unspecified kidney failure Status: Acute Assessment and Plan: Uremia likely contributes to patient's anemia. However bleeding also may contribute. Will proceed with colonoscopy if others agree. (5) Anemia: Code(s): D64.9 - Anemia, unspecified Status: Chronic (6) Diabetes mellitus: Qualifiers: Diabetes mellitus type: type 2 Diabetes mellitus linen keeper insulin use: without linen keeper use Diabetes mellitus complication status: with kidney complications Diabetes mellitus complication detail: with chronic kidney disease Chronic kidney disease stage: stage 5, not on chronic dialysis Qualified Code(s): E11.22 - Type 2 diabetes mellitus with diabetic chronic kidney disease; N18.5 - Chronic kidney disease, stage 5 Code(s): E11.9 - Type 2 diabetes mellitus without complications Status: Chronic Subjective Date/time seen: 07/12/22 12:40 Patient alert more comfortable today. Continues to have diarrhea. Less bleeding noted. She denies any significant abdominal pain at present. Review of Systems Review of Systems: Review of systems noncontributory Exam Narrative: Physical exam reveals patient be alert comfortable at rest. HEENT exam reveals no icterus. Lungs are clear. Heart without murmur. Abdomen bowel sounds present soft nontender with no organomegaly. Objective Data Vital Signs Vital Signs: Vital Signs - 24 hr 07/11/22 16:00 07/11/22 16:00 07/11/22 20:00 Temperature 98.1 F Pulse Rate 79 78 80 Respiratory Rate 20 Blood Pressure 95/47 L Pulse Oximetry 98 Oxygen Delivery Fraction of Inspired Oxygen 07/11/22 22:44 07/11/22 22:46 07/11/22 20:00 Temperature 98.4 F Pulse Rate 78 86 Respiratory Rate 18 Blood Pressure 95/50 L Pulse Oximetry 98 98 100 Oxygen Delivery CPAP CPAP Fraction of Inspired Oxygen 07/12/22 03:19 07/12/22 00:00 07/12/22 04:00 Temperature Pulse Rate 79 82 76 Respiratory Rate Blood Pressure Pulse Oximetry 95 Oxygen Delivery CPAP Fraction of Inspired Oxygen 07/12/22 06:00 07/12/22 08:07 07/12/22 08:00 Temperature 98.5 F 98.5 F 98.4 F Pulse Rate 75 75 88 Respiratory Rate 19 19 16 Blood Pressure 98/52 L 98/52 L 123/54 L Pulse Oximetry 97 100 Oxygen Delivery Fraction of Inspired Oxygen 07/12/22 08:00 Temperature Pulse Rate Respiratory Rate Blood Pressure Pulse Oximetry 99 Oxygen Delivery CPAP Fraction of Inspired Oxygen Intake/Output Intake/Output: Intake & Output 07/09/22 07/10/22 07/11/22 07/12/22 23:59 23:59 23:59 23:59 Intake Total 920 2540 2510 Output Total 4 0 3177 103 Balance 916 2540 -667 -103 Meds/Results Medications: Active Medications Generic Name Dose Route Start Last Admin Trade Name Glen PRN Reason Stop Dose Admin Aspirin 81 mg 07/10/22 09:00 07/12/22 08:06 Aspirin 81 Mg Chewable Tablet PO 81 mg DAILY [facility] Administration Atorvastatin Calcium 80 mg 07/09/22 17:00 07/11/22 16:42 Atorvastatin 40 Mg Tablet PO 80 mg DAILY@1700 YENI Administration Clopidogrel Bisulfate 75 mg 07/09/22 16:05
--- NOTE | 2022-07-12 13:37 | PM.IMPN ---
Progress Note: A&P Assessment and Plan (1) Diarrhea: Code(s): R19.7 - Diarrhea, unspecified Status: Acute Assessment and Plan: Infectious versus metabolic secondary to suspected dialysis malfunction with uremia. Will send off stool culture, start Zosyn. Light hydration with normal saline 50 cc/HR. Uremia management as below 07/10/2028 interval history: 61-year-old female with end-stage renal disease on peritoneal dialysis daily presented with diarrhea suspect infectious patient being treated with Zosyn and so far stool culture no growth, patient states her diarrhea have improved and is hungry wants advanced the diet, will start renal diet, patient with hypokalemia most likely secondary to diarrhea will monitor and supplement. 07/11/2028 interval history:? 61-year-old female with end-stage renal disease on peritoneal dialysis daily presented with diarrhea suspect infectious patient being treated with Zosyn and so far stool culture no growth, patient states her diarrhea have improved however today patient has blood diarrhea will consult GI? and was hungry advanced the diet, started renal diet, patient with hypokalemia most likely secondary to diarrhea will monitor and supplement. 07/12/2028 interval history:? 61-year-old female with end-stage renal disease on peritoneal dialysis daily presented with diarrhea suspect infectious patient being treated with Zosyn and so far stool culture no growth, will stop abx, patient states her diarrhea have improved however on 07/11 patient had bloody diarrhea consulted GI, recommending colonoscopy which is scheduled for tomorrow, was hungry advanced the diet, started renal diet, patient with hypokalemia most likely secondary to diarrhea will monitor and supplement. (2) End-stage renal disease (ESRD): Code(s): N18.6 - End stage renal disease Status: Chronic Assessment and Plan: Nephrology consulted. Patient to be dialyzed tonight. Continue Nephrocaps. Patient unsure if she is on phos binder, will continue to monitor. (3) Diabetes mellitus: Qualifiers: Diabetes mellitus type: type 2 Diabetes mellitus mcc insulin use: without mcc use Diabetes mellitus complication status: with kidney complications Diabetes mellitus complication detail: with chronic kidney disease Chronic kidney disease stage: stage 5, not on chronic dialysis Qualified Code(s): E11.22 - Type 2 diabetes mellitus with diabetic chronic kidney disease; N18.5 - Chronic kidney disease, stage 5 Code(s): E11.9 - Type 2 diabetes mellitus without complications Status: Chronic Assessment and Plan: Documented, however patient reports she is not on any medications. Check A1c (4) Obstructive sleep apnea: Code(s): G47.33 - Obstructive sleep apnea (adult) (pediatric) Status: Acute Assessment and Plan: Patient reports she has a CPAP machine, however does not work. Will trial CPAP at night here (5) Coronary artery disease: Code(s): I25.10 - Atherosclerotic heart disease of [place] coronary artery without angina pectoris Status: Acute Assessment and Plan: Patient reports she is status post PCI with stent placement 6 months ago in [place]. Continue aspirin and Plavix. Continue statin and Zetia (6) Hypertension: Code(s): I10 - Essential (primary) hypertension Status: Chronic Assessment and Plan: Patient is not on medications, continue to monitor (7) Hypothyroidism: Code(s): E03.9 - Hypothyroidism, unspecified Status: Acute Assessment and Plan: Patient reports she takes Synthroid, unclear of dose. Check TSH Subjective Date/time seen: 07/12/22 13:37 07/12/2028 interval history:? 61-year-old female with end-stage renal disease on peritoneal dialysis daily presented with diarrhea suspect infectious patient being treated with Zosyn and so far stool culture no growth, will stop abx, patient states h
--- NOTE | 2022-07-12 14:29 | PC.NURSE ---
Catie RN called GI Lab about LR 150ml/hr ordered for Pre-OP during Colonoscopy 07/14/22. The patient is a dialysis patient and cannot handle the standard order. Anjana, in GI Lab, is going to notify the GI supervisor building maintenance nurse in regards to [employer] RNs concern.
--- NOTE | 2022-07-12 15:24 | PC.NURSE ---
Catie RN called GI Lab about LR 150ml/hr ordered for Pre-OP during Colonoscopy 07/13/22. The patient is a dialysis patient and cannot handle the standard order. Anjana, in GI Lab, is going to notify the GI conveyor line battery charger nurse in regards to [facility] RNs concern.
[2022-07-12] MEDS: PEG (High)/E-LYTE SOLN 4,000 ML BTL 4000 ML PO (17:05)
[2022-07-12] MEDS: EPOETIN ALFA-EPBX 20,000 UNITS/ML VIAL 20000 UNITS SUB-Q (17:05)
[2022-07-12] MEDS: ATORVASTATIN 40 MG TABLET 80 MG PO (17:06)
[2022-07-12] MEDS: EZETIMIBE 10 MG TABLET PO (17:06)
[2022-07-12] MEDS: SODIUM CHLORIDE 0.9% IV 1,000 ML 50 ML IV CONT (18:04)
--- NOTE | 2022-07-12 19:49 | PM.IMHP ---
H&P: HPI History of Present Illness Date/Time: 07/08/22 19:49 Patient seen, examined and evaluated on this date (07/08/2022) this is a late entry note. Chief Complaint: MALFUNCTIONING PERITONEAL DIALYSIS MACHINE. Narrative: THIS IS A 61-YEAR-OLD FEMALE WITH PAST MEDICAL HISTORY SIGNIFICANT FOR END-STAGE RENAL DISEASE ON PERITONEAL DIALYSIS PATIENT PRESENTS TO THE EMERGENCY ROOM STATING THAT HER MACHINE HAS NOT BEEN WORKING PROPERLY. PATIENT DENIES ANY FEVERS, RIGORS, CHILLS, ABDOMINAL PAIN, had NAUSEA, had VOMITING, for the last 3 days or so. PRELIMINARY WORKUP WAS SIGNIFICANT FOR CT OF ABDOMEN AND PELVIS WAS REPORTED : IMPRESSION: 1. Small to moderate amount of free intraperitoneal fluid in the abdomen and pelvis likely related to peritoneal dialysis with right lower quadrant peritoneal dialysis catheter. PATIENT HAS BEEN ADMITTED FOR FURTHER EVALUATION MANAGEMENT AND TREATMENT Review of Systems Review of Systems: PATIENT PRESENTS TO EMERGENCY ROOM DUE TO MALFUNCTIONING PERITONEAL DIALYSIS MACHINE Constitutional: Constitutional: Denies chills, Denies fever(s), Denies malaise, Denies night sweats, Denies poor appetite and Denies weakness Eyes: Eyes: Denies change in vision ENT: Denies dysphagia, Denies vertigo, Denies dizziness and Denies odynophagia Cardiovascular: Cardiovascular: Denies chest pain, Denies syncope, Denies irregular heart rhythm, Denies lightheadedness and Denies palpitations Respiratory: Respiratory: Denies chest congestion, Denies cough, Denies excessive phlegm production, Denies pain on inspiration, Denies dyspnea and Denies dyspnea on exertion Gastrointestinal: Gastrointestinal: Denies dyspepsia, Denies heartburn, Denies diarrhea, Denies nausea and Denies vomiting Genitourinary: Genitourinary: Reports no additional female genitourinary complaints and Reports as per HPI Musculoskeletal: Musculoskeletal: Reports no additional musculoskeletal complaints and Reports as per HPI Integumentary/Breasts: Skin/Breast: Reports system reviewed and no additional complaints, except as docu and Reports as per HPI Neurologic: Reports system reviewed and no additional complaints, except as documented and Reports as per HPI Psychiatric: Psychiatric: Reports no additional psychiatric complaints and Reports as per HPI Endocrine: Endocrine: Reports no additional endocrine complaints and Reports as per HPI Hematologic/Lymphatic: Hematologic/Lymphatic: Reports no additional hematologic/lymphatic complaints and Reports as per HPI [facility] Past Medical History Medical History (Updated 07/11/22 @ 16:11 by Kurtis Barnes MD) Anemia Anxiety and depression COPD (chronic obstructive pulmonary disease) Coronary artery disease Patient reports she had an IN at age 36 in age 38 CVA (cerebral vascular accident) With residual right-sided weakness Diabetes mellitus Diabetic retinopathy End-stage renal disease (ESRD) Patient is scheduled to have an AV fistula placed 08/24/2020 Hyperlipidemia Hypertension Leukocytosis Metabolic acidosis Obstructive sleep apnea With CPAP use with a pressure of 9 Renal osteodystrophy Uncontrolled hypertension Uremia Surgical History Surgical History History of left-sided carotid endarterectomy 2004 History of total hysterectomy with bilateral salpingo-oophorectomy (BSO) Due to uterine fibroid and menorrhagia Family History Family History Mother Acute myocardial infarction Multiple myeloma Diabetes mellitus Sibling Liver cancer Brother age 51 Social History Social History Smoking packs per day: 0.25 Smoking cigarettes per day: 5.0 Years smoked: 43 Smoking pack-years: 10.75 Smoking status: Current every day smoker Tobacco type: cigarettes Additional smoking assessment comments: started smoking ar
[2022-07-13] VITALS (13 sets, daily range): BP systolic 114–165; BP diastolic 42–69; PULSE 73–88; RESP 16–22; TEMP 36.1–37.2; O2SAT 95–100
[2022-07-13 06:34] LABS: Hematocrit 28.7 % (37.0-47.0); Hemoglobin 8.8 g/dL (12.0-15.0); Mean Corpuscular HGB Conc 30.7 g/dl (32-36); Mean Corpuscular Hemoglobin 27.6 pg (26-34); Mean Platelet Volume 10.1 fl (7.4-10.4); Platelet Count Result 254 k/mm3 (150-375); Red Blood Count 3.19 M/mm3 (4.2-5.4); Red Cell Distribution Width 18.4 % (11.5-14.5); White Blood Count 9.4 K/mm3 (4.5-10.0)
[2022-07-13 06:47] LABS: Alanine Aminotransferase 48 U/L (6-35); Albumin Level 2.3 g/dL (3.5-5.1); Alkaline Phosphatase 143 U/L (38-126); Anion Gap 14 mmol/L (8-16); Aspartate Amino Transferase 36 U/L (14-36); Bilirubin,Total 0.2 mg/dL (0.2-1.3); Blood Urea Nitrogen 46 mg/dL (7-17); Calcium 7.9 mg/dL (8.4-10.2); Carbon Dioxide 15 mmol/L (22-30); Chloride 110 mmol/L (98-107); Estimated CRCL calculation 4 ml/min; Estimated Glomerular Filt Rate 4; Glucose 82 mg/dL (65-110); Phosphorus 3.4 mg/dL (2.5-4.5); Potassium 3.9 mmol/L (3.4-5.0); Sodium 139 mmol/L (137-145)
[2022-07-13 07:03] LABS: Band Neutrophils Percent 10 % (0-6); Eosinophils Absolute Manual 0.37 K/mm3 (0.02-0.5); Eosinophils Percent Manual 4 % (0-4); Lymphocytes Absolute Manual 1.22 K/mm3 (1.1-4.5); Monocytes Absolute Manual 0.47 K/mm3 (0.1-0.90); Monocytes Percent Manual 5 % (3-9); Neutrophils Absolute Manual 7.33 K/mm3 (1.7-7.2); Neutrophils Percent Manual 68 % (46-73); Total Cells Counted 100
[2022-07-13 07:04] LABS: Platelet Estimate Adequate (Adequate)
[2022-07-13] MEDS: NICOTINE (*PBKC) 14 MG PATCH 1 PATCH TRANSDERM (08:46)
[2022-07-13] MEDS: HEPARIN SODIUM 5,000 UNITS/ML VIAL 5000 UNITS SUB-Q ×2 (08:47→20:53)
[2022-07-13] MEDS: EPOETIN ALFA-EPBX 10,000 UNITS/ML VIAL 10000 UNITS SUB-Q (09:02)
--- NOTE | 2022-07-13 11:14 | WPDANESEPPF ---
Anes - Initial Pre Proc Eval Procedure: Operation Date: 07/13/22 12:00 Proposed Procedures p Colonoscopy - Kurtis Barnes MD Date/Time: 07/13/22 11:14 Surgeon: Sachin Ralph DO Pre Op Diagnosis: dehydration Patient Data Age: 61 Gender: F Height: 1.57 m Weight: 60.5 kg Last Vital Signs Temp 37.2 C 07/13/22 06:00 Pulse 77 07/13/22 08:00 Resp 18 07/13/22 08:00 BP 132/57 L 07/13/22 06:00 Pulse Ox 95 07/13/22 08:00 O2 Del Method Room Air 07/13/22 08:00 FiO2 21 07/13/22 08:00 Allergies Allergy/AdvReac Type Severity Reaction Status Date / Time codeine Allergy Hives Verified 07/08/22 17:48 rivaroxaban [From Xarelto] Allergy Hives Verified 07/08/22 17:48 Home Medications Medication Instructions Recorded Confirmed Type aspirin 81 mg chewable tablet 81 mg PO DAILY 08/14/20 07/08/22 History atorvastatin 40 mg tablet 80 mg PO DAILY 08/14/20 07/08/22 History ezetimibe 10 mg tablet 10 mg PO HS 08/14/20 07/08/22 History clopidogrel 75 mg tablet (Plavix) 1 mg PO DAILY 07/08/22 07/08/22 History losartan 50 mg tablet 50 mg PO DAILY 07/11/22 07/11/22 History mirtazapine 15 mg tablet 15 mg PO HS 07/11/22 07/11/22 History repaglinide 0.5 mg tablet 0.5 mg PO TID 07/11/22 07/11/22 History Laboratory Tests 07/13/22 07/13/22 06:01 06:01 WBC 9.4 K/mm3 K/mm3 (4.5-10.0) RBC 3.19 M/mm3 L M/mm3 (4.2-5.4) Hgb 8.8 g/dL L g/dL (12.0-15.0) Hct 28.7 % L % (37.0-47.0) MCV 90.0 fl fl (80-100) MCH 27.6 pg pg (26-34) MCHC 30.7 g/dl L g/dl (32-36) RDW 18.4 % H % (11.5-14.5) Plt Count 254 k/mm3 k/mm3 (150-375) MPV 10.1 fl fl (7.4-10.4) Immature Gran % (Auto) Not Reportable Neut % (Auto) Not Reportable Lymph % (Auto) Not Reportable [place] % (Auto) Not Reportable Eos % (Auto) Not Reportable Baso % (Auto) Not Reportable Lymph # (Auto) Not Reportable [place] # (Auto) Not Reportable Eos # (Auto) Not Reportable Baso # (Auto) Not Reportable Abs Immat Gran (auto) Not Reportable Absolute Neuts (auto) Not Reportable Absolute Nucleated RBC Not Reportable Total Counted 100 Neutrophils % (Manual) 68 % % (46-73) Band Neutrophils % 10 % H % (0-6) Lymphocytes % (Manual) 13.0 % L % (18-44) Monocytes % (Manual) 5 % % (3-9) Eosinophils % (Manual) 4 % % (0-4) Nucleated RBC % Not Reportable Abs Neuts (Manual) 7.33 K/mm3 H K/mm3 (1.7-7.2) Abs Lymphs (Manual) 1.22 K/mm3 K/mm3 (1.1-4.5) Abs Monocytes (Manual) 0.47 K/mm3 K/mm3 (0.1-0.90) Absolute Eos (Manual) 0.37 K/mm3 K/mm3 (0.02-0.5) Platelet Estimate Adequate (Adequate) Sodium 139 mmol/L mmol/L (137-145) Potassium 3.9 mmol/L mmol/L (3.4-5.0) Chloride 110 mmol/L H mmol/L (98-107) Carbon Dioxide 15 mmol/L L mmol/L (22-30) Anion Gap 14 mmol/L mmol/L (8-16) BUN 46 mg/dL H mg/dL (7-17) Creatinine 11.60 mg/dL H mg/dL (0.7-1.0) Estim Creat Clear Calc 4 ml/min ml/min Estimated GFR 4 L (59 - ) Glucose 82 mg/dL mg/dL (65-110) Calcium 7.9 mg/dL L mg/dL (8.4-10.2) Phosphorus 3.4 mg/dL mg/dL (2.5-4.5) Total Bilirubin 0.2 mg/dL mg/dL (0.2-1.3) AST 36 U/L U/L (14-36) ALT 48 U/L H U/L (6-35) Alkaline Phosphatase 143 U/L H U/L (38-126) Total Protein 5.0 g/dL L g/dL (6.3-8.2) Albumin 2.3 g/dL L g/dL (3.5-5.1) Patient hx anesthesia problems: none Family hx anesthesia problems: none Results Review: All pre-operative results and documents have been reviewed as part of the pre-operative evaluation. [facility] Past Medical History Medical History (Updated 07/11/22 @ 16:11 by Kurtis Barnes MD) Anemia Anxiety and depression
[2022-07-13] MEDS: SODIUM CHLORIDE 0.9% IV 1,000 ML 30 ML IV CONT (11:15)
[2022-07-13] MEDS: SIMETHICONE ORAL SUSPENSION 20 MG/0.3 ML 30 ML BOTTLE 0.6 ML PO (12:45)
--- NOTE | 2022-07-13 13:55 | PM.PNNEP ---
Progress Note: A&P Assessment and Plan (1) End-stage renal disease (ESRD): Code(s): N18.6 - End stage renal disease Status: Chronic Assessment and Plan: resume CCPD tonight given bowel prep today normally follows with Dr. Segura at [facility] follow electrolytes, volume status, and clearance may need new PD cycler at home given admission history (2) Diarrhea: Code(s): R19.7 - Diarrhea, unspecified Status: Acute Assessment and Plan: infectious versus metabolic? stool cultures sent s/p colonoscopy with findings noted - nonspecific inflammation of sigmoid colon with superficial erosion (suspect infectious etiology) Gastroenterology following empiric antibiotics (3) Hypokalemia: Code(s): E87.6 - Hypokalemia Status: Acute Assessment and Plan: doing better suspect related to dialysis, diarrhea, and fluctuating oral intake replete as needed (4) Hypertension: Code(s): I10 - Essential (primary) hypertension Status: Chronic Assessment and Plan: running on the lower side of normal apparently not taking any medications for this follow trend of hemodynamics (5) Anemia: Code(s): D64.9 - Anemia, unspecified Status: Chronic Assessment and Plan: stable for ESRD follow trend of H/H Epogen 3x/week (6) Diabetes mellitus: Qualifiers: Chronic kidney disease stage: stage 5, not on chronic dialysis Diabetes mellitus complication detail: with chronic kidney disease Diabetes mellitus complication status: with kidney complications Diabetes mellitus machine long goods helper insulin use: without machine long goods helper use Diabetes mellitus type: type 2 Qualified Code(s): E11.22 - Type 2 diabetes mellitus with diabetic chronic kidney disease; N18.5 - Chronic kidney disease, stage 5 Code(s): E11.9 - Type 2 diabetes mellitus without complications Status: Chronic Assessment and Plan: not currently on any medications follow accuchecks glycemic control Will continue to follow. Subjective Date/time seen: 07/13/22 13:55 S/P colonoscopy earlier today and bowel prep last night -- findings noted (sigmoiditis); sleeping comfortably at the time of my visit; CCPD treatment has been initiated; no acute distress voiced; no other issues/events overnight or earlier this AM. Exam Narrative: General: WD/WN AA female in NAD Heart: normal S1 and S2; no rub Lungs: clear to auscultation Abdomen: soft, nontender, nondistended, positive bowel sounds Extremities: no cyanosis or clubbing; no edema Skin: warm and intact Objective Data Vital Signs Vital Signs: Vital Signs Temp Pulse Resp BP Pulse Ox O2 Del Method FiO2 07/13/22 13:14 73 21 H 120/46 L 100 Room Air 07/13/22 13:04 79 20 119/48 L 100 Room Air 07/13/22 12:54 88 22 H 114/42 L 99 Room Air 07/13/22 11:17 36.1 C L 77 18 125/42 L 100 Room Air 07/13/22 08:00 77 18 95 Room Air 21 07/13/22 08:00 77 07/13/22 06:00 37.2 C 77 18 132/57 L 95 07/13/22 04:00 75 07/13/22 00:00 76 07/12/22 21:50 99 Room Air 07/12/22 22:00 36.1 C L 77 16 149/56 H 99 07/12/22 20:00 72 20 100 CPAP 21 07/12/22 20:00 74 07/12/22 16:00 72 Intake/Output Intake/Output: Intake & Output 07/10/22 07/11/22 07/12/22 07/13/22 23:59 23:59 23:59 23:59 Intake Total 2540 2510 2360 50 Output Total 0 3177 103 Balance 2540 -132 2257 50 Meds/Results Medications: Active Medications Generic Name Dose Route Start Last Admin Trade Name Freq PRN Reason Stop Dose Admin Aspirin 81 mg 07/10/22 09:00 07/12/22 08:06 Aspirin 81 Mg Chewable Tablet PO 81 mg DAILY YENI Administration Atorvastatin Calcium 80 mg 07/09/22 17:00 07/12/22 17:06 Atorvastatin 40 Mg Tablet PO 80 mg DAILY@1700 YENI Administration Clopidogrel Bisulfate 75 mg 07/09/22 16:05 07/12/22
--- NOTE | 2022-07-13 13:55 | P.PNNP_ITS ---
Progress Note: A&P Assessment and Plan (1) End-stage renal disease (ESRD): Code(s): N18.6 - End stage renal disease Status: Chronic Assessment and Plan: * resume CCPD tonight given bowel prep today * normally follows with Dr. Segura at [facility] * follow electrolytes, volume status, and clearance * may need new PD cycler at home given admission history (2) Diarrhea: Code(s): R19.7 - Diarrhea, unspecified Status: Acute Assessment and Plan: * infectious versus metabolic? * stool cultures sent * s/p colonoscopy with findings noted - nonspecific inflammation of sigmoid colon with superficial erosion (suspect infectious etiology) * Gastroenterology following * empiric antibiotics (3) Hypokalemia: Code(s): E87.6 - Hypokalemia Status: Acute Assessment and Plan: * doing better * suspect related to dialysis, diarrhea, and fluctuating oral intake * replete as needed (4) Hypertension: Code(s): I10 - Essential (primary) hypertension Status: Chronic Assessment and Plan: * running on the lower side of normal * apparently not taking any medications for this * follow trend of hemodynamics (5) Anemia: Code(s): D64.9 - Anemia, unspecified Status: Chronic Assessment and Plan: * stable for ESRD * follow trend of H/H * Epogen 3x/week (6) Diabetes mellitus: Qualifiers: Chronic kidney disease stage: stage 5, not on chronic dialysis Diabetes mellitus complication detail: with chronic kidney disease Diabetes mellitus complication status: with kidney complications Diabetes mellitus custodial insulin use: without custodial use Diabetes mellitus type: type 2 Qualified Code(s): E11.22 - Type 2 diabetes mellitus with diabetic chronic kidney disease; N18.5 - Chronic kidney disease, stage 5 Code(s): E11.9 - Type 2 diabetes mellitus without complications Status: Chronic Assessment and Plan: * not currently on any medications * follow accuchecks * glycemic control Will continue to follow. Subjective Date/time seen: 07/13/22 13:55 S/P colonoscopy earlier today and bowel prep last night -- findings noted (sigmoiditis); sleeping comfortably at the time of my visit; CCPD treatment has been initiated; no acute distress voiced; no other issues/events overnight or earlier this AM. Exam Narrative: General: WD/WN AA female in NAD Heart: normal S1 and S2; no rub Lungs: clear to auscultation Abdomen: soft, nontender, nondistended, positive bowel sounds Extremities: no cyanosis or clubbing; no edema Skin: warm and intact Objective Data Vital Signs Vital Signs: Vital Signs Temp Pulse Resp BP Pulse Ox O2 Del Method FiO2 07/13/22 13:14 73 21 H 120/46 L 100 Room Air 07/13/22 13:04 79 20 119/48 L 100 Room Air 07/13/22 12:54 88 22 H 114/42 L 99 Room Air 07/13/22 11:17 36.1 C L 77 18 125/42 L 100 Room Air 07/13/22 08:00 77 18 95 Room Air 07/13/22 08:00 77 07/13/22 06:00 37.2 C 77 18 132/57 L 95 07/13/22 04:00 75 07/13/22 00:00 76 07/12/22 21:50 99 Room Air 07/12/22 22:00 36.1 C L 77 16 149/56 H 99 07/12/22 20:00 72 20 100 CPAP 21 07/12/22 20:00 74 07/12/22 16:00 72
--- NOTE | 2022-07-13 17:11 | PM.IMPN ---
Progress Note: A&P Assessment and Plan (1) End-stage renal disease (ESRD): Code(s): N18.6 - End stage renal disease Status: Chronic Assessment and Plan: patient is on peritoneal dialysis nephrology has been consulted dialysis nurse has checked port and is functional (2) Acute dehydration: Code(s): E86.0 - Dehydration Status: Acute Assessment and Plan: gentle hydration (3) Nausea & vomiting: Code(s): R11.2 - Nausea with vomiting, unspecified Status: Acute Assessment and Plan: supportive care (4) Coronary artery disease: Code(s): I25.10 - Atherosclerotic heart disease of [place] coronary artery without angina pectoris Status: Acute Assessment and Plan: chest pain-free (5) Obstructive sleep apnea: Code(s): G47.33 - Obstructive sleep apnea (adult) (pediatric) Status: Acute Assessment and Plan: continue CPAP (6) Hypertension: Code(s): I10 - Essential (primary) hypertension Status: Chronic (7) Diabetes mellitus: Qualifiers: Diabetes mellitus type: type 2 Diabetes mellitus custodial insulin use: without tank house operator helper use Diabetes mellitus complication status: with kidney complications Diabetes mellitus complication detail: with chronic kidney disease Chronic kidney disease stage: stage 5, not on chronic dialysis Qualified Code(s): E11.22 - Type 2 diabetes mellitus with diabetic chronic kidney disease; N18.5 - Chronic kidney disease, stage 5 Code(s): E11.9 - Type 2 diabetes mellitus without complications Status: Chronic (8) Diarrhea: Code(s): R19.7 - Diarrhea, unspecified Status: Acute Assessment and Plan: 07/10/2028 interval history:? 61-year-old female with end-stage renal disease on peritoneal dialysis daily presented with diarrhea suspect infectious patient being treated with Zosyn and so far stool culture no growth, patient states her diarrhea have improved and is hungry wants advanced the diet, will start renal diet, patient with hypokalemia most likely secondary to diarrhea will monitor and supplement. 07/11/2028 interval history:? 61-year-old female with end-stage renal disease on peritoneal dialysis daily presented with diarrhea suspect infectious patient being treated with Zosyn and so far stool culture no growth, patient states her diarrhea have improved however today patient has blood diarrhea will consult GI? and was hungry advanced the diet, started renal diet, patient with hypokalemia most likely secondary to diarrhea will monitor and supplement. 07/12/2028 interval history:? 61-year-old female with end-stage renal disease on peritoneal dialysis daily presented with diarrhea suspect infectious patient being treated with Zosyn and so far stool culture no growth, will stop abx, patient states her diarrhea have improved however on 07/11 patient had bloody diarrhea consulted GI, recommending colonoscopy which is scheduled for tomorrow, was hungry advanced the diet, started renal diet, patient with hypokalemia most likely secondary to diarrhea will monitor and supplement. 07/13/2028 interval history:? 61-year-old female with end-stage renal disease on peritoneal dialysis daily presented with diarrhea suspect infectious patient being treated with Zosyn, patient also had blood BM, seen by GI and had a colonoscopy suspect inflammation and infectious etiology, biopsy are taken there was erosions and stigmata of bleeding, patient with ESRD on PD patient is developing metabolic acidosis discuss with Dr. Jaimes, suspect due to missing PD, will adjust dialysis, patient with hypokalemia most likely secondary to diarrhea will monitor and supplement. (9) Hypothyroidism: Code(s): E03.9 - Hypothyroidism, unspecified Status: Acute Subjective Date/time seen: 07/13/22 17:11 07/13/2028 interval history:? 61-year-old female with end-stage renal disease on peritoneal dialysis daily
[2022-07-13] MEDS: EZETIMIBE 10 MG TABLET PO (17:34)
[2022-07-13] MEDS: ASPIRIN 81 MG CHEWABLE TABLET PO (17:34)
[2022-07-13] MEDS: ATORVASTATIN 40 MG TABLET 80 MG PO (17:34)
[2022-07-13] MEDS: VITAMIN B CMPLX/VIT C/FOLIC AC 1 CAPSULE 1 CAP PO (17:35)
[2022-07-13] MEDS: CLOPIDOGREL BISULFATE 75 MG TABLET PO (17:35)
[2022-07-13] MEDS: SODIUM CHLORIDE 0.9% IV 1,000 ML 50 ML IV CONT (20:53)
[2022-07-14] VITALS: PULSE 73
[2022-07-14 04:00] VITALS: PULSE 78
[2022-07-14 04:53] VITALS: BP 152/65; PULSE 75; RESP 18; TEMP 36.6; O2SAT 100
[2022-07-14 06:20] LABS: Basophils Absolute Auto 0.1 K/mm3 (0.0-0.1); Basophils Percent Auto 0.8 % (0.2-1.2); Eosinophils Absolute Auto 0.3 K/mm3 (0-0.3); Eosinophils Percent Auto 3.2 % (0-4.4); Hematocrit 28.8 % (37.0-47.0); Immature Granulocyte Absolute 1.03 K/mm3 (0.00-0.031); Immature Granulocyte Percent A 12.1 % (0-0.5); Lymphocytes Absolute Auto 1.41 K/mm3 (0.9-3.2); Lymphocytes Percent Auto 16.6 % (18.3-44.2); Mean Corpuscular HGB Conc 31.3 g/dl (32-36); Mean Corpuscular Hemoglobin 27.5 pg (26-34); Mean Corpuscular Volume 88.1 fl (80-100); Monocytes Absolute Auto 0.9 K/mm3 (0.1-0.6); Monocytes Percent Auto 10.6 % (2.6-8.5); Neutrophils Absolute Auto 4.8 K/mm3 (1.3-6.7); Neutrophils Percent Auto 56.7 % (45.5-73.1); Nucleated Red Blood Cells Perc 0.5 % (0.0-0.2); Platelet Count Result 272 k/mm3 (150-375); Red Blood Count 3.27 M/mm3 (4.2-5.4); Red Cell Distribution Width 18.1 % (11.5-14.5); White Blood Count 8.5 K/mm3 (4.5-10.0)
[2022-07-14 06:44] LABS: Alanine Aminotransferase 45 U/L (6-35); Albumin Level 2.4 g/dL (3.5-5.1); Alkaline Phosphatase 152 U/L (38-126); Anion Gap 10 mmol/L (8-16); Aspartate Amino Transferase 36 U/L (14-36); Bilirubin,Total 0.2 mg/dL (0.2-1.3); Blood Urea Nitrogen 42 mg/dL (7-17); Calcium 7.9 mg/dL (8.4-10.2); Carbon Dioxide 16 mmol/L (22-30); Chloride 108 mmol/L (98-107); Estimated CRCL calculation 4 ml/min; Estimated Glomerular Filt Rate 4; Glucose 105 mg/dL (65-110); Phosphorus 4.2 mg/dL (2.5-4.5); Potassium 3.5 mmol/L (3.4-5.0); Sodium 134 mmol/L (137-145)
[2022-07-14 06:54] LABS: Burr Cells 1+ (NORMAL); Platelet Estimate Adequate (Adequate); Poikilocytosis 1+ (NORMAL)
[2022-07-14 08:00] VITALS: PULSE 100
--- NOTE | 2022-07-14 08:00 | WPDGIPROGNO ---
Progress Note: A&P Assessment and Plan (1) Colitis: Code(s): K52.9 - Noninfective gastroenteritis and colitis, unspecified Status: Acute Assessment and Plan: Colitis identified by endoscopy predominantly in the sigmoid colon. Histology pending. Grossly suspicious for infectious etiology. Stool cultures have been negative to date. Plan to continue broad-spectrum antibiotics. Review histology when available. Currently bloody diarrhea peers to be lessening. (2) Blood in stool: Code(s): K92.1 - Melena Status: Acute (3) Diarrhea: Code(s): R19.7 - Diarrhea, unspecified Status: Acute (4) End-stage renal disease (ESRD): Code(s): N18.6 - End stage renal disease Status: Chronic Subjective Date/time seen: 07/14/22 08:00 Patient alert comfortable this morning. She reports the diarrhea has lessened a great deal. No significant bleeding overnight. Review of Systems Review of Systems: Review of systems noncontributory. Exam Narrative: Physical exam reveals patient be in bed. HEENT exam unremarkable she is alert comfortable at rest. Lungs are clear. Heart without murmur. Abdomen bowel sounds present soft nontender with no organomegaly. Objective Data Vital Signs Vital Signs: Vital Signs - 24 hr 07/13/22 11:17 07/13/22 12:54 07/13/22 13:04 Temperature 97.0 F L Pulse Rate 77 88 79 Respiratory Rate 18 22 H 20 Blood Pressure 125/42 L 114/42 L 119/48 L Pulse Oximetry 100 99 100 Oxygen Delivery Room Air Room Air Room Air 07/13/22 13:14 07/13/22 14:00 07/13/22 16:00 Temperature 97.2 F L Pulse Rate 73 82 82 Respiratory Rate 21 H 16 Blood Pressure 120/46 L 165/69 H Pulse Oximetry 100 100 Oxygen Delivery Room Air 07/13/22 22:00 07/13/22 20:00 07/13/22 22:41 Temperature 98.3 F Pulse Rate 77 Respiratory Rate 16 Blood Pressure 154/65 H Pulse Oximetry 98 97 Oxygen Delivery Room Air Room Air 07/13/22 20:00 07/14/22 00:00 07/14/22 04:53 Temperature 97.9 F Pulse Rate 77 73 75 Respiratory Rate 18 Blood Pressure 152/65 H Pulse Oximetry 100 Oxygen Delivery 07/14/22 04:00 07/14/22 07:53 Temperature Pulse Rate 78 Respiratory Rate Blood Pressure Pulse Oximetry Oxygen Delivery Room Air Intake/Output Intake/Output: Intake & Output 07/11/22 07/12/22 07/13/22 07/14/22 23:59 23:59 23:59 23:59 Intake Total 2510 2360 690 200 Output Total 3177 103 200 Balance -667 2257 490 200 Meds/Results Medications: Active Medications Generic Name Dose Route Start Last Admin Trade Name Glen PRN Reason Stop Dose Admin Aspirin 81 mg 07/10/22 09:00 07/13/22 17:34 Aspirin 81 Mg Chewable Tablet PO 81 mg DAILY YENI Administration Atorvastatin Calcium 80 mg 07/09/22 17:00 07/13/22 17:34 Atorvastatin 40 Mg Tablet PO 80 mg DAILY@1700 YENI Administration Clopidogrel Bisulfate 75 mg 07/09/22 16:05 07/13/22 17:35 Clopidogrel Bisulfate 75 Mg Tablet PO 75 mg DAILY YNEI Administration Ezetimibe 10 mg 07/11/22 17:00 07/13/22 17:34 Ezetimibe 10 Mg Tablet PO 10 mg 1700 EYNI Administration Epoetin Ricci-epbx 10,000 units 07/13/22 09:00 07/13/22 09:02 Epoetin Ricci-Epbx 10,000 Units/Ml Vial SUB-Q 10,000 units MOWEFR YENI Administration Heparin Sodium (Porcine) 5,000 units 07/09/22 21:00 07/13/22 20:53 Heparin Sodium 5,000 Units/Ml Vial SUB-Q 5,000 units Q12HR YENI Administration Sodium Chloride 1,000 mls @ 50 mls/hr 07/09/22 11:50 07/13/22 20:53 Normal Saline Iv IV CONT 50 mls/hr .Q20H YENI Administration Piperacillin Sod/Tazobactam Sod 2.25 gm in 50 mls @ 100 mls/hr 07/09/22 12:30 07/13/22 21:24 Zosyn 2.25 Gm/D5w 50 Ml IVPB Infused Q12HR YENI Infusion Sodium Chloride 1,000 mls @ 30 mls/hr 07/12/22 18:05 07/13/22 12:56 Normal Saline Iv IV CONT 30 mls/hr .Q24H YENI Infusion Nicotine 1 patch 07/10/22 09:00 07/13/22 08:46
--- NOTE | 2022-07-14 08:09 | P.PNAN_ITS ---
Anes - Prog Note Post-Op Date/Time: 07/14/22 08:09 Cardiovascular status: normal Respiratory status: normal Airway patency: baseline Mental status: baseline Post-Op hydration status: normal Vital Signs: Last Vital Signs Temp 36.6 C 07/14/22 04:53 Pulse 75 07/14/22 04:53 Resp 18 07/14/22 04:53 BP 152/65 H 07/14/22 04:53 Pulse Ox 100 07/14/22 04:53 O2 Del Method Room Air 07/14/22 07:53 FiO2 21 07/13/22 08:00 Pain Score (VAS): 0 I/O: Intake & Output 07/13/22 07/14/22 07/14/22 23:59 07:59 15:59 Intake Total 590 200 Output Total 200 Balance 390 200 Laboratory Tests 07/14/22 06:08 07/14/22 06:08 07/14/22 07/14/22 06:08 06:08 WBC 8.5 RBC 3.27 L Hgb 9.0 L Hct 28.8 L MCV 88.1 MCH 27.5 MCHC 31.3 L RDW 18.1 H Plt Count 272 MPV 10.0 Immature Gran % (Auto) 12.1 H Neut % (Auto) 56.7 Lymph % (Auto) 16.6 L [place] % (Auto) 10.6 H Eos % (Auto) 3.2 Baso % (Auto) 0.8 Lymph # (Auto) 1.41 [place] # (Auto) 0.9 H Eos # (Auto) 0.3 Baso # (Auto) 0.1 Abs Immat Gran (auto) 1.03 H Absolute Neuts (auto) 4.8 Absolute Nucleated RBC 0.0 Nucleated RBC % 0.5 H Platelet Estimate Adequate Poikilocytosis 1+ [place] Cells 1+ Sodium 134 L Potassium 3.5 Chloride 108 H Carbon Dioxide 16 L Anion Gap 10 BUN 42 H Creatinine 11.50 H Estim Creat Clear Calc 4 Estimated GFR 4 L Glucose 105 Calcium 7.9 L Phosphorus 4.2 Total Bilirubin 0.2 AST 36 ALT 45 H Alkaline Phosphatase 152 H Total Protein 5.0 L Albumin 2.4 L Post-procedural complaints: none Patient Feedback: Patient satisfied with anesthetic care.
[2022-07-14] MEDS: VITAMIN B CMPLX/VIT C/FOLIC AC 1 CAPSULE 1 CAP PO (08:47)
[2022-07-14] MEDS: ASPIRIN 81 MG CHEWABLE TABLET PO (08:47)
[2022-07-14] MEDS: HEPARIN SODIUM 5,000 UNITS/ML VIAL 5000 UNITS SUB-Q (08:47)
[2022-07-14] MEDS: SODIUM BICARBONATE TAB 650 MG TABLET PO (08:47)
[2022-07-14] MEDS: NICOTINE (*PBKC) 14 MG PATCH 1 PATCH TRANSDERM (08:48)
[2022-07-14] MEDS: CLOPIDOGREL BISULFATE 75 MG TABLET PO (09:55)
--- NOTE | 2022-07-14 10:52 | P.PNNP_ITS ---
Progress Note: A&P Assessment and Plan (1) End-stage renal disease (ESRD): Code(s): N18.6 - End stage renal disease Status: Chronic Assessment and Plan: * continue nightly CCPD * normally follows with Dr. Segura at [facility] * follow electrolytes, volume status, and clearance * given metabolic acidosis, will start sodium bicarbonate to compensate * may need new PD cycler at home given admission history of problems with her home PD cycler (2) Diarrhea: Code(s): R19.7 - Diarrhea, unspecified Status: Acute Assessment and Plan: * infectious versus metabolic? * suspect more infectious given colonoscopy results... * s/p colonoscopy with findings noted - nonspecific inflammation of sigmoid colon with superficial erosion (suspect infectious etiology) * Gastroenterology following * empiric antibiotics (3) Hypokalemia: Code(s): E87.6 - Hypokalemia Status: Acute Assessment and Plan: * doing better * suspect related to dialysis, diarrhea, and fluctuating oral intake * replete as needed (4) Hypertension: Code(s): I10 - Essential (primary) hypertension Status: Chronic Assessment and Plan: * doing better at this time * apparently not taking any medications for this * follow trend of hemodynamics (5) Anemia: Code(s): D64.9 - Anemia, unspecified Status: Chronic Assessment and Plan: * due to ESRD * follow trend of H/H * Epogen 3x/week while hospitalized (6) Diabetes mellitus: Qualifiers: Chronic kidney disease stage: stage 5, not on chronic dialysis Diabetes mellitus complication detail: with chronic kidney disease Diabetes mellitus complication status: with kidney complications Diabetes mellitus penitentiary insulin use: without joint terminal attack controller use Diabetes mellitus type: type 2 Qualified Code(s): E11.22 - Type 2 diabetes mellitus with diabetic chronic kidney disease; N18.5 - Chronic kidney disease, stage 5 Code(s): E11.9 - Type 2 diabetes mellitus without complications Status: Chronic Assessment and Plan: * not currently on any medications * follow accuchecks * glycemic control Will continue to follow. Subjective Date/time seen: 07/14/22 10:52 Tolerated peritoneal dialysis treatment overnight as well as colonoscopy yesterday; still having some loose stools but seems better overall; eating and drinking reasonably well; no other acute issues/events noted overnight or earlier this morning; about to start eating her lunch. Exam Narrative: General: WD/WN AA female in NAD Heart: normal S1 and S2; no rub Lungs: clear to auscultation Abdomen: soft, nontender, nondistended, positive bowel sounds Extremities: no cyanosis or clubbing; no edema Skin: no rash Objective Data Vital Signs Vital Signs: Vital Signs Temp Pulse Resp BP Pulse Ox O2 Del Method 07/14/22 08:00 100 07/14/22 07:53 Room Air 07/14/22 04:00 78 07/14/22 04:53 36.6 C 75 18 152/65 H 100 07/14/22 00:00 73 07/13/22 20:00 77 07/13/22 22:41 97 Room Air 07/13/22 20:00 Room Air 07/13/22 22:00 36.8 C 77 16 154/65 H 98 07/13/22 16:00 82 07/13/22 14:00 36.2 C L 82 16 165/69 H 100 07/13/22 13:14 73 21 H 120/46 L 100 Room Air
--- NOTE | 2022-07-14 10:52 | PM.PNNEP ---
Progress Note: A&P Assessment and Plan (1) End-stage renal disease (ESRD): Code(s): N18.6 - End stage renal disease Status: Chronic Assessment and Plan: continue nightly CCPD normally follows with Dr. Segura at [facility] follow electrolytes, volume status, and clearance given metabolic acidosis, will start sodium bicarbonate to compensate may need new PD cycler at home given admission history of problems with her home PD cycler (2) Diarrhea: Code(s): R19.7 - Diarrhea, unspecified Status: Acute Assessment and Plan: infectious versus metabolic? suspect more infectious given colonoscopy results... s/p colonoscopy with findings noted - nonspecific inflammation of sigmoid colon with superficial erosion (suspect infectious etiology) Gastroenterology following empiric antibiotics (3) Hypokalemia: Code(s): E87.6 - Hypokalemia Status: Acute Assessment and Plan: doing better suspect related to dialysis, diarrhea, and fluctuating oral intake replete as needed (4) Hypertension: Code(s): I10 - Essential (primary) hypertension Status: Chronic Assessment and Plan: doing better at this time apparently not taking any medications for this follow trend of hemodynamics (5) Anemia: Code(s): D64.9 - Anemia, unspecified Status: Chronic Assessment and Plan: due to ESRD follow trend of H/H Epogen 3x/week while hospitalized (6) Diabetes mellitus: Qualifiers: Chronic kidney disease stage: stage 5, not on chronic dialysis Diabetes mellitus complication detail: with chronic kidney disease Diabetes mellitus complication status: with kidney complications Diabetes mellitus intermodal truck driver insulin use: without intermodal truck driver use Diabetes mellitus type: type 2 Qualified Code(s): E11.22 - Type 2 diabetes mellitus with diabetic chronic kidney disease; N18.5 - Chronic kidney disease, stage 5 Code(s): E11.9 - Type 2 diabetes mellitus without complications Status: Chronic Assessment and Plan: not currently on any medications follow accuchecks glycemic control Will continue to follow. Subjective Date/time seen: 07/14/22 10:52 Tolerated peritoneal dialysis treatment overnight as well as colonoscopy yesterday; still having some loose stools but seems better overall; eating and drinking reasonably well; no other acute issues/events noted overnight or earlier this morning; about to start eating her lunch. Exam Narrative: General: WD/WN AA female in NAD Heart: normal S1 and S2; no rub Lungs: clear to auscultation Abdomen: soft, nontender, nondistended, positive bowel sounds Extremities: no cyanosis or clubbing; no edema Skin: no rash Objective Data Vital Signs Vital Signs: Vital Signs Temp Pulse Resp BP Pulse Ox O2 Del Method 07/14/22 08:00 100 07/14/22 07:53 Room Air 07/14/22 04:00 78 07/14/22 04:53 36.6 C 75 18 152/65 H 100 07/14/22 00:00 73 07/13/22 20:00 77 07/13/22 22:41 97 Room Air 07/13/22 20:00 Room Air 07/13/22 22:00 36.8 C 77 16 154/65 H 98 07/13/22 16:00 82 07/13/22 14:00 36.2 C L 82 16 165/69 H 100 07/13/22 13:14 73 21 H 120/46 L 100 Room Air 07/13/22 13:04 79 20 119/48 L 100 Room Air 07/13/22 12:54 88 22 H 114/42 L 99 Room Air 07/13/22 11:17 36.1 C L 77 18 125/42 L 100 Room Air Intake/Output Intake/Output: Intake & Output 07/11/22 07/12/22 07/13/22 07/14/22 23:59 23:59 23:59 23:59 Intake Total 2510 2360 690 250 Output Total 3177 103 200 -40 Balance -667 2257 490 290 Meds/Results Medications: Active Medications Generic Name Dose Route Start Last Admin Trade Name Glen PRN Reason Stop Dose Admin Aspirin 81 mg 07/10/22 09:00 07/14/22 08:47 Aspirin 81 Mg Chewable Tablet PO 81 mg DAILY YENI Administration Atorvastatin Calcium 80
--- NOTE | 2022-08-01 18:36 | PM.DS ---
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 DS: Discharge Diagnosis Discharge Diagnosis (1) End-stage renal disease (ESRD): Code(s): N18.6 - End stage renal disease Status: Chronic (2) Acute dehydration: Code(s): E86.0 - Dehydration Status: Acute (3) Nausea & vomiting: Code(s): R11.2 - Nausea with vomiting, unspecified Status: Acute (4) Coronary artery disease: Code(s): I25.10 - Atherosclerotic heart disease of [place] coronary artery without angina pectoris Status: Acute (5) Obstructive sleep apnea: Code(s): G47.33 - Obstructive sleep apnea (adult) (pediatric) Status: Acute (6) Hypertension: Code(s): I10 - Essential (primary) hypertension Status: Chronic (7) Diabetes mellitus: Qualifiers: Diabetes mellitus type: type 2 Diabetes mellitus shelter insulin use: without home health billing specialist use Diabetes mellitus complication status: with kidney complications Diabetes mellitus complication detail: with chronic kidney disease Chronic kidney disease stage: stage 5, not on chronic dialysis Qualified Code(s): E11.22 - Type 2 diabetes mellitus with diabetic chronic kidney disease; N18.5 - Chronic kidney disease, stage 5 Code(s): E11.9 - Type 2 diabetes mellitus without complications Status: Chronic (8) Diarrhea: Code(s): R19.7 - Diarrhea, unspecified Status: Acute (9) Hypothyroidism: Code(s): E03.9 - Hypothyroidism, unspecified Status: Acute DS: Summary Hospital Course Reason for hospitalization: Chief Complaint: ?MALFUNCTIONING PERITONEAL DIALYSIS? MACHINE. Narrative: ?THIS IS A 61-YEAR-OLD FEMALE WITH PAST MEDICAL HISTORY SIGNIFICANT FOR END-STAGE RENAL DISEASE ON PERITONEAL DIALYSIS PATIENT PRESENTS TO THE EMERGENCY ROOM STATING THAT HER MACHINE HAS NOT BEEN WORKING PROPERLY.? PATIENT DENIES ANY FEVERS, RIGORS, CHILLS, ABDOMINAL PAIN,? had NAUSEA,? had VOMITING, for the last 3 days or so. PRELIMINARY WORKUP WAS SIGNIFICANT FOR CT OF ABDOMEN AND PELVIS WAS REPORTED : Hospital Course: 61-year-old female with end-stage renal disease on peritoneal dialysis daily presented with diarrhea suspect infectious patient being treated with Zosyn, patient also had bloody BM, seen by GI and had a colonoscopy suspect inflammation and infectious etiology, biopsy are taken there was erosions and stigmata of bleeding, patient with ESRD on PD patient is developing metabolic acidosis discuss with Dr. Jaimes, suspect due to missing PD, will adjust dialysis, patient with hypokalemia most likely secondary to diarrhea will monitor and supplement. patient seen by Nephrology and adjusted peritoneal dialysis solution to help correct the metabolic acidosis, patient clinically stable discharge the patient today. Time Spent with Patient Time attestation: Total time spent providing and/or coordinating discharge services: Exam Narrative: Patient is comfortable, NAD HEENT: eyes are clear and none icteric LUNGS:CTA HEART: RR S1S2 ABD: BS+, Soft and nontender Lower extremities: no edema SKIN: nonjaundiced Neuro: grossly intact. DS: Data Data Completed and Pending Completed studies during hospitalization: Pending at discharge 07/13/22 12:54 Surgical [PTH] Routine Discharge Plan Discharge Attending physician on discharge: Ayden Mcallister Consulting providers: Arpit Lindquist ; Kurtis Barnes ; Ayden Mcallister ; Aaron Polanco ; Sachin Ralph Discharging Clinician: Ayden Mcallister Patient Disposition: Home, Self-Care Activity: no preference Diet: as tolerated Patient Instructions: Antibiotic Form, Dehydration (DC) Stand Alone Forms: General Discharge Information Follow-up/Referrals: Harshal,Samm Aguirre. [Primary Care Provider] - Kurtis Barnes MD [Physician] - Arpit Lindquist MD [Physician] - Oscar
== END 2022-07-14 13:09 | disposition home or self-care (01) | DRG 391 ==
LOC: ANHED 15:41 → ANH3MEDSUR 21:49
PROVIDERS: Emergency Medicine; Internal Medicine; Internal Medicine Gastroenterology; Internal Medicine Nephrology; Admitting Provider Internal Medicine; Emergency Provider Emergency Medicine; PCP Internal Medicine Infectious Disease; Visit Provider Family Medicine
PROC: 0DJD8ZZ Inspection of Lower Intestinal Tract, Via Natural or Artificial Opening Endoscopic (ICD-10-PCS; CPT 45378; principal; 2022-07-13 12:00)
DX: K52.9 Noninfective gastroenteritis and colitis, unspecified (principal); N18.6 End stage renal disease; E87.2 Acidosis; I69.351 Hemiplegia and hemiparesis following cerebral infarction affecting right dominant side; I12.0 Hypertensive chronic kidney disease with stage 5 chronic kidney disease or end stage renal disease; K57.30 Diverticulosis of large intestine without perforation or abscess without bleeding; D63.1 Anemia in chronic kidney disease; D72.829 Elevated white blood cell count, unspecified; E11.22 Type 2 diabetes mellitus with diabetic chronic kidney disease; E11.319 Type 2 diabetes mellitus with unspecified diabetic retinopathy without macular edema; E86.0 Dehydration; E87.6 Hypokalemia; E78.5 Hyperlipidemia, unspecified; E03.9 Hypothyroidism, unspecified; F41.9 Anxiety disorder, unspecified; F32.A Depression, unspecified; F17.210 Nicotine dependence, cigarettes, uncomplicated; G47.33 Obstructive sleep apnea (adult) (pediatric); I25.10 Atherosclerotic heart disease of native coronary artery without angina pectoris; I25.2 Old myocardial infarction; J44.9 Chronic obstructive pulmonary disease, unspecified; N25.0 Renal osteodystrophy; Z99.2 Dependence on renal dialysis; Z90.710 Acquired absence of both cervix and uterus; Z90.722 Acquired absence of ovaries, bilateral; Z90.79 Acquired absence of other genital organ(s); Z79.82 Long term (current) use of aspirin; Z79.02 Long term (current) use of antithrombotics/antiplatelets; Z79.899 Other long term (current) drug therapy; Z95.5 Presence of coronary angioplasty implant and graft; Z99.89 Dependence on other enabling machines and devices
CPT/HCPCS: 36415; 74176; 80053; 80069; 82274; 83036; 83690; 83735; 84100; 84132; 84443; 85025; 85027; 86706; 87045; 87340; 87427; 88305; 90945; 94003; 94660; 96361; 96365; 96372; 96376; A9270; G0378; G0379; J1644; J2543; J2704; J3475; J7030; J7040; Q5105